=== PATIENT | female | born 1945 | race Caucasian/White ===

== ENCOUNTER 2018-04-19 22:25 | Emergency (ER) | payer MEDICARE, OTHER ==
--- NOTE | 2018-04-21 00:38 | EDM.PDOC ---
ED HPI GENERAL MEDICAL PROBLEM - General Chief Complaint: Abdominal Pain Stated Complaint: HERNIA PAIN PER PT Time Seen by Provider: 04/19/18 23:20 Source of Information: Reports: Patient History Limitations: Reports: No Limitations - History of Present Illness INITIAL COMMENTS - FREE TEXT/NARRATIVE: This pleasant stoic and overweight woman has moderate flat affect, doesn't smile , looks straight ahead and almost stares vacantly at me as if to fixate on every word I'm saying . She's had a large abdominal hernia abdominal wall. Last evening she sat down and noted left para rectus abdominal wall herniae that had been repaired repaired with mesh graft hernia was getting bigger. With this she became concerned. Her last visit to her doctor was 6 months ago. She did not strain more today than usual. She has a bowel movement today and yesterday without difficulty. Has 1 out of 10 discomfort presently. At the site of her para rectus midabdomen hernia. He eats regularly .he said previous calcaneal surgery. He drove himself to the hospital today. . 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 (see below) Other Treatments RETAIL PROPERTY MANAGER: cool cloth to forehead - Related Data Allergies Allergy/AdvReac Type Severity Reaction Status Date / Time adhesive Allergy Rash Verified 05/14/14 10:08 Penicillins Allergy Hives Verified 05/14/14 10:08 sulfamethoxazole Allergy Hives Verified 05/14/14 10:08 [From Bactrim] trimethoprim [From Bactrim] Allergy Hives Verified 05/14/14 10:08 Home Meds: Home Meds Aspirin [Ecotrin] 325 mg PO DAILY 04/08/14 [History] FLUoxetine [PROzac] 40 mg PO DAILY 04/08/14 [History] Fluticasone/Salmeterol [Advair 250-50] 1 puff PO BID 04/08/14 [History] MV,Ca,Min/Iron Fum/FA/Vit K [Multi For Her Tablet] 1 tab PO DAILY 04/08/14 [ History] QUEtiapine Fumarate [Seroquel] 25 mg PO DAILY 04/08/14 [History] QUEtiapine Fumarate [Seroquel] 50 mg PO BEDTIME 04/08/14 [History] Terbinafine HCl [Terbinafine] 1 applic TOP DAILY 04/08/14 [History] Past Medical History Cardiovascular History: Reports: Blood Clots/VTE/DVT, Syncope Respiratory History: Reports: COPD, Pneumonia, Recurrent Gastrointestinal History: Reports: Bowel Obstruction, Other (See Below) Other Gastrointestinal History: colon surgery with hernia following- hernia to left lower abd repaired with mesh but over time hernia reapeared 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 Musculoskeletal History: Reports: Arthritis, Osteoarthritis Other Psychiatric History: verbalizes some depression at times - Past Surgical History GI Surgical History: Reports: Colon, Hernia Repair/Other Social & Family History - Family History Family Medical History: Noncontributory - Tobacco Use Smoking Status *Q: Current Every Day Smoker Years of Tobacco use: 50 Packs/Tins Daily: 1.5 Used Tobacco, but Quit: No - Caffeine Use Caffeine Use: Reports: Soda Other Caffeine Use: 8cans of pop daily - Alcohol Use Days Per Week of Alcohol Use: 2 Number of Drinks Per Day: 2 Total Drinks Per Week: 4 - Recreational Drug Use Recreational Drug Use: No ED ROS GENERAL - Review of Systems Review Of Systems: See Below Constitutional: Reports: No Symptoms HEENT: Reports: No Symptoms Respiratory: Reports: No Symptoms Cardiovascular: Reports: No Symptoms Endocrine: Reports: No Symptoms GI/Abdominal: Reports: Abdominal Pain (7 years ago had a mesh implant and then) , Other (Is mild abdominal discomfort for the mesh implant was and gave way.) : Reports: No Symptoms Musculoskeletal: Reports: No Symptoms Skin: Reports: No Symptoms Neurological: Reports: No Symptoms Psychiatric: Reports: No Symptoms ED EXAM, GI/ABD - Physical Exam Exam: See Below Text/Narrative:: This patient is a pleasant obese woman with flat affect with mild abdominal discomfort. Exam Limited By: No Limitations General Appearance: Alert, WD/WN, Mild Distress Eyes: Bilateral: Normal Appearance Ears: Normal External Exam, Normal Canal, Hearing Grossly Normal, Normal TMs Nose: Normal Inspection, Normal Mucosa, No Blood Throat/Mouth: Normal Inspection Head: Atraumatic Neck: Normal Inspection Respiratory/Chest: No Respiratory Distress GI/Abdominal Exam: Soft, Non-Tender, No Abnormal Bruit, No Mass, Pelvis Stable, Other (The mesh implant service cannot be palpated through the abdominal wall.) (Female) Exam: Deferred Rectal (Female) Exam: Normal Exam Back Exam: Normal Inspection Extremities: Normal Inspection Neurological: Alert, Oriented, Normal Cognition Psychiatric: Normal Affect, Normal Mood Skin Exam: Warm, Dry, Intact, Normal Color Course - Vital Signs Last Recorded V/S: Last Vital Signs Temp 36.4 C 04/19/18 23:00 Pulse 76 04/19/18 23:00 Resp 18 04/19/18 23:00 BP 134/60 04/19/18 23:00 Pulse Ox 94 L 04/19/18 23:00 Departure - Departure Time of Disposition: 23:45 Disposition: Home, Self-Care 01 Clinical Impression: Abdominal hernia without obstruction and without gangrene - Discharge Information Instructions: Abdominal Pain, Adult, [id number] Referrals: Lv Deshpande MD [Primary Care Provider] - Forms: ED Department Discharge Additional Instructions: Follow-up here doctor next 3-7 days. you need to see a surgeon to discuss possible repair of this large abdominal hernia.
== END 2018-04-20 00:45 | disposition home or self-care (01) ==
LOC: FB.ED 22:25
DX: K46.9 Unspecified abdominal hernia without obstruction or gangrene (principal); F17.210 Nicotine dependence, cigarettes, uncomplicated; M19.90 Unspecified osteoarthritis, unspecified site; Z79.82 Long term (current) use of aspirin; Z79.899 Other long term (current) drug therapy; Z91.09 Other allergy status, other than to drugs and biological substances; Z88.0 Allergy status to penicillin; Z88.2 Allergy status to sulfonamides; Z88.1 Allergy status to other antibiotic agents
CPT/HCPCS: 99282

== ENCOUNTER 2018-11-06 17:01 | Emergency (ER) | payer MEDICARE, OTHER ==
[2018-11-06] MEDS ORDERED: Sodium Chloride 0.9% 10 ML Syringe FLUSH PRN (17:23)
[2018-11-06] MEDS ORDERED: Sodium Chloride 0.9% 500 ML IV ONE (17:25)
[2018-11-06] MEDS ORDERED: Albuterol/Ipratropium 3.0-0.5 MG/3 ML Neb Soln NEB ONE ×2 (17:26→18:43)
[2018-11-06] MEDS ORDERED: Dexamethasone 4 MG/ML 5 ML MDV IVPUSH ONE (17:26)
[2018-11-06] MEDS ORDERED: Pantoprazole 40 MG Vial IVPUSH ONE (17:27)
[2018-11-06] MEDS ORDERED: Ondansetron 4 MG/2 ML SDV IVPUSH ONE (17:27)
[2018-11-06] MEDS ORDERED: HYDROmorphone 2 MG/ML SDV IVPUSH ONE (17:27)
--- NOTE | 2018-11-06 17:36 | EDM.PDOC ---
ED HPI GENERAL MEDICAL PROBLEM - General Chief Complaint: Abdominal Pain Stated Complaint: SOB Time Seen by Provider: 11/06/18 17:29 Source of Information: Reports: Patient History Limitations: Reports: No Limitations - History of Present Illness INITIAL COMMENTS - FREE TEXT/NARRATIVE: Presents with "hernia" pain, N/V/D, and SOB since yesterday. Has a h/o COPD, still smokes cigarettes, denies CAD. Cough is chronic, no worse. Onset Date: 11/05/18 Location: Reports: Abdomen Quality: Reports: Dull Severity: Moderate Associated Symptoms: Reports: Cough, Nausea/Vomiting, Shortness of Breath. Denies: Chest Pain Left abdomen Pain Score (Numeric/FACES): 7 - Related Data Allergies Allergy/AdvReac Type Severity Reaction Status Date / Time adhesive Allergy Rash Verified 11/06/18 17:22 Penicillins Allergy Hives Verified 11/06/18 17:22 sulfamethoxazole Allergy Hives Verified 11/06/18 17:22 [From Bactrim] trimethoprim [From Bactrim] Allergy Hives Verified 11/06/18 17:22 Home Meds: Home Meds Aspirin [Ecotrin] 325 mg PO DAILY 04/08/14 [History] FLUoxetine [PROzac] 40 mg PO DAILY 04/08/14 [History] Fluticasone/Salmeterol [Advair 250-50] 1 puff PO BID 04/08/14 [History] MV,Ca,Min/Iron Fum/FA/Vit K [Multi For Her Tablet] 1 tab PO DAILY 04/08/14 [ History] QUEtiapine Fumarate [Seroquel] 25 mg PO DAILY 04/08/14 [History] QUEtiapine Fumarate [Seroquel] 50 mg PO BEDTIME PRN 04/08/14 [History] Cholecalciferol (Vitamin D3) [Vitamin D3] 1,000 units PO DAILY 11/06/18 [History ] Past Medical History Cardiovascular History: Reports: Blood Clots/VTE/DVT, Syncope Respiratory History: Reports: COPD, Pneumonia, Recurrent Gastrointestinal History: Reports: Bowel Obstruction, Other (See Below) Other Gastrointestinal History: colon surgery with hernia following- hernia to left lower abd repaired with mesh but over time hernia reapeared 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 Musculoskeletal History: Reports: Arthritis, Osteoarthritis Other Psychiatric History: verbalizes some depression at times Oncologic (Cancer) History: Reports: Lung - Past Surgical History GI Surgical History: Reports: Appendectomy, Cholecystectomy, Colon, Hernia Repair/Other Social & Family History - Family History Family Medical History: Noncontributory - Tobacco Use Smoking Status *Q: Current Every Day Smoker Tobacco Use Within Last Twelve Months: Cigarettes - Caffeine Use Caffeine Use: Reports: Soda Other Caffeine Use: 8cans of pop daily ED ROS GENERAL - Review of Systems Review Of Systems: ROS reveals no pertinent complaints other than HPI. ED EXAM, GI/ABD - Physical Exam Exam: See Below Exam Limited By: No Limitations General Appearance: Alert, WD/WN, No Apparent Distress Ears: Normal External Exam Nose: Normal Inspection Throat/Mouth: No Airway Compromise Head: Atraumatic, Normocephalic Neck: Supple Respiratory/Chest: No Respiratory Distress, Decreased Breath Sounds, Wheezing Cardiovascular: Regular Rate, Rhythm, No Murmur GI/Abdominal Exam: Normal Bowel Sounds, Soft, Tender (Lower abdominal hernia is firm tender, I am unable to reduce it) Back Exam: Full Range of Motion Extremities: Normal Range of Motion Neurological: Alert, Normal Cognition Skin Exam: Warm, Dry, Intact EKG INTERPRETATION EKG Date: 11/06/18 Time: 17:54 Rhythm: NSR Rate (Beats/Min): 90 [place]: Normal P-Wave: Present ST-T: Normal Course - Vital Signs Last Recorded V/S: Last Vital Signs Temp 36.9 C 11/06/18 21:09 Pulse 97 11/06/18 21:09 Resp 18 11/06/18 21:09 BP 135/58 L 11/06/18 21:09 Pulse Ox 94 L 11/06/18 21:09 - Orders/Labs/Meds Orders: Active Orders 24 hr Category Date Time Status Benitez Catheter Insertion [Insert Urinary Catheter] [OM. Care 11/06/18 18:30 Ordered PC] Q24H Oxygen Therapy, ED [RC] ASDIRECTED Care 11/06/18 17:56 Active Urinary Catheter Assessment [RC] QSHIFT Care 11/06/18 18:17 Active CXR [Chest 1V Frontal] [CR] Stat Exams 11/06/18 17:23 Taken Chest Abdomen Pelvis w Cont [CT] Stat Exams 11/06/18 18:34 Ordered Sodium Chloride 0.9% [Normal Saline] 1,000 ml Med 11/06/18 18:45 Active IV ASDIRECTED Sodium Chloride 0.9% [Saline Flush] Med 11/06/18 17:23 Active 10 ml FLUSH ASDIRECTED PRN Saline Lock Insert [OM.PC] Routine Oth 11/06/18 17:23 Ordered EKG 12 Lead [EK] Stat Ther 11/06/18 17:23 Ordered Medication Orders Sodium Chloride (Normal Saline) 1,000 mls @ 100 mls/hr IV ASDIRECTED KULDEEP Last Admin: 11/06/18 18:37 Dose: 100 mls/hr Sodium Chloride (Saline Flush) 10 ml FLUSH ASDIRECTED PRN PRN Reason: Keep Vein Open Last Admin: 11/06/18 17:29 Dose: 10 ml Labs: Laboratory Tests 11/06/18 11/06/18 11/06/18 Range/Units 17:45 17:45 17:45 WBC 12.5 H (4.5-12.0) X10-3/uL RBC 5.38 H (3.23-5.20) x10(6)uL Hgb 16.4 H (11.5-15.5) g/dL Hct 47.4 (30.0-51.3) % MCV 88.0 (80-96) fL MCH 30.4 (27.7-33.6) pg MCHC 34.6 (32.2-35.4) g/dL RDW 13.0 (11.5-15.5) % Plt Count 494 H (125-369) X10(3)uL MPV 6.4 L (7.4-10.4) fL Neut % (Auto) 82.4 H (46-82) % Lymph % (Auto) 10.7 L (13-37) % [place] % (Auto) 5.7 (4-12) % Eos % (Auto) 1 (1.0-5.0) % Baso % (Auto) 1 (0-2) % Neut # (Auto) 10.3 H (1.6-8.3) # Lymph # (Auto) 1.3 (0.6-5.0) # [place] # (Auto) 0.7 (0.0-1.3) # Eos # (Auto) 0.1 (0.0-0.8) # Baso # (Auto) 0.1 (0.0-0.2) # D-Dimer, Quantitative (0.0-0.59) mg/LFEU Sodium 134 L (135-145) mmol/L Potassium 3.6 (3.5-5.3) mmol/L Chloride 95 L (100-110) mmol/L Carbon Dioxide 34 H (21-32) mmol/L BUN 10 (7-18) mg/dL Creatinine 1.0 (0.55-1.02) mg/dL Est Cr Clr Drug Dosing TNP Estimated GFR (MDRD) 54 L (>60) BUN/Creatinine Ratio 10.0 (9-20) Glucose 123 H (80-116) mg/dL Lactic Acid (0.4-2.2) mmol/L Calcium 10.3 H (8.6-10.2) mg/dL Total Bilirubin 0.7 (0.1-1.3) mg/dL AST 22 (5-25) IU/L ALT 22 (12-36) U/L Alkaline Phosphatase 118 H (56-112) IU/L Troponin I < 0.017 L (<0.017-0.056) ng/mL Total Protein 7.7 (6.0-8.0) g/dL Albumin 3.8 (3.2-4.6) g/dL Globulin 3.9 g/dL Albumin/Globulin Ratio 1.0 Amylase 26 (25-115) U/L Urine Color (YELLOW) Urine Appearance (CLEAR) Urine pH (5.0-6.5) Ur Specific [place] (1.010-1.025) Urine Protein (NEGATIVE) mg/dL Urine Glucose (UA) (NORMAL) mg/dL Urine Ketones (NEGATIVE) mg/dL Urine Occult Blood (NEGATIVE) Urine Nitrite (NEGATIVE) Urine Bilirubin (NEGATIVE) Urine Urobilinogen (NEGATIVE) mg/dL Ur Leukocyte Esterase (NEGATIVE) Urine RBC (0-5) Urine WBC (0-5) Ur Squamous Epith Cells (NS,R,O) Urine Bacteria (NS) Urine Mucus (NS) 11/06/18 11/06/18 11/06/18 Range/Units 17:45 17:45 18:13 WBC (4.5-12.0) X10-3/uL RBC (3.23-5.20) x10(6)uL Hgb (11.5-15.5) g/dL Hct (30.0-51.3) % MCV (80-96) fL MCH (27.7-33.6) pg MCHC (32.2-35.4) g/dL RDW (11.5-15.5) % Plt Count (125-369) X10(3)uL MPV (7.4-10.4) fL Neut % (Auto) (46-82) % Lymph % (Auto) (13-37) % [place] % (Auto) (4-12) % Eos % (Auto) (1.0-5.0) % Baso % (Auto) (0-2) % Neut # (Auto) (1.6-8.3) # Lymph # (Auto) (0.6-5.0) # [place] # (Auto) (0.0-1.3) # Eos # (Auto) (0.0-0.8) # Baso # (Auto) (0.0-0.2) # D-Dimer, Quantitative 1.83 H (0.0-0.59) mg/LFEU Sodium (135-145) mmol/L Potassium (3.5-5.3) mmol/L Chloride (100-110) mmol/L Carbon Dioxide (21-32) mmol/L BUN (7-18) mg/dL Creatinine (0.55-1.02) mg/dL Est Cr Clr Drug Dosing Estimated GFR (MDRD) (>60) BUN/Creatinine Ratio (9-20) Glucose (80-116) mg/dL Lactic Acid 1.3 (0.4-2.2) mmol/L Calcium (8.6-10.2) mg/dL Total Bilirubin (0.1-1.3) mg/dL AST (5-25) IU/L ALT (12-36) U/L Alkaline Phosphatase (56-112) IU/L Troponin I (<0.017-0.056) ng/mL Total Protein (6.0-8.0) g/dL Albumin (3.2-4.6) g/dL Globulin g/dL Albumin/Globulin Ratio Amylase (25-115) U/L Urine Color Yellow (YELLOW) Urine Appearance Clear (CLEAR) Urine pH 6.5 (5.0-6.5) Ur Specific [place] 1.015 (1.010-1.025) Urine Protein Trace (NEGATIVE) mg/dL Urine Glucose (UA) Normal (NORMAL) mg/dL Urine Ketones 15 H (NEGATIVE) mg/dL Urine Occult Blood Moderate H (NEGATIVE) Urine Nitrite Negative (NEGATIVE) Urine Bilirubin Small H (NEGATIVE) Urine Urobilinogen Normal (NEGATIVE) mg/dL Ur Leukocyte Esterase Negative (NEGATIVE) Urine RBC 5-10 H (0-5) Urine WBC 0-5 (0-5) Ur Squamous Epith Cells Few H (NS,R,O) Urine Bacteria Moderate H (NS) Urine Mucus Moderate H (NS) Meds: Medications Generic Name Dose Route Start Last Admin Trade Name Freq PRN Reason Stop Dose Admin Sodium Chloride 1,000 mls @ 100 mls/hr 11/06/18 18:45 11/06/18 18:37 Normal Saline IV 100 mls/hr ASDIRECTED KULDEEP Administration Sodium Chloride 10 ml 11/06/18 17:23 11/06/18 17:29 Saline Flush FLUSH 10 ml ASDIRECTED PRN Administration Keep Vein Open Discontinued Medications Generic Name Dose Route Start Last Admin Trade Name Freq PRN Reason Stop Dose Admin Albuterol/Ipratropium 3 ml 11/06/18 17:26 11/06/18 17:39 Duoneb 3.0-0.5 Mg/3 Ml NEB 11/06/18 17:27 3 ml ONETIME ONE Administration Albuterol/Ipratropium 3 ml 11/06/18 18:43 11/06/18 18:45 Duoneb 3.0-0.5 Mg/3 Ml NEB 11/06/18 18:44 3 ml ONETIME ONE Administration Cefoxitin Sodium 2 gm 11/06/18 21:12 Mefoxin IVPUSH 11/06/18 21:13 ONETIME ONE Dexamethasone 10 mg 11/06/18 17:26 11/06/18 17:45 Dexamethasone IVPUSH 11/06/18 17:27 10 mg ONETIME ONE Administration Hydromorphone HCl 0.5 mg 11/06/18 17:27 11/06/18 17:41 Dilaudid IVPUSH 11/06/18 17:28 0.5 mg ONETIME ONE Administration Sodium Chloride 500 mls @ 500 mls/hr 11/06/18 17:25 11/06/18 17:33 Normal Saline IV 11/06/18 18:24 500 mls/hr .BOLUS ONE Administration Iopamidol 83 ml 11/06/18 19:23 11/06/18 19:45 Isovue-370 (76%) IV 11/06/18 19:24 83 ml . DIRECTED ONE Administration Ondansetron HCl 4 mg 11/06/18 17:27 11/06/18 17:36 Zofran IVPUSH 11/06/18 17:28 4 mg ONETIME ONE Administration Pantoprazole Sodium 40 mg 11/06/18 17:27 11/06/18 17:43 Protonix Iv IVPUSH 11/06/18 17:28 40 mg ONETIME ONE Administration - Radiology Interpretation Free Text/Narrative:: CTA Chest/Abd/Pelvis: No pulmonary embolus, stable SHIRIN nodular density, AAA @ 3.8 cm, mechanical small bowel obstruction due to incarcerated ventral hernia, no free air. (per Dr. Nolen) - Re-Assessments/Exams Free Text/Narrative Re-Assessment/Exam: 11/06/18 21:04 Pain and nausea have improved. I am still unable to reduce the incarcerated hernia after three attempts. Wheezes have slightly improved after DuoNeb x 2 and Decadron 10mg IV. 11/06/18 21:07 Dr. Arellano recommends [facility] transfer due to respiratory issues. 11/06/18 21:17 Dr. Franklin accepts patient for transfer to [facility]. Departure - Departure Time of Disposition: 21:18 Disposition: DC/Tfer to Acute Hospital 02 Condition: Fair Clinical Impression: Small bowel obstruction, Incarcerated ventral hernia, COPD exacerbation - Discharge Information Referrals: PCP,Unknown [Primary Care Provider] - Forms: ED Department Discharge - My Orders Last 24 Hours: My Active Orders 11/06/18 17:23 CXR [Chest 1V Frontal] [CR] Stat Sodium Chloride 0.9% [Saline Flush] 10 ml FLUSH ASDIRECTED PRN Saline Lock Insert [OM.PC] Routine EKG 12 Lead [EK] Stat 11/06/18 17:56 Oxygen Therapy, ED [RC] ASDIRECTED 11/06/18 18:17 Urinary Catheter Assessment [RC] QSHIFT 11/06/18 18:30 Benitez Catheter Insertion [Insert Urinary Catheter] [OM.PC] Q24H 11/06/18 18:34 Chest Abdomen Pelvis w Cont [CT] Stat 11/06/18 18:45 Sodium Chloride 0.9% [Normal Saline] 1,000 ml IV ASDIRECTED - Assessment/Plan Last 24 Hours: My Active Orders 11/06/18 17:23 CXR [Chest 1V Frontal] [CR] Stat Sodium Chloride 0.9% [Saline Flush] 10 ml FLUSH ASDIRECTED PRN Saline Lock Insert [OM.PC] Routine EKG 12 Lead [EK] Stat 11/06/18 17:56 Oxygen Therapy, ED [RC] ASDIRECTED 11/06/18 18:17 Urinary Catheter Assessment [RC] QSHIFT 11/06/18 18:30 Benitez Catheter Insertion [Insert Urinary Catheter] [OM.PC] Q24H 11/06/18 18:34 Chest Abdomen Pelvis w Cont [CT] Stat 11/06/18 18:45 Sodium Chloride 0.9% [Normal Saline] 1,000 ml IV ASDIRECTED
[2018-11-06] MEDS ORDERED: Sodium Chloride 0.9% 1,000 ML IV SCH (18:45)
[2018-11-06] MEDS ORDERED: Iopamidol 755 Mg/ML 100 ML Bottle IV ONE (19:23)
[2018-11-06] MEDS ORDERED: cefOXitin 2 GM Vial IVPUSH ONE (21:12)
--- NOTE | 2018-11-07 09:56 | CT ---
INDICATION: Short of breath, abdominal pain, PE protocol, elevated D-dimer. CT CHEST, ABDOMEN, AND PELVIS WITH CONTRAST: CT CHEST: Spiral 1.25 mm axial sections were obtained through the chest with sagittal and coronal reconstructions, 11/06/18, and revealed there are heavy markings, as previously, partly fibrotic and in the left upper lobe, compatible with residual of malignancy, post radiation therapy. This appears stable, compared with 10/30/18. No evidence of pulmonary emboli could be identified. An acute area of pneumonia was not seen. Mediastinal lymphadenopathy is again noted, which is nonspecific and certainly could be related to the patients neoplasia. The heart did not appear enlarged. No pericardial effusion was seen. Calcifications are noted in the aorta and coronary arteries. No evidence of pulmonary emboli could be identified. A dextroconcave scoliosis of the lower thoracic spine is noted with mild hypertrophic degenerative changes in the mid thoracic spine and upper middle thoracic spine. IMPRESSION: 1. No evidence of PE identified. 2. No definite acute abnormality was seen. 3. Left upper lobe post malignancy changes, stable. 4. Areas of pleural parenchymal change again noted in a few areas, compatible with fibrosis. CT ABDOMEN AND PELVIS WITH CONTRAST: Examination of the abdomen and pelvis was obtained with spiral 3.75 mm axial sections with sagittal and coronal reconstructions with IV contrast only. An abdominal aortic aneurysm is noted, infrarenal and supra-bifurcation, measuring 3.8 cm. Just above the bifurcation, the lumen narrows to approximately 18 mm. A large ventral lower abdominal/upper pelvis hernia is noted, which has a large opening into the ventral midline of the abdomen, measuring approximately 65 mm. The hernia includes multiple loops of small bowel with dilated small bowel within the peritoneal cavity. Fusiform narrowing of the lumen of the dilated bowel is noted extending into the hernia. Torsion on the bowel may be present. No definite wall thickening is seen. No pneumatosis intestinalis is noted. The ventral hernia measured approximately 15.6 x 7.9 cm in transverse and AP diameters. The dilated small bowel has multiple air fluid levels at various heights, suggesting the possibility of mechanically obstructive process, due to that fusiform narrowing at the opening of the ventral hernia, best seen on axial image #75 of #[id number]. A Benitez catheter is noted in the urinary bladder. The appendix is absent, compatible with history of its removal. The gallbladder is absent, compatible with history of its removal. Evidence of anastomosis is noted in the proximal sigmoid colon from previous colonic resection. Findings were compared with CT of the pelvis dated 07/14/10, at which time a hernia apparently was not present. The abdominal aortic aneurysm was only 2.6 cm on the previous 2009 examination. Bilateral inguinal hernias, including only fat, are noted. These are small in size. Mild renal cortical scarring is noted. No obstructive uropathy was suggested. The liver appears grossly normal. The common bile duct appeared normal for a post cholecystectomy patient. The spleen and pancreas appear to be normal. The adrenal glands were unremarkable. No definite retroperitoneal mass was seen. No additional organomegaly, mass lesions, or free fluid collections were identified in the abdomen or pelvis. The uterus is absent, compatible with history of its removal. Degenerative changes and disk disease are noted at L4-5 and L5-S1 with grade 1 anterolisthesis at L4-5. IMPRESSION: 1. Large ventral hernia with fusiform narrowing of a loop of what appears to be ileum or distal jejunum, leading to multiple more proximal loops of dilated small bowel with air fluid levels, suggesting mechanically obstructive process at the opening of that large ventral hernia. Multiple loops of small bowel are noted in that hernia sac. The opening is fairly large, however. Scarring may have occurred to produce the apparent fusiform narrowing of that loop of bowel leading to the dilated loops of small bowel with air fluid levels. 2. Abdominal aortic aneurysm increased in size from 2.6 to 3.8 cm, infrarenal, extending a distance of approximately 8 cm craniocaudad of the aorta. 3. Post appendectomy. 4. Post cholecystectomy. 5. Post hysterectomy. 6. Degenerative changes and disk disease L4-5 and L5-S1 with anterolisthesis at L4-5. 7. ASD/ASHD. 8. Mild renal cortical scarring. Total exam DLP = 1,264.02 mGy-cm for CT chest, abdomen, and pelvis. Report was called to Dr. Garcia at 2045 hours on 11/06/18. [facility]
--- NOTE | 2018-11-07 14:41 | CR ---
INDICATION: Short of breath. CHEST: An AP upright view of the chest 11/06/18 was compared with 05/29/12 and revealed the aorta to be tortuous with calcification in the arch. A definite active infiltrate or effusion was not identified. The heart appears near the upper limits of normal in size but is emphasized by the AP positioning. IMPRESSION: No acute process. MTDD
== END 2018-11-06 21:53 ==
LOC: FB.ED 17:01
DX: K43.6 Other and unspecified ventral hernia with obstruction, without gangrene (principal); J44.1 Chronic obstructive pulmonary disease with (acute) exacerbation; F17.210 Nicotine dependence, cigarettes, uncomplicated; Z88.0 Allergy status to penicillin; Z88.2 Allergy status to sulfonamides; Z91.048 Other nonmedicinal substance allergy status; Z79.82 Long term (current) use of aspirin; Z79.899 Other long term (current) drug therapy
CPT/HCPCS: 36415; 51702; 71045; 71260; 74177; 80053; 81001; 82150; 83605; 84484; 85025; 85379; 93005; 94640; 96361; 96374; 96375; 99285; C9113; J0694; J1100; J1170; J2405; J7030; J7040; Q9967; J7620-GY

== ENCOUNTER 2018-11-13 12:15 | Inpatient (IN) | payer MEDICARE, OTHER ==
[2018-11-13] MEDS ORDERED: Polyethylene Glycol 3350 Powder 17 GM Packet PO PRN (17:30)
[2018-11-13] MEDS: Enoxaparin 30 MG/0.3 ML Syringe SUBCUT SCH (18:28)
[2018-11-13] MEDS ORDERED: QUEtiapine 25 MG Tab PO SCH (21:00)
[2018-11-13] MEDS: Formoterol/Mometasone 200-5 MCG 8.8 GM Inhaler IH SCH (21:13)
[2018-11-13] MEDS: Acetaminophen 325 MG Tab PO PRN (21:14)
[2018-11-14] MEDS: Formoterol/Mometasone 200-5 MCG 8.8 GM Inhaler IH SCH ×2 (06:21→20:10)
[2018-11-14] MEDS: Multivitamin Tab PO SCH (08:30)
[2018-11-14] MEDS: Aspirin 325 MG Tab.EC PO SCH (08:30)
[2018-11-14] MEDS: Cholecalciferol (Vitamin D3) 1,000 Unit Tab PO SCH (08:30)
[2018-11-14] MEDS: FLUoxetine 20 MG Cap PO SCH (08:31)
[2018-11-14] MEDS: Nicotine 14 MG/24 Hr Patch TRDERM SCH (08:33)
[2018-11-14] MEDS ORDERED: QUEtiapine 25 MG Tab PO SCH (12:00)
--- NOTE | 2018-11-14 12:19 | CR ---
INDICATION: Cough, low oxygen level. CHEST: PA and lateral views of the chest were obtained 11/14/18 and compared with 11/06/18 and 05/29/12. The heart appears to be at the upper limits of normal in size. Bibasilar pleural parenchymal changes are suggested, which may be on the basis of pneumonia and pleuritis. Some minimal patchy infiltrate extends into the left mid lung field and also in the left upper lung field suprahilar area. All these areas could represent patchy areas of pneumonia with slightly less prominent suprahilar area of increased markings on the right. A process such as aspiration pneumonia would be a consideration with this appearance. No gross consolidating pneumonia was seen, except for questionably at the medial left lower lobe posteriorly. Pleuritis is present bilaterally with posterior sulci and costophrenic angles blunted. A mild dextroconcave scoliosis of the lower thoracic spine is noted. The aorta is somewhat tortuous with calcification in the arch. IMPRESSION: 1. Bibasilar pneumonia and pleuritis. 2. ASHD with heart at the upper limits of normal in size. 3. Scoliosis. 4. Additional patchy infiltrate suggested suprahilar bilaterally, left greater than right, raising question of aspiration pneumonia additionally. MTDD
[2018-11-14] MEDS: traMADol 50 MG Tab PO PRN (13:16)
--- NOTE | 2018-11-14 13:54 | HP ---
ADMISSION DATE: 11/13/2018 CHIEF COMPLAINT: Postoperative care, large abdominal ventral hernia repair, chronic comorbid diseases. HISTORY OF PRESENT ILLNESS: Angela Fierro is a 73-year-old, female from [facility], who was transferred from [place] in [facility] for postoperative care. She had undergone on 11/09/2018, a ventral abdominal hernia repair. It was initially reduced and then repaired. Postop, there were some issues of confusion and postoperative healing. Comorbid behaviors include alcohol and nicotine use. She was discharged in good condition to [facility]. MEDICATIONS: 1. Ultram 50 mg q.6 hours p.r.n. for pain. 2. Seroquel 25 in the morning, 50 at bedtime. 3. Fluoxetine 40 mg one p.o. daily. 4. Tylenol 650 p.o. q.6 hours p.r.n. for pain. 5. Vitamin D3. 6. Multivitamin. 7. Advair 250/50 one puff b.i.d. 8. 325 aspirin. 9. MiraLax 17 g daily p.r.n. ALLERGIES: Allergic to adhesives, penicillin, sulfa, and trimethoprim. No other medication by mouth or latex allergies. PAST MEDICAL HISTORY: Significant for host of surgical interventions including hernia abdominal repair in 2009 and most recent re-repair on 11/08/2018. She has had laparoscopic cholecystectomy for benign disease, hysterectomy with oophorectomy, cholecystectomy, two previous sections. Carries diagnosis of small cell lung cancer, left lung. Chronic illnesses include depression, history of postoperative deep vein thrombosis, chronic obstructive pulmonary disease, and depression. SOCIAL HISTORY: Lives alone in apartment. Retired. 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 . Three children, 2 daughters, 1 son, 4 grandchildren. Continues to smoke up until hospitalization 1/2 pack per day, 52 years duration, moderate alcohol intake. No illicit drug use. FAMILY HISTORY: Noncontributory. REVIEW OF SYSTEMS: GENERAL: Feeling better. Pain is better. EYES: Sees well. EARS: Hears well. Some difficulty in crowds. OROPHARYNX: No intraoral lesions. Swallowing without difficulty. CHEST: Chronic cough. No hemoptysis. CARDIOVASCULAR: Denies chest pain. GASTROINTESTINAL: Regular predictable stools. Some constipation since hospitalization. GENITOURINARY: Good voiding pattern. Mild stress incontinence. No blood in urine. SKIN: No lesions, eruptions, or moles. ENDOCRINE: No excessive thirst or urination. ALLERGIES: No chronic cough. PSYCHIATRIC: Depression history. PHYSICAL EXAMINATION: VITAL SIGNS: 37 degrees, 149/80, 18, 95, 2 L per nasal cannula. GENERAL: Young lady, cooperative, conversant, appears older than stated age. HEENT: Reveal funduscopic benign. Bright TMs. Clear nasal discharge. Mouth and oropharynx clear. Tongue midline. Good gag reflex. No intraoral lesions. NECK: Benign. Thyroid small. CHEST: Coarse rhonchi throughout all lung rolle, clears somewhat with cough. HEART: Distant heart sounds. Occasional ectopy. No significant murmur. ABDOMEN: Large vertical incision wrapping around the umbilicus. [place] in place. Two drain sites closed. Good bowel sounds. PELVIC AND RECTAL: Deferred. EXTREMITIES: Well perfused. Venous stasis changes. Reflex symmetric. LABORATORY STUDIES: None here. ASSESSMENT: Postoperative care, large ventral wall abdominal hernia repair. SECONDARY DIAGNOSES: Multiple issues including lung carcinoma, chronic obstructive pulmonary disease, multiple surgical procedures, and depression. PLAN: Admission indicated. Pain control, comfort measures, rehab and intervention, we will re-review, echocardiogram be performed, x-ray as timing appropriate. /[id number] JACQUIE/MILAGROS
--- NOTE | 2018-11-14 14:07 | PN ---
DATE SEEN: 11/14/2018 SUBJECTIVE: Angela alarcon is a 73-year-old, female, admitted to swing bed from [facility] in [place]. Had a pretty good night. Eggs on board. Pain is controlled. Slept reasonably well last night. Chest x-ray to be performed and echocardiogram to be performed to evaluate heart status. OBJECTIVE: VITAL SIGNS: 36.8, 135/75, 18, 96% on 1 L. GENERAL: In good spirits this morning. CHEST: Coarse rhonchi. HEART: No ectopy today. ABDOMEN: Surgical wound and ta in good position. ASSESSMENT: Postoperative rehab care, ventral hernia; comorbid diseases, significant. PLAN: Continue with PT, OT, and evaluate probably in 1 week's duration. /[id number] JACQUIE/MILAGROS
[2018-11-14] MEDS: Enoxaparin 30 MG/0.3 ML Syringe SUBCUT SCH (17:55)
[2018-11-15] MEDS: Formoterol/Mometasone 200-5 MCG 8.8 GM Inhaler IH SCH ×2 (06:08→21:21)
[2018-11-15] MEDS: traMADol 50 MG Tab PO PRN ×2 (07:46→16:43)
[2018-11-15] MEDS: Nicotine 14 MG/24 Hr Patch TRDERM SCH (08:41)
[2018-11-15] MEDS: Aspirin 325 MG Tab.EC PO SCH (08:41)
[2018-11-15] MEDS: Multivitamin Tab PO SCH (08:42)
[2018-11-15] MEDS: FLUoxetine 20 MG Cap PO SCH (08:42)
[2018-11-15] MEDS: Cholecalciferol (Vitamin D3) 1,000 Unit Tab PO SCH (08:42)
[2018-11-15] MEDS: Levofloxacin 250 MG Tab PO SCH (12:51)
[2018-11-15] MEDS: Acetaminophen 325 MG Tab PO PRN (13:15)
--- NOTE | 2018-11-15 13:35 | PN ---
DATE SEEN: 11/15/2018 HISTORY OF PRESENT ILLNESS: Jackeline Fierro is a 73-year-old female, seen today for review. Had large ventral wall abdominal hernia repair about a week ago. Dr. Cohen, surgeon, [facility], provider of record. Has upcoming appointment at about the 2-week sherie. Phone with Dr. Albarran, Radiation Oncology, plan for tomorrow 11/16/2018, was declined due to hospital stay. Chest x-ray performed revealed stability, no conversation of cancer by plain film. Pneumonia is suspected. She has had a little bit of productive cough. Echocardiogram revealed ejection fraction of 65% with trivial valvular disease. PHYSICAL EXAMINATION: VITAL SIGNS: 78 kg, 36.9, pulse of 79, 147/66, 93%. O2 in place. GENERAL: Appears comfortable. NECK: Benign. Thyroid small. CHEST: Diffuse wheezing, coarse rhonchi throughout. HEART: No ectopy or murmur. ABDOMEN: Benign. Ventral abdominal wall surgical scar healing well. Verna in good position. Drain sites. Unremarkable. DIRECT SERVICE PROVIDER: Chronic obstructive pulmonary disease. PLAN: We will continue present therapy. We will add a little Levaquin for pneumonia, complementary care, and well being. /[id number] JACQUIE/MILAGROS
[2018-11-15] MEDS: Enoxaparin 30 MG/0.3 ML Syringe SUBCUT SCH (18:25)
[2018-11-16] MEDS: Formoterol/Mometasone 200-5 MCG 8.8 GM Inhaler IH SCH ×2 (06:41→20:21)
[2018-11-16] MEDS: Nicotine 14 MG/24 Hr Patch TRDERM SCH (08:45)
[2018-11-16] MEDS: Aspirin 325 MG Tab.EC PO SCH (08:45)
[2018-11-16] MEDS: Cholecalciferol (Vitamin D3) 1,000 Unit Tab PO SCH (08:46)
[2018-11-16] MEDS: FLUoxetine 20 MG Cap PO SCH (08:46)
[2018-11-16] MEDS: Multivitamin Tab PO SCH (08:46)
[2018-11-16] MEDS: Levofloxacin 250 MG Tab PO SCH (11:26)
--- NOTE | 2018-11-16 11:41 | PN ---
DATE SEEN: 11/16/2018 SUBJECTIVE: Yunior Fierro is a 73-year-old female, seen today for followup. Had a laparotomy for ventral wall incisional hernia. Doing well. Wound on inspection satisfactory. Good bowel sounds. Radiographic evidence of pneumonia, levofloxacin in place. Slow to be up and about activity-rojas. LABORATORY STUDIES: None recent; will obtain CBC and electrolytes. OBJECTIVE: VITAL SIGNS: 36.7, 78, 132/73, 92%. GENERAL: In good spirits. NECK: Benign. Thyroid small. CHEST: Clear in all lung rolle. No adventitious sounds. Coarse rhonchi and diffuse wheezing. Stable. HEART: Distant heart sounds. Occasional ectopy. No significant murmur. ABDOMEN: Incision, periumbilical, vertical, healing well. Verna in place. Minimal redness. ASSESSMENT: 1. Postoperative care ventral hernia, underlying chronic obstructive pulmonary disease. 2. Secondary pneumonia. PLAN: Medications, care and treatment appropriate. CBC and electrolytes for stability. /[id number] JACQUIE/MILAGROS
[2018-11-16] MEDS: traMADol 50 MG Tab PO PRN (12:59)
[2018-11-16] MEDS: Enoxaparin 30 MG/0.3 ML Syringe SUBCUT SCH (18:04)
[2018-11-17] MEDS: Formoterol/Mometasone 200-5 MCG 8.8 GM Inhaler IH SCH ×2 (06:31→20:39)
[2018-11-17] MEDS: Aspirin 325 MG Tab.EC PO SCH (08:57)
[2018-11-17] MEDS: Nicotine 14 MG/24 Hr Patch TRDERM SCH (08:58)
[2018-11-17] MEDS: Multivitamin Tab PO SCH (08:59)
[2018-11-17] MEDS: FLUoxetine 20 MG Cap PO SCH (08:59)
[2018-11-17] MEDS: Cholecalciferol (Vitamin D3) 1,000 Unit Tab PO SCH (09:00)
[2018-11-17] MEDS: Levofloxacin 250 MG Tab PO SCH (12:32)
[2018-11-17] MEDS: Enoxaparin 30 MG/0.3 ML Syringe SUBCUT SCH (18:36)
[2018-11-18] MEDS: Formoterol/Mometasone 200-5 MCG 8.8 GM Inhaler IH SCH ×2 (06:41→21:00)
[2018-11-18] MEDS: Nicotine 14 MG/24 Hr Patch TRDERM SCH (09:57)
[2018-11-18] MEDS: Aspirin 325 MG Tab.EC PO SCH (09:57)
[2018-11-18] MEDS: Cholecalciferol (Vitamin D3) 1,000 Unit Tab PO SCH (09:57)
[2018-11-18] MEDS: Multivitamin Tab PO SCH (09:57)
[2018-11-18] MEDS: FLUoxetine 20 MG Cap PO SCH (09:57)
[2018-11-18] MEDS: Levofloxacin 250 MG Tab PO SCH (11:25)
[2018-11-18] MEDS: traMADol 50 MG Tab PO PRN (16:13)
[2018-11-18] MEDS: Enoxaparin 30 MG/0.3 ML Syringe SUBCUT SCH (18:18)
[2018-11-19] MEDS: Formoterol/Mometasone 200-5 MCG 8.8 GM Inhaler IH SCH ×2 (06:10→21:09)
[2018-11-19] MEDS: Aspirin 325 MG Tab.EC PO SCH (08:30)
[2018-11-19] MEDS: Nicotine 14 MG/24 Hr Patch TRDERM SCH (08:30)
[2018-11-19] MEDS: Cholecalciferol (Vitamin D3) 1,000 Unit Tab PO SCH (08:31)
[2018-11-19] MEDS: FLUoxetine 20 MG Cap PO SCH (08:31)
[2018-11-19] MEDS: Multivitamin Tab PO SCH (08:31)
[2018-11-19] MEDS: Levofloxacin 250 MG Tab PO SCH (11:30)
[2018-11-19] MEDS: Enoxaparin 30 MG/0.3 ML Syringe SUBCUT SCH (17:41)
[2018-11-20] MEDS: Formoterol/Mometasone 200-5 MCG 8.8 GM Inhaler IH SCH ×2 (07:00→20:46)
[2018-11-20] MEDS: FLUoxetine 20 MG Cap PO SCH (08:22)
[2018-11-20] MEDS: Aspirin 325 MG Tab.EC PO SCH (08:22)
[2018-11-20] MEDS: Multivitamin Tab PO SCH (08:23)
[2018-11-20] MEDS: Cholecalciferol (Vitamin D3) 1,000 Unit Tab PO SCH (08:23)
[2018-11-20] MEDS: Nicotine 14 MG/24 Hr Patch TRDERM SCH (08:24)
[2018-11-20] MEDS: Levofloxacin 250 MG Tab PO SCH (11:29)
[2018-11-20] MEDS: Enoxaparin 30 MG/0.3 ML Syringe SUBCUT SCH (18:38)
[2018-11-21] MEDS: traMADol 50 MG Tab PO PRN (04:30)
[2018-11-21] MEDS: Formoterol/Mometasone 200-5 MCG 8.8 GM Inhaler IH SCH (07:32)
[2018-11-21] MEDS: Nicotine 14 MG/24 Hr Patch TRDERM SCH (09:39)
[2018-11-21] MEDS: Aspirin 325 MG Tab.EC PO SCH (09:39)
[2018-11-21] MEDS: FLUoxetine 20 MG Cap PO SCH (09:41)
[2018-11-21] MEDS: Multivitamin Tab PO SCH (09:41)
[2018-11-21] MEDS: Cholecalciferol (Vitamin D3) 1,000 Unit Tab PO SCH (09:41)
--- NOTE | 2018-11-21 10:32 | DISCH ---
DISCHARGE DATE: 11/21/2018 REASON FOR ADMISSION: 1. Weakness. 2. Status post ventral hernia repair. 3. Hypertension. 4. Chronic obstructive pulmonary disease. 5. History of lung cancer, on treatment. BRIEF HISTORY AND HOSPITAL COURSE: This is a 73-year-old female who was admitted on the after she was discharged from [place]. She had open repair of a recurrent incisional hernia. She was brought for strengthening. She has a history of tobacco abuse, lung cancer, chronic obstructive pulmonary disease, and hypertension. She also has a history of depression and anxiety. She did well and was ready to go home today, the . DISCHARGE MEDICATIONS: She will be discharged home on: 1. Acetaminophen. 2. Seroquel 50 mg. 3. Prozac 40 mg. 4. MiraLax p.r.n. FOLLOWUP: She will see her surgeon as previously scheduled and PCP, Dr. Deshpande next week. I spent more than 35 minutes in the discharge of the patient. /[id number] NAKUL/MILAGROS
[2018-11-21] MEDS: Levofloxacin 250 MG Tab PO SCH (11:41)
== END 2018-11-21 16:36 | disposition home or self-care (01) | DRG 948 ==
LOC: FB.MS 15:08 → UNDOADMIN 15:11 → FB.MS 15:11
PROVIDERS: ADMIT Family Medicine; ATTEND Family Medicine
DX: R53.1 Weakness (principal); C34.92 Malignant neoplasm of unspecified part of left bronchus or lung; Z98.890 Other specified postprocedural states; F17.210 Nicotine dependence, cigarettes, uncomplicated; J44.9 Chronic obstructive pulmonary disease, unspecified; Z72.89 Other problems related to lifestyle; F32.9 Major depressive disorder, single episode, unspecified; F41.9 Anxiety disorder, unspecified; Z86.39 Personal history of other endocrine, nutritional and metabolic disease; R91.8 Other nonspecific abnormal finding of lung field; Z90.49 Acquired absence of other specified parts of digestive tract; Z90.710 Acquired absence of both cervix and uterus; Z90.79 Acquired absence of other genital organ(s); Z90.722 Acquired absence of ovaries, bilateral; Z91.048 Other nonmedicinal substance allergy status; Z79.82 Long term (current) use of aspirin; Z91.040 Latex allergy status; Z88.0 Allergy status to penicillin; Z88.2 Allergy status to sulfonamides; Z88.8 Allergy status to other drugs, medicaments and biological substances
CPT/HCPCS: 36415; 71046; 80048; 85027; 93306; 94150; 97110-GO; 97110-GP; 97116-GP; 97161-GP; 97166-GO; 97530-GO; 97530-GP; 97535-GO; A9270-GY; J1650

== ENCOUNTER 2019-01-08 15:46 | Inpatient (IN) | payer MEDICARE, OTHER ==
[2019-01-08] MEDS ORDERED: methylPREDNISolone Sodium Succinate 125 MG/2 ML SDV IVPUSH ONE (16:52)
[2019-01-08] MEDS ORDERED: Albuterol 0.083% 2.5 MG/3 ML Neb Soln NEB ONE (16:52)
[2019-01-08] MEDS: Sodium Chloride 0.9% 10 ML Syringe FLUSH PRN (17:22)
[2019-01-08] MEDS: Sodium Chloride 3% 500 ML IV SCH (18:03)
[2019-01-08] MEDS ORDERED: Iopamidol 755 Mg/ML 75 ML Bottle IV ONE (18:04)
--- NOTE | 2019-01-08 18:37 | EDM.PDOC ---
ED HPI GENERAL MEDICAL PROBLEM - General Chief Complaint: Respiratory Problem Time Seen by Provider: 01/08/19 16:35 Source of Information: Reports: Patient, Family ([id number]) History Limitations: Reports: No Limitations - History of Present Illness INITIAL COMMENTS - FREE TEXT/NARRATIVE: 73-year-old female who reports increased difficulty breathing with cough since Tuesday of last week. She asked he states that she has had trouble breathing and coughing since her discharge from swing bed approximately one month ago with cough phlegm. However, she reports that she has had much worse breathing since Tuesday with increasing cough and now yellow phlegm production. The family has been checking on the patient for the past few days and today the daughter-in- law went to check on the patient and found that she was quite short of breath purple lips and was sweating profusely and appeared to be quite short of breath. She also seemed to be somewhat confused. The patient denies any chest pain. She denies any back pain or arm pain. She arrives to us via ambulance with O2 saturations of 80% on room air when the EMS arrived (the patient is not on home O2). She is somewhat slow to respond to answers but does answer appropriately eventually. She's had no nausea or vomiting. She really has not had much of an appetite but she has been drinking liquids. She has used her inhalers without relief. She has been smoking since her discharge from swing bed. She denies any fevers but she has been sweating. There are no other associated signs or symptoms. There are no other modifying factors. Onset: Other (As above) Duration: Getting Worse Location: Reports: Other (No pain) Quality: Reports: Other (No pain) Severity: Severe (Difficulty breathing) Improves with: Reports: None Worsens with: Reports: None Associated Symptoms: Reports: Cough, Diaphoresis, Loss of Appetite, Shortness of Breath, Weakness Treatments BUTTON TUFTER: Reports: Other (see below) (Nothing) - Related Data Allergies Allergy/AdvReac Type Severity Reaction Status Date / Time adhesive Allergy Rash Verified 01/08/19 16:25 Penicillins Allergy Hives Verified 01/08/19 16:25 sulfamethoxazole Allergy Hives Verified 01/08/19 16:25 [From Bactrim] trimethoprim [From Bactrim] Allergy Hives Verified 01/08/19 16:25 Home Meds: Home Meds Aspirin [Ecotrin EC] 325 mg PO DAILY 04/08/14 [History] FLUoxetine [PROzac] 40 mg PO DAILY 04/08/14 [History] Fluticasone/Salmeterol [Advair 250-50] 1 puff PO BID 04/08/14 [History] MV,Ca,Min/Iron Fum/FA/Vit K [Multi For Her Tablet] 1 tab PO DAILY 04/08/14 [ History] QUEtiapine Fumarate [Seroquel] 25 mg PO DAILY@1200 04/08/14 [History] Cholecalciferol (Vitamin D3) [Vitamin D3] 1,000 units PO DAILY 11/06/18 [History ] Acetaminophen [Tylenol] 650 mg PO Q6H PRN 11/13/18 [History] QUEtiapine [SEROquel] 50 mg PO BEDTIME #30 tablet 11/21/18 [Rx] Past Medical History HEENT History: Reports: Cataract, Impaired Vision Cardiovascular History: Reports: Aneurysm (4cm AAA), Blood Clots/VTE/DVT, Syncope Respiratory History: Reports: COPD, Pneumonia, Recurrent Gastrointestinal History: Reports: Bowel Obstruction, Other (See Below) Other Gastrointestinal History: colon surgery with hernia following- hernia to left lower abd repaired with mesh but over time hernia reapeared Musculoskeletal History: Reports: Arthritis, Osteoarthritis Oncologic (Cancer) History: Reports: Lung (Treated with radiation therapy) - Past Surgical History GI Surgical History: Reports: Appendectomy, Cholecystectomy, Colon, Hernia Repair/Other Female Surgical History: Reports: Section Social & Family History - Family History Cardiac: Reports: Heart Failure, Other (See Below) Other Cardiac Family History: her sister of stroke Respiratory: Reports: None Dermatologic: Reports: None Oncologic: Reports: Pancreatic Other Oncologic Family History: pt's father due to pancreatic cancer - Tobacco Use Smoking Status *Q: Current Every Day Smoker Years of Tobacco use: 60 Packs/Tins Daily: 1.5 - Caffeine Use Caffeine Use: Reports: Soda Other Caffeine Use: drinks soda everyday. - Alcohol Use Alcohol Use History: Yes Alcohol Use Frequency: Rarely - Living Situation & Occupation Occupation: Retired Social History Comment: Lives by herself in her own home. ED ROS GENERAL - Review of Systems Review Of Systems: See Below Constitutional: Reports: Malaise, Fatigue, Diaphoresis HEENT: Reports: No Symptoms Respiratory: Reports: Shortness of Breath, Wheezing, Cough, Sputum Cardiovascular: Reports: Dyspnea on Exertion, Lightheadedness GI/Abdominal: Reports: No Symptoms : Reports: No Symptoms Musculoskeletal: Reports: Other (Edema in both legs, questionably worse) Skin: Reports: Diaphoresis Neurological: Reports: Confusion, Dizziness, Weakness Hematologic/Lymphatic: Reports: No Symptoms Immunologic: Reports: No Symptoms ED EXAM, GENERAL - Physical Exam Exam: See Below Exam Limited By: No Limitations General Appearance: Alert, Moderate Distress, Other (Slow to respond) Eye Exam: Bilateral Eye: EOMI, Normal Inspection, PERRL Ears: Normal External Exam Ear Exam: Bilateral Ear: Auricle Normal Nose: Normal Inspection, Normal Mucosa, No Blood Throat/Mouth: Normal Oropharynx, Normal Voice, No Airway Compromise Head: Atraumatic, Normocephalic Neck: Normal Inspection, Supple, Non-Tender, Full Range of Motion Respiratory/Chest: Chest Non-Tender, Respiratory Distress, Crackles, Wheezing, Accessory Muscle Use, Prolonged Expiration Cardiovascular: Normal Peripheral Pulses, Regular Rate, Rhythm, No JVD Peripheral Pulses: 2+: Radial (L), Radial (R), Dorsalis Pedis (L), Dorsalis Pedis (R) GI/Abdominal: Normal Bowel Sounds, Soft, Non-Tender, No Distention Back Exam: Normal Inspection Extremities: Normal Range of Motion, Normal Capillary Refill, Pedal Edema Neurological: Alert, CN II-XII Intact, No Motor/Sensory Deficits, Inattentive, Slow to Respond, Other (But does seem to answer appropriately) Skin Exam: Warm, Dry, Intact, Normal Color, No Rash EKG INTERPRETATION EKG Date: 01/08/19 Time: 16:53 Rhythm: NSR Rate (Beats/Min): 91 [place]: LAD-Left [place] Deviation (Borderline) P-Wave: Present (But with left atrial enlargement) QRS: Normal ST-T: Normal QT: Prolonged Comparison: No Change (No change from 11/06/2018.) Course - Vital Signs Last Recorded V/S: Last Vital Signs Temp 36.2 C 01/08/19 15:50 Pulse 96 01/08/19 15:50 Resp 24 H 01/08/19 15:50 BP 159/89 H 01/08/19 15:50 Pulse Ox 93 L 01/08/19 17:25 - Orders/Labs/Meds Orders: Active Orders 24 hr Category Date Time Status EKG Documentation Completion [RC] ASDIRECTED Care 01/08/19 16:51 Active RT Aerosol Therapy [RC] ASDIRECTED Care 01/08/19 16:53 Active Ang Chest [CT] Stat Exams 01/08/19 17:40 Ordered Chest 1V Frontal [CR] Stat Exams 01/08/19 16:49 Taken CULTURE BLOOD [BC] Urgent Lab 01/08/19 16:00 Received CULTURE BLOOD [BC] Urgent Lab 01/08/19 17:08 Received Levofloxacin/Dextrose 5%-Water [Levaquin in D5W 750 MG/ Med 01/08/19 20:15 Active 150 ML] 750 mg Premix Bag 1 bag IV Q24H Sodium Chloride 0.9% [Saline Flush] Med 01/08/19 16:49 Active 10 ml FLUSH ASDIRECTED PRN Sodium Chloride 3% 500 ml Med 01/08/19 17:45 Active IV ASDIRECTED Blood Culture x2 Reflex Set [OM.PC] Urgent Oth 01/08/19 16:49 Ordered Peripheral IV Insertion Adult [OM.PC] Routine Oth 01/08/19 16:49 Ordered EKG 12 Lead [EK] Routine Ther 01/08/19 16:49 Ordered Medication Orders Acetaminophen (Tylenol) 650 mg PO Q4H PRN PRN Reason: analgesia/fever Albuterol (Proventil Neb Soln) 2.5 mg NEB Q2H PRN PRN Reason: Wheezing/shortness of breath Albuterol/Ipratropium (Duoneb 3.0-0.5 Mg/3 Ml) 3 ml NEB Q4H KULDEEP Enoxaparin Sodium (Lovenox) 70 mg SUBCUT Q12H [facility] Last Admin: 01/08/19 20:43 Dose: 70 mg Sodium Chloride (Sodium Chloride 3%) 500 mls @ 20 mls/hr IV ASDIRECTED [facility] Last Admin: 01/08/19 18:03 Dose: 20 mls/hr Levofloxacin/Dextrose 750 mg/ (Premix) 150 mls @ 100 mls/hr IV Q24H [facility] Last Admin: 01/08/19 20:40 Dose: 100 mls/hr Methylprednisolone Sodium Succinate (Solu-Medrol) 40 mg IVPUSH Q12H [facility] Nicotine (Habitrol) 21 mg TRDERM DAILY KULDEEP Sodium Chloride (Saline Flush) 10 ml FLUSH ASDIRECTED PRN PRN Reason: Keep Vein Open Last Admin: 01/08/19 17:22 Dose: 10 ml Labs: Laboratory Tests 01/08/19 01/08/19 01/08/19 Range/Units 16:00 16:00 16:00 WBC 11.6 (4.5-12.0) X10-3/uL RBC 4.87 (3.23-5.20) x10(6)uL Hgb 14.3 (11.5-15.5) g/dL Hct 42.8 (30.0-51.3) % MCV 87.9 (80-96) fL MCH 29.4 (27.7-33.6) pg MCHC 33.5 (32.2-35.4) g/dL RDW 12.8 (11.5-15.5) % Plt Count 649 H (125-369) X10(3)uL MPV 6.8 L (7.4-10.4) fL Neut % (Auto) 82.3 H (46-82) % Lymph % (Auto) 9.8 L (13-37) % [place] % (Auto) 5.7 (4-12) % Eos % (Auto) 2 (1.0-5.0) % Baso % (Auto) 1 (0-2) % Neut # (Auto) 9.5 H (1.6-8.3) # Lymph # (Auto) 1.1 (0.6-5.0) # [place] # (Auto) 0.7 (0.0-1.3) # Eos # (Auto) 0.2 (0.0-0.8) # Baso # (Auto) 0.1 (0.0-0.2) # POC VBG pH (7.31-7.41) POC VBG pCO2 (41-51) mmHG POC VBG HCO3 (23-28) mmol/L POC VBG Total CO2 (24-29) mmol/L POC VBG Base Excess (-2-3) mmol/L Sodium 117 L* D (135-145) mmol/L Potassium 3.5 (3.5-5.3) mmol/L Chloride 77 L* D (100-110) mmol/L Carbon Dioxide 34 H (21-32) mmol/L BUN 7 (7-18) mg/dL Creatinine 0.7 (0.55-1.02) mg/dL Est Cr Clr Drug Dosing 60.89 mL/min Estimated GFR (MDRD) > 60 (>60) BUN/Creatinine Ratio 10.0 (9-20) Glucose 112 (80-116) mg/dL Calcium 9.4 (8.6-10.2) mg/dL Total Bilirubin 0.7 (0.1-1.3) mg/dL AST 28 H D (5-25) IU/L ALT 27 D (12-36) U/L Alkaline Phosphatase 126 H (56-112) IU/L Troponin I (<0.017-0.056) ng/mL C-Reactive Protein 10.6 H* (0.5-0.9) mg/dL NT-Pro-B Natriuret Pep 1882 H* (<=125) pg/mL Total Protein 7.3 (6.0-8.0) g/dL Albumin 3.3 (3.2-4.6) g/dL Globulin 4.0 g/dL Albumin/Globulin Ratio 0.8 01/08/19 01/08/19 Range/Units 16:00 17:17 WBC (4.5-12.0) X10-3/uL RBC (3.23-5.20) x10(6)uL Hgb (11.5-15.5) g/dL Hct (30.0-51.3) % MCV (80-96) fL MCH (27.7-33.6) pg MCHC (32.2-35.4) g/dL RDW (11.5-15.5) % Plt Count (125-369) X10(3)uL MPV (7.4-10.4) fL Neut % (Auto) (46-82) % Lymph % (Auto) (13-37) % [place] % (Auto) (4-12) % Eos % (Auto) (1.0-5.0) % Baso % (Auto) (0-2) % Neut # (Auto) (1.6-8.3) # Lymph # (Auto) (0.6-5.0) # [place] # (Auto) (0.0-1.3) # Eos # (Auto) (0.0-0.8) # Baso # (Auto) (0.0-0.2) # POC VBG pH 7.41 (7.31-7.41) POC VBG pCO2 54.7 H (41-51) mmHG POC VBG HCO3 34.8 H (23-28) mmol/L POC VBG Total CO2 36 H (24-29) mmol/L POC VBG Base Excess 10 H (-2-3) mmol/L Sodium (135-145) mmol/L Potassium (3.5-5.3) mmol/L Chloride (100-110) mmol/L Carbon Dioxide (21-32) mmol/L BUN (7-18) mg/dL Creatinine (0.55-1.02) mg/dL Est Cr Clr Drug Dosing mL/min Estimated GFR (MDRD) (>60) BUN/Creatinine Ratio (9-20) Glucose (80-116) mg/dL Calcium (8.6-10.2) mg/dL Total Bilirubin (0.1-1.3) mg/dL AST (5-25) IU/L ALT (12-36) U/L Alkaline Phosphatase (56-112) IU/L Troponin I < 0.017 L (<0.017-0.056) ng/mL C-Reactive Protein (0.5-0.9) mg/dL NT-Pro-B Natriuret Pep (<=125) pg/mL Total Protein (6.0-8.0) g/dL Albumin (3.2-4.6) g/dL Globulin g/dL Albumin/Globulin Ratio Meds: Medications Generic Name Dose Route Start Last Admin Trade Name Freq PRN Reason Stop Dose Admin Acetaminophen 650 mg 01/08/19 20:55 Tylenol PO Q4H PRN analgesia/fever Albuterol 2.5 mg 01/08/19 21:00 Proventil Neb Soln NEB Q2H PRN Wheezing/shortness of breath Albuterol/Ipratropium 3 ml 01/08/19 21:00 Duoneb 3.0-0.5 Mg/3 Ml NEB Q4H KULDEEP Enoxaparin Sodium 70 mg 01/08/19 20:15 01/08/19 20:43 Lovenox SUBCUT 70 mg Q12H KULDEEP Administration Sodium Chloride 500 mls @ 20 mls/hr 01/08/19 17:45 01/08/19 18:03 Sodium Chloride 3% IV 20 mls/hr ASDIRECTED KULDEEP Administration Levofloxacin/Dextrose 750 mg/ 150 mls @ 100 mls/hr 01/08/19 20:15 01/08/19 20 :40 Premix IV 100 mls/hr Q24H KULDEEP Administration Methylprednisolone Sodium Succinate 40 mg 01/08/19 21:00 Solu-Medrol IVPUSH Q12H KULDEEP Nicotine 21 mg 01/08/19 21:00 Habitrol TRDERM DAILY KULDEEP Sodium Chloride 10 ml 01/08/19 16:49 01/08/19 17:22 Saline Flush FLUSH 10 ml ASDIRECTED PRN Administration Keep Vein Open Discontinued Medications Generic Name Dose Route Start Last Admin Trade Name Freq PRN Reason Stop Dose Admin Albuterol 5 mg 01/08/19 16:52 01/08/19 17:25 Proventil Neb Soln NEB 01/08/19 16:53 5 mg ONETIME ONE Administration Iopamidol 70 ml 01/08/19 18:04 Isovue-370 (76%) IV 01/08/19 18:05 ONETIME ONE Methylprednisolone Sodium Succinate 125 mg 01/08/19 16:52 01/08/19 17:24 Solu-Medrol IVPUSH 01/08/19 16:53 125 mg ONETIME ONE Administration - Re-Assessments/Exams Free Text/Narrative Re-Assessment/Exam: 01/08/19 17:30: Patient's sodium is 117. She will need 3% sodium and close monitoring. Her O2 saturations are 95-97% on 2 L/m via nasal cannula. Her breathing has improved after the nebulizer treatment. Her mentation has improved. She has remained vitally stable. She does have a history of DVT and PE in the past and I we will order a CT angio of her chest. The patient will need admission for her respiratory failure with hypoxia and her severe hyponatremia. I did discuss CODE STATUS with the patient and she reaffirms that she wants to be a DNR/DNI. She does want all reversible problems treated and is very much desirous of admission to the hospital. The family supports her in this. The patient would want to be admitted here. She will need admission to the intensive care unit for close monitoring and she will need a greater then 2 midnight hospital stay to accomplish her plan of care. I will wait on the results for CT at this point. 01/08/19 19:00: Patient remains vitally stable. Her respiratory status is unchanged. She remains awake and alert. She is comfortable on 2-3 L/m via nasal cannula. Blood cultures 2 have been obtained and I will order Levaquin to cover her suspected pneumonia/COPD exacerbation. We are still awaiting CT scan. 01/08/19 20:00: The CT scan machine is down for at least the night. Therefore, we will be unable to do the patient's CT angio of her chest tonight. I will therefore treat her with Lovenox for possible PE at 1 mg/kg subcutaneous every [address] scan can be performed and PE is either ruled out or ruled in. I discussed this with the patient and with her family and they are in agreement with this plan. They still would want the patient admitted here. I have placed admission orders. The plan will be to recheck her sodium at around midnight tonight with another basic metabolic profile again in the morning. Adjustments in her therapy will be made based on this repeat basic metabolic profile. Dr. Azevedo will assume care of the patient at 7 AM on 01/09/2019. Departure - Departure Time of Disposition: 20:15 Disposition: Admitted As Inpatient 65 Condition: Fair (Guarded) Clinical Impression: Acute hyponatremia, COPD with acute exacerbation, At high risk for pulmonary embolism Respiratory failure with hypoxia Qualifiers: Chronicity: acute Qualified Code(s): J96.01 - Acute respiratory failure with hypoxia - Discharge Information - My Orders Last 24 Hours: My Active Orders 01/08/19 16:00 CULTURE BLOOD [BC] Urgent 01/08/19 16:49 Chest 1V Frontal [CR] Stat Sodium Chloride 0.9% [Saline Flush] 10 ml FLUSH ASDIRECTED PRN Blood Culture x2 Reflex Set [OM.PC] Urgent Peripheral IV Insertion Adult [OM.PC] Routine EKG 12 Lead [EK] Routine 01/08/19 16:51 EKG Documentation Completion [RC] ASDIRECTED 01/08/19 16:53 RT Aerosol Therapy [RC] ASDIRECTED 01/08/19 17:08 CULTURE BLOOD [BC] Urgent 01/08/19 17:40 Ang Chest [CT] Stat 01/08/19 17:45 Sodium Chloride 3% 500 ml IV ASDIRECTED 01/08/19 20:15 Levofloxacin/Dextrose 5%-Water [Levaquin in D5W 750 MG/150 ML] 750 mg Premix Bag 1 bag IV Q24H - Assessment/Plan Last 24 Hours: My Active Orders 01/08/19 16:00 CULTURE BLOOD [BC] Urgent 01/08/19 16:49 Chest 1V Frontal [CR] Stat Sodium Chloride 0.9% [Saline Flush] 10 ml FLUSH ASDIRECTED PRN Blood Culture x2 Reflex Set [OM.PC] Urgent Peripheral IV Insertion Adult [OM.PC] Routine EKG 12 Lead [EK] Routine 01/08/19 16:51 EKG Documentation Completion [RC] ASDIRECTED 01/08/19 16:53 RT Aerosol Therapy [RC] ASDIRECTED 01/08/19 17:08 CULTURE BLOOD [BC] Urgent 01/08/19 17:40 Ang Chest [CT] Stat 01/08/19 17:45 Sodium Chloride 3% 500 ml IV ASDIRECTED 01/08/19 20:15 Levofloxacin/Dextrose 5%-Water [Levaquin in D5W 750 MG/150 ML] 750 mg Premix Bag 1 bag IV Q24H
[2019-01-08] MEDS: Levofloxacin/Dextrose 5%-Water 750 MG in Premix Bag 1 BAG IV SCH (20:40)
[2019-01-08] MEDS: Enoxaparin 80 MG/0.8 ML Syringe SUBCUT SCH (20:43)
[2019-01-08] MEDS ORDERED: Acetaminophen 325 MG Tab PO PRN (20:55)
[2019-01-08] MEDS ORDERED: Nicotine 21 MG/24 Hr Patch TRDERM SCH (21:00)
[2019-01-08] MEDS ORDERED: Albuterol 0.083% 2.5 MG/3 ML Neb Soln NEB PRN (21:00)
[2019-01-08] MEDS: Albuterol/Ipratropium 3.0-0.5 MG/3 ML Neb Soln NEB SCH (21:30)
[2019-01-09] MEDS: Albuterol/Ipratropium 3.0-0.5 MG/3 ML Neb Soln NEB SCH ×5 (01:05→17:15)
[2019-01-09] MEDS: methylPREDNISolone Sodium Succinate 40 MG/1 ML SDV IVPUSH SCH ×2 (04:38→17:15)
[2019-01-09] MEDS: Sodium Chloride 0.9% 10 ML Syringe FLUSH PRN ×2 (04:39→04:40)
--- NOTE | 2019-01-09 08:09 | PCM.HP ---
<Laurel Garibay - Last Filed: 01/09/19 08:03> H&P History of Present Illness - General Date of Service: 01/09/19 Admit Problem/Dx: 73 year female admitted to the hospital for hypoxia and hyponatremia. She reports feeling short of breath since her release from swing bed about one month ago (she has been in swing bed due to weakness post hernia repair). Her shortness of breath worsened Tuesday01/05/19, at which time her family decided they could leave her at home, but check in on her more frequently. Yesterday, her daughter in law noticed the patient was having increased shortness of breath , a cough productive for yellow phlegm, and had purple lips so she called EMS. Upon arrival to ED her oxygen saturations were 80% on room air. The patient's initial lab work while in the ED showed hyponatremia, and respiratory acidosis that was compensated metabolically. She did smoke 1-1.5 packs of cigarettes daily, but reports she quit yesterday, . The patient does live alone in a home. She is normally able to do her own ADLs. She does not normally use supplemental oxygen. She does wish to be DNR /DNI. Source of Information: Patient, Family, Old Records History Limitations: Reports: No Limitations - History of Present Illness Onset of Symptoms: Reports: Gradual - Related Data Allergies/Adverse Reactions: Allergies Allergy/AdvReac Type Severity Reaction Status Date / Time adhesive Allergy Rash Verified 01/08/19 16:25 Penicillins Allergy Hives Verified 01/08/19 16:25 sulfamethoxazole Allergy Hives Verified 01/08/19 16:25 [From Bactrim] trimethoprim [From Bactrim] Allergy Hives Verified 01/08/19 16:25 Home Medications: Home Meds Aspirin [Ecotrin EC] 325 mg PO DAILY 04/08/14 [History] FLUoxetine [PROzac] 40 mg PO DAILY 04/08/14 [History] Fluticasone/Salmeterol [Advair 250-50] 1 puff PO BID 04/08/14 [History] MV,Ca,Min/Iron Fum/FA/Vit K [Multi For Her Tablet] 1 tab PO DAILY 04/08/14 [ History] QUEtiapine Fumarate [Seroquel] 25 mg PO DAILY@1200 04/08/14 [History] Cholecalciferol (Vitamin D3) [Vitamin D3] 1,000 units PO DAILY 11/06/18 [History ] Acetaminophen [Tylenol] 650 mg PO Q6H PRN 11/13/18 [History] QUEtiapine [SEROquel] 50 mg PO BEDTIME #30 tablet 11/21/18 [Rx] Past Medical History HEENT History: Reports: Cataract, Impaired Vision Cardiovascular History: Reports: Aneurysm (4cm AAA), Blood Clots/VTE/DVT, Syncope Other Cardiovascular History: 4cm aortic aneurysm Respiratory History: Reports: COPD, Pneumonia, Recurrent Other Respiratory History: pt undergone radiation therapy on for her lungs before. Gastrointestinal History: Reports: Bowel Obstruction, Other (See Below) Other Gastrointestinal History: colon surgery with hernia following- hernia to left lower abd repaired with mesh but over time hernia reapeared [employer] History: Reports: Other OB/BYN History: past c-sections Musculoskeletal History: Reports: Arthritis, Osteoarthritis Other Psychiatric History: verbalizes some depression at times Oncologic (Cancer) History: Reports: Lung (Treated with radiation therapy) - Past Surgical History GI Surgical History: Reports: Appendectomy, Cholecystectomy, Colon, Hernia Repair/Other Female Surgical History: Reports: Section Social & Family History - Family History Family Medical History: Noncontributory Cardiac: Reports: Heart Failure, Other (See Below) Other Cardiac Family History: her sister of stroke Respiratory: Reports: None Dermatologic: Reports: None Oncologic: Reports: Pancreatic Other Oncologic Family History: pt's father due to pancreatic cancer - Tobacco Use Smoking Status *Q: Current Every Day Smoker Years of Tobacco use: 60 Packs/Tins Daily: 1.5 - Caffeine Use Caffeine Use: Reports: Soda Other Caffeine Use: drinks soda everyday. - Recreational Drug Use Recreational Drug Use: No - Living Situation & Occupation Occupation: Retired H&P Review of Systems - Review of Systems: Review Of Systems: See Below General: Reports: Fatigue. Denies: Fever, Chills HEENT: Reports: Headaches (frontal, intermittent ) Pulmonary: Reports: Shortness of Breath, Cough Cardiovascular: Denies: Chest Pain, Palpitations Gastrointestinal: Reports: Diarrhea. Denies: Abdominal Pain, Constipation, Nausea, Vomiting Genitourinary: Denies: Dysuria, Burning, Hematuria Musculoskeletal: Reports: No Symptoms Skin: Reports: No Symptoms Psychiatric: Reports: Confusion (this has improved from admission) Neurological: Reports: Confusion Exam - Exam Exam: See Below - Vital Signs Vital Signs: Last Vital Signs Temp 36.3 C 01/09/19 03:15 Pulse 96 01/09/19 07:00 Resp 21 H 01/09/19 07:00 BP 173/81 H 01/09/19 07:00 Pulse Ox 93 L 01/09/19 07:00 Weight: 156 lb 6 oz - Exam Quality Assessment: Supplemental Oxygen General: Alert, Oriented HEENT: EOMI, TMs Clear Neck: Supple, Trachea Midline Lungs: Wheezing (throughout) Cardiovascular: Regular Rate, Regular Rhythm GI/Abdominal Exam: Normal Bowel Sounds, Soft, Non-Tender, No Distention, No Mass Back Exam: No: CVA Tenderness (R), CVA Tenderness (L) Extremities: Pedal Edema (1+ pitting to lower extremities bilaterally ) Skin: Warm, Dry Neuro Extensive - Mental Status: Alert, Oriented x3 Psychiatric: Alert, Normal Mood - Patient Data Lab Results Last 24 hrs: Laboratory Results - last 24 hr 01/08/19 01/08/19 01/08/19 Range/Units 16:00 16:00 16:00 WBC 11.6 (4.5-12.0) X10-3/uL RBC 4.87 (3.23-5.20) x10(6)uL Hgb 14.3 (11.5-15.5) g/dL Hct 42.8 (30.0-51.3) % MCV 87.9 (80-96) fL MCH 29.4 (27.7-33.6) pg MCHC 33.5 (32.2-35.4) g/dL RDW 12.8 (11.5-15.5) % Plt Count 649 H (125-369) X10(3)uL MPV 6.8 L (7.4-10.4) fL Neut % (Auto) 82.3 H (46-82) % Lymph % (Auto) 9.8 L (13-37) % [place] % (Auto) 5.7 (4-12) % Eos % (Auto) 2 (1.0-5.0) % Baso % (Auto) 1 (0-2) % Neut # (Auto) 9.5 H (1.6-8.3) # Lymph # (Auto) 1.1 (0.6-5.0) # [place] # (Auto) 0.7 (0.0-1.3) # Eos # (Auto) 0.2 (0.0-0.8) # Baso # (Auto) 0.1 (0.0-0.2) # Add Manual Diff Neutrophils % (Manual) (46-82) % Lymphocytes % (Manual) (13-37) % Monocytes % (Manual) (4-12) % POC VBG pH (7.31-7.41) POC VBG pCO2 (41-51) mmHG POC VBG HCO3 (23-28) mmol/L POC VBG Total CO2 (24-29) mmol/L POC VBG Base Excess (-2-3) mmol/L Sodium 117 L* D (135-145) mmol/L Potassium 3.5 (3.5-5.3) mmol/L Chloride 77 L* D (100-110) mmol/L Carbon Dioxide 34 H (21-32) mmol/L BUN 7 (7-18) mg/dL Creatinine 0.7 (0.55-1.02) mg/dL Est Cr Clr Drug Dosing 60.89 mL/min Estimated GFR (MDRD) > 60 (>60) BUN/Creatinine Ratio 10.0 (9-20) Glucose 112 (80-116) mg/dL Calcium 9.4 (8.6-10.2) mg/dL Total Bilirubin 0.7 (0.1-1.3) mg/dL AST 28 H D (5-25) IU/L ALT 27 D (12-36) U/L Alkaline Phosphatase 126 H (56-112) IU/L Troponin I (<0.017-0.056) ng/mL C-Reactive Protein 10.6 H* (0.5-0.9) mg/dL NT-Pro-B Natriuret Pep 1882 H* (<=125) pg/mL Total Protein 7.3 (6.0-8.0) g/dL Albumin 3.3 (3.2-4.6) g/dL Globulin 4.0 g/dL Albumin/Globulin Ratio 0.8 01/08/19 01/08/19 01/08/19 Range/Units 16:00 17:17 23:58 WBC (4.5-12.0) X10-3/uL RBC (3.23-5.20) x10(6)uL Hgb (11.5-15.5) g/dL Hct (30.0-51.3) % MCV (80-96) fL MCH (27.7-33.6) pg MCHC (32.2-35.4) g/dL RDW (11.5-15.5) % Plt Count (125-369) X10(3)uL MPV (7.4-10.4) fL Neut % (Auto) (46-82) % Lymph % (Auto) (13-37) % [place] % (Auto) (4-12) % Eos % (Auto) (1.0-5.0) % Baso % (Auto) (0-2) % Neut # (Auto) (1.6-8.3) # Lymph # (Auto) (0.6-5.0) # [place] # (Auto) (0.0-1.3) # Eos # (Auto) (0.0-0.8) # Baso # (Auto) (0.0-0.2) # Add Manual Diff Neutrophils % (Manual) (46-82) % Lymphocytes % (Manual) (13-37) % Monocytes % (Manual) (4-12) % POC VBG pH 7.41 (7.31-7.41) POC VBG pCO2 54.7 H (41-51) mmHG POC VBG HCO3 34.8 H (23-28) mmol/L POC VBG Total CO2 36 H (24-29) mmol/L POC VBG Base Excess 10 H (-2-3) mmol/L Sodium 119 L* (135-145) mmol/L Potassium 3.2 L (3.5-5.3) mmol/L Chloride 81 L* (100-110) mmol/L Carbon Dioxide 32 (21-32) mmol/L BUN 8 (7-18) mg/dL Creatinine 0.7 (0.55-1.02) mg/dL Est Cr Clr Drug Dosing 55.77 mL/min Estimated GFR (MDRD) > 60 (>60) BUN/Creatinine Ratio 11.4 (9-20) Glucose 179 H (80-116) mg/dL Calcium 9.0 (8.6-10.2) mg/dL Total Bilirubin (0.1-1.3) mg/dL AST (5-25) IU/L ALT (12-36) U/L Alkaline Phosphatase (56-112) IU/L Troponin I < 0.017 L (<0.017-0.056) ng/mL C-Reactive Protein (0.5-0.9) mg/dL NT-Pro-B Natriuret Pep (<=125) pg/mL Total Protein (6.0-8.0) g/dL Albumin (3.2-4.6) g/dL Globulin g/dL Albumin/Globulin Ratio 01/09/19 01/09/19 Range/Units 06:20 06:20 WBC 6.4 (4.5-12.0) X10-3/uL RBC 4.60 (3.23-5.20) x10(6)uL Hgb 13.2 (11.5-15.5) g/dL Hct 39.1 (30.0-51.3) % MCV 84.8 (80-96) fL MCH 28.7 (27.7-33.6) pg MCHC 33.8 (32.2-35.4) g/dL RDW 12.6 (11.5-15.5) % Plt Count 578 H (125-369) X10(3)uL MPV 6.5 L (7.4-10.4) fL Neut % (Auto) (46-82) % Lymph % (Auto) (13-37) % [place] % (Auto) (4-12) % Eos % (Auto) (1.0-5.0) % Baso % (Auto) (0-2) % Neut # (Auto) (1.6-8.3) # Lymph # (Auto) (0.6-5.0) # [place] # (Auto) (0.0-1.3) # Eos # (Auto) (0.0-0.8) # Baso # (Auto) (0.0-0.2) # Add Manual Diff Yes Neutrophils % (Manual) 90 H (46-82) % Lymphocytes % (Manual) 8 L (13-37) % Monocytes % (Manual) 2 L (4-12) % POC VBG pH (7.31-7.41) POC VBG pCO2 (41-51) mmHG POC VBG HCO3 (23-28) mmol/L POC VBG Total CO2 (24-29) mmol/L POC VBG Base Excess (-2-3) mmol/L Sodium 119 L* (135-145) mmol/L Potassium 3.4 L (3.5-5.3) mmol/L Chloride 81 L* (100-110) mmol/L Carbon Dioxide 32 (21-32) mmol/L BUN 8 (7-18) mg/dL Creatinine 0.6 (0.55-1.02) mg/dL Est Cr Clr Drug Dosing 65.06 mL/min Estimated GFR (MDRD) > 60 (>60) BUN/Creatinine Ratio 13.3 (9-20) Glucose 130 H (80-116) mg/dL Calcium 8.7 (8.6-10.2) mg/dL Total Bilirubin (0.1-1.3) mg/dL AST (5-25) IU/L ALT (12-36) U/L Alkaline Phosphatase (56-112) IU/L Troponin I (<0.017-0.056) ng/mL C-Reactive Protein (0.5-0.9) mg/dL NT-Pro-B Natriuret Pep (<=125) pg/mL Total Protein (6.0-8.0) g/dL Albumin (3.2-4.6) g/dL Globulin g/dL Albumin/Globulin Ratio Result Diagrams: 01/09/19 06:20 01/09/19 06:20 - Problem List (1) Palliative care patient SNOMED Code(s): 198674298 ICD Code: Z51.5 - ENCOUNTER FOR PALLIATIVE CARE Status: Acute Current Visit: Yes (2) Acute hyponatremia SNOMED Code(s): 9404304 ICD Code: E87.1 - HYPO-OSMOLALITY AND HYPONATREMIA Status: Acute Current Visit: Yes (3) At high risk for pulmonary embolism SNOMED Code(s): 568305567 ICD Code: Z91.89 - [facility] PERSONAL RISK FACTORS, NOT ELSEWHERE CLASSIFIED Status: Acute Current Visit: Yes (4) COPD with acute exacerbation SNOMED Code(s): 159816055 ICD Code: J44.1 - CHRONIC OBSTRUCTIVE PULMONARY DISEASE W (ACUTE) EXACERBATION Status: Acute Current Visit: Yes (5) Respiratory failure with hypoxia SNOMED Code(s): 29321306253429690 ICD Code: J96.91 - RESPIRATORY FAILURE, UNSPECIFIED WITH HYPOXIA Status: Acute Current Visit: Yes Qualifiers: Chronicity: acute Qualified Code(s): J96.01 - Acute respiratory failure with hypoxia Problem List Initiated/Reviewed/Updated: Yes Orders Last 24hrs: 1. DNR/DNI 2. Up with assistance 3. Regular diet 4. Supplemental oxygen to keep sats between 88-92% 5. Continue with IV saline 3% NA - recheck Sodium this afternoon 6. Continue antibiotic coverage with Levofloxacin 7. D-dimer today 8. Albuterol and duo nebs as needed <Darian Azevedo - Last Filed: 01/09/19 08:44> H&P History of Present Illness - General Admit Problem/Dx: Admission Diagnosis/Problem Admission Diagnosis/Problem Hyponatremia Exam - Vital Signs Vital Signs: Last Vital Signs Temp 97.4 F 01/09/19 03:15 Pulse 96 01/09/19 07:00 Resp 21 H 01/09/19 07:00 BP 173/81 H 01/09/19 07:00 Pulse Ox 93 L 01/09/19 07:00 - Patient Data Lab Results Last 24 hrs: Laboratory Results - last 24 hr 01/08/19 01/08/19 01/08/19 Range/Units 16:00 16:00 16:00 WBC 11.6 (4.5-12.0) X10-3/uL RBC 4.87 (3.23-5.20) x10(6)uL Hgb 14.3 (11.5-15.5) g/dL Hct 42.8 (30.0-51.3) % MCV 87.9 (80-96) fL MCH 29.4 (27.7-33.6) pg MCHC 33.5 (32.2-35.4) g/dL RDW 12.8 (11.5-15.5) % Plt Count 649 H (125-369) X10(3)uL MPV 6.8 L (7.4-10.4) fL Neut % (Auto) 82.3 H (46-82) % Lymph % (Auto) 9.8 L (13-37) % [place] % (Auto) 5.7 (4-12) % Eos % (Auto) 2 (1.0-5.0) % Baso % (Auto) 1 (0-2) % Neut # (Auto) 9.5 H (1.6-8.3) # Lymph # (Auto) 1.1 (0.6-5.0) # [place] # (Auto) 0.7 (0.0-1.3) # Eos # (Auto) 0.2 (0.0-0.8) # Baso # (Auto) 0.1 (0.0-0.2) # Add Manual Diff Neutrophils % (Manual) (46-82) % Lymphocytes % (Manual) (13-37) % Monocytes % (Manual) (4-12) % POC VBG pH (7.31-7.41) POC VBG pCO2 (41-51) mmHG POC VBG HCO3 (23-28) mmol/L POC VBG Total CO2 (24-29) mmol/L POC VBG Base Excess (-2-3) mmol/L Sodium 117 L* D (135-145) mmol/L Potassium 3.5 (3.5-5.3) mmol/L Chloride 77 L* D (100-110) mmol/L Carbon Dioxide 34 H (21-32) mmol/L BUN 7 (7-18) mg/dL Creatinine 0.7 (0.55-1.02) mg/dL Est Cr Clr Drug Dosing 60.89 mL/min Estimated GFR (MDRD) > 60 (>60) BUN/Creatinine Ratio 10.0 (9-20) Glucose 112 (80-116) mg/dL Calcium 9.4 (8.6-10.2) mg/dL Total Bilirubin 0.7 (0.1-1.3) mg/dL AST 28 H D (5-25) IU/L ALT 27 D (12-36) U/L Alkaline Phosphatase 126 H (56-112) IU/L Troponin I (<0.017-0.056) ng/mL C-Reactive Protein 10.6 H* (0.5-0.9) mg/dL NT-Pro-B Natriuret Pep 1882 H* (<=125) pg/mL Total Protein 7.3 (6.0-8.0) g/dL Albumin 3.3 (3.2-4.6) g/dL Globulin 4.0 g/dL Albumin/Globulin Ratio 0.8 01/08/19 01/08/19 01/08/19 Range/Units 16:00 17:17 23:58 WBC (4.5-12.0) X10-3/uL RBC (3.23-5.20) x10(6)uL Hgb (11.5-15.5) g/dL Hct (30.0-51.3) % MCV (80-96) fL MCH (27.7-33.6) pg MCHC (32.2-35.4) g/dL RDW (11.5-15.5) % Plt Count (125-369) X10(3)uL MPV (7.4-10.4) fL Neut % (Auto) (46-82) % Lymph % (Auto) (13-37) % [place] % (Auto) (4-12) % Eos % (Auto) (1.0-5.0) % Baso % (Auto) (0-2) % Neut # (Auto) (1.6-8.3) # Lymph # (Auto) (0.6-5.0) # [place] # (Auto) (0.0-1.3) # Eos # (Auto) (0.0-0.8) # Baso # (Auto) (0.0-0.2) # Add Manual Diff Neutrophils % (Manual) (46-82) % Lymphocytes % (Manual) (13-37) % Monocytes % (Manual) (4-12) % POC VBG pH 7.41 (7.31-7.41) POC VBG pCO2 54.7 H (41-51) mmHG POC VBG HCO3 34.8 H (23-28) mmol/L POC VBG Total CO2 36 H (24-29) mmol/L POC VBG Base Excess 10 H (-2-3) mmol/L Sodium 119 L* (135-145) mmol/L Potassium 3.2 L (3.5-5.3) mmol/L Chloride 81 L* (100-110) mmol/L Carbon Dioxide 32 (21-32) mmol/L BUN 8 (7-18) mg/dL Creatinine 0.7 (0.55-1.02) mg/dL Est Cr Clr Drug Dosing 55.77 mL/min Estimated GFR (MDRD) > 60 (>60) BUN/Creatinine Ratio 11.4 (9-20) Glucose 179 H (80-116) mg/dL Calcium 9.0 (8.6-10.2) mg/dL Total Bilirubin (0.1-1.3) mg/dL AST (5-25) IU/L ALT (12-36) U/L Alkaline Phosphatase (56-112) IU/L Troponin I < 0.017 L (<0.017-0.056) ng/mL C-Reactive Protein (0.5-0.9) mg/dL NT-Pro-B Natriuret Pep (<=125) pg/mL Total Protein (6.0-8.0) g/dL Albumin (3.2-4.6) g/dL Globulin g/dL Albumin/Globulin Ratio 01/09/19 01/09/19 Range/Units 06:20 06:20 WBC 6.4 (4.5-12.0) X10-3/uL RBC 4.60 (3.23-5.20) x10(6)uL Hgb 13.2 (11.5-15.5) g/dL Hct 39.1 (30.0-51.3) % MCV 84.8 (80-96) fL MCH 28.7 (27.7-33.6) pg MCHC 33.8 (32.2-35.4) g/dL RDW 12.6 (11.5-15.5) % Plt Count 578 H (125-369) X10(3)uL MPV 6.5 L (7.4-10.4) fL Neut % (Auto) (46-82) % Lymph % (Auto) (13-37) % [place] % (Auto) (4-12) % Eos % (Auto) (1.0-5.0) % Baso % (Auto) (0-2) % Neut # (Auto) (1.6-8.3) # Lymph # (Auto) (0.6-5.0) # [place] # (Auto) (0.0-1.3) # Eos # (Auto) (0.0-0.8) # Baso # (Auto) (0.0-0.2) # Add Manual Diff Yes Neutrophils % (Manual) 90 H (46-82) % Lymphocytes % (Manual) 8 L (13-37) % Monocytes % (Manual) 2 L (4-12) % POC VBG pH (7.31-7.41) POC VBG pCO2 (41-51) mmHG POC VBG HCO3 (23-28) mmol/L POC VBG Total CO2 (24-29) mmol/L POC VBG Base Excess (-2-3) mmol/L Sodium 119 L* (135-145) mmol/L Potassium 3.4 L (3.5-5.3) mmol/L Chloride 81 L* (100-110) mmol/L Carbon Dioxide 32 (21-32) mmol/L BUN 8 (7-18) mg/dL Creatinine 0.6 (0.55-1.02) mg/dL Est Cr Clr Drug Dosing 65.06 mL/min Estimated GFR (MDRD) > 60 (>60) BUN/Creatinine Ratio 13.3 (9-20) Glucose 130 H (80-116) mg/dL Calcium 8.7 (8.6-10.2) mg/dL Total Bilirubin (0.1-1.3) mg/dL AST (5-25) IU/L ALT (12-36) U/L Alkaline Phosphatase (56-112) IU/L Troponin I (<0.017-0.056) ng/mL C-Reactive Protein (0.5-0.9) mg/dL NT-Pro-B Natriuret Pep (<=125) pg/mL Total Protein (6.0-8.0) g/dL Albumin (3.2-4.6) g/dL Globulin g/dL Albumin/Globulin Ratio Result Diagrams: 01/09/19 06:20 01/09/19 06:20 Orders Last 24hrs: Active Orders 24 hr Category Date Time Status Admission Status [Patient Status] [ADT] Routine ADT 01/08/19 20:13 Active Antiembolic Devices [RC] .Routine Care 01/08/19 20:56 Active Cardiac Monitoring [RC] .As Directed Care 01/08/19 20:13 Active EKG Documentation Completion [RC] ASDIRECTED Care 01/08/19 16:51 Active Height and Weight [RC] DAILY Care 01/08/19 20:55 Active Intake and Output [RC] QSHIFT Care 01/08/19 20:56 Active Oxygen Therapy [RC] CONTINUOUS Care 01/08/19 20:57 Active Pulse Oximetry [RC] CONTINUOUS Care 01/08/19 20:57 Active RT Aerosol Therapy [RC] ASDIRECTED Care 01/08/19 16:53 Active VTE/DVT Education [RC] Click to Edit Care 01/08/19 20:56 Active Vital Signs [RC] Q4HR Care 01/08/19 20:55 Active Regular Diet [DIET] Diet 01/08/19 Dinner Active Ang Chest [CT] Stat Exams 01/08/19 17:40 Ordered Chest 1V Frontal [CR] Stat Exams 01/08/19 16:49 Taken BASIC METABOLIC PANEL,BMP [CHEM] Routine Lab 01/09/19 16:00 Ordered CULTURE BLOOD [BC] Urgent Lab 01/08/19 16:00 Received CULTURE BLOOD [BC] Urgent Lab 01/08/19 17:08 Received DD [D-DIMER QUANTITATIVE] [COAG] Routine Lab 01/09/19 08:39 Ordered Acetaminophen [Tylenol] Med 01/08/19 20:55 Active 650 mg PO Q4H PRN Acetaminophen [Tylenol] Med 01/09/19 08:40 Ordered 650 mg PO Q6H PRN Albuterol [Proventil Neb Soln] Med 01/08/19 21:00 Active 2.5 mg NEB Q2H PRN Albuterol/Ipratropium [DuoNeb 3.0-0.5 MG/3 ML] Med 01/08/19 21:00 Active 3 ml NEB Q4H Aspirin [Ecotrin] Med 01/09/19 09:00 Ordered 325 mg PO DAILY Cholecalciferol (Vitamin D3) [Vitamin D3] Med 01/09/19 09:00 Ordered 1,000 units PO DAILY Enoxaparin [Lovenox] Med 01/08/19 20:15 Active 70 mg SUBCUT Q12H FLUoxetine [PROzac] Med 01/09/19 09:00 Ordered 40 mg PO DAILY Levofloxacin/Dextrose 5%-Water [Levaquin in D5W 750 MG/ Med 01/08/19 20:15 Active 150 ML] 750 mg Premix Bag 1 bag IV Q24H MV,Ca,Min/Iron Fum/FA/Vit K [Multi For Her Tablet] Med 01/09/19 09:00 Ordered 1 tab PO DAILY Nicotine [Habitrol] Med 01/09/19 21:00 Active 21 mg TRDERM BEDTIME QUEtiapine [SEROquel] Med 01/09/19 12:00 Ordered 25 mg PO DAILY@1200 QUEtiapine [SEROquel] Med 01/09/19 21:00 Ordered 50 mg PO BEDTIME Sodium Chloride 0.9% [Saline Flush] Med 01/08/19 16:49 Active 10 ml FLUSH ASDIRECTED PRN Sodium Chloride 3% 500 ml Med 01/08/19 17:45 Active IV ASDIRECTED methylPREDNISolone Sod Succ [Solu-MEDROL] Med 01/09/19 05:00 Active 40 mg IVPUSH Q12H Blood Culture x2 Reflex Set [OM.PC] Urgent Oth 01/08/19 16:49 Ordered DVT/VTE Prophylaxis Reflex [OM.PC] Per Unit Routine Oth 01/08/19 20:55 Ordered Peripheral IV Insertion Adult [OM.PC] Routine Oth 01/08/19 16:49 Ordered Resuscitation Status Routine Resus Stat 01/08/19 20:55 Ordered EKG 12 Lead [EK] Routine Ther 01/08/19 16:49 Ordered Medication Orders Acetaminophen (Tylenol) 650 mg PO Q4H PRN PRN Reason: analgesia/fever Last Admin: 01/09/19 02:22 Dose: 650 mg Acetaminophen (Tylenol) 650 mg PO Q6H PRN PRN Reason: MILD TO MODERATE PAIN Albuterol (Proventil Neb Soln) 2.5 mg NEB Q2H PRN PRN Reason: Wheezing/shortness of breath Albuterol/Ipratropium (Duoneb 3.0-0.5 Mg/3 Ml) 3 ml NEB Q4H [facility] Last Admin: 01/09/19 04:41 Dose: 3 ml Admin: 01/09/19 01:05 Dose: 3 ml Admin: 01/08/19 21:30 Dose: 3 ml Aspirin (Ecotrin) 325 mg PO DAILY [facility] Cholecalciferol (Vitamin D3) 1,000 units PO DAILY [facility] Enoxaparin Sodium (Lovenox) 70 mg SUBCUT Q12H [facility] Last Admin: 01/08/19 20:43 Dose: 70 mg Sodium Chloride (Sodium Chloride 3%) 500 mls @ 42 mls/hr IV ASDIRECTED [facility] Last Admin: 01/08/19 18:03 Dose: 20 mls/hr Levofloxacin/Dextrose 750 mg/ (Premix) 150 mls @ 100 mls/hr IV Q24H [facility] Last Admin: 01/08/19 20:40 Dose: 100 mls/hr Methylprednisolone Sodium Succinate (Solu-Medrol) 40 mg IVPUSH Q12H [facility] Last Admin: 01/09/19 04:38 Dose: 40 mg Nicotine (Habitrol) 21 mg TRDERM BEDTIME [facility] Non-Formulary Medication (Fluoxetine [Prozac]) 40 mg PO DAILY [facility] Non-Formulary Medication (Mv,Ca,Min/Iron Fum/Fa/Vit K [Multi For Her Tablet]) 1 tab PO DAILY [facility] Quetiapine Fumarate (Seroquel) 50 mg PO BEDTIME [facility] Quetiapine Fumarate (Seroquel) 25 mg PO DAILY@1200 [facility] Sodium Chloride (Saline Flush) 10 ml FLUSH ASDIRECTED PRN PRN Reason: Keep Vein Open Last Admin: 01/09/19 04:40 Dose: 10 ml Admin: 01/09/19 04:39 Dose: 10 ml Admin: 01/08/19 17:22 Dose: 10 ml Assessment/Plan Comment:: I attest that I saw this patient, interviewed and examined the patient.
[2019-01-09] MEDS ORDERED: Acetaminophen 325 MG Tab PO PRN ×2 (08:40→22:10)
[2019-01-09] MEDS: Enoxaparin 80 MG/0.8 ML Syringe SUBCUT SCH (08:58)
[2019-01-09] MEDS ORDERED: Cholecalciferol (Vitamin D3) 25 MCG Tab PO SCH (09:00)
[2019-01-09] MEDS ORDERED: Aspirin 325 MG Tab.EC PO SCH (09:00)
[2019-01-09] MEDS ORDERED: FLUoxetine 20 MG Cap PO SCH (09:00)
[2019-01-09] MEDS ORDERED: Multivitamins,Therapeutic Tab PO SCH (09:00)
--- NOTE | 2019-01-09 09:49 | CR ---
INDICATION: Difficulty breathing, cough. CHEST: An AP upright portable view of the chest was obtained 01/08/19 and compared with 11/14/18 and 11/06/18. A linear density seen at the right lung base previously and costophrenic angle blunting on the left and right with probable infiltrate on the left, has resolved compared with the previous study. A definite active infiltrate or effusion was not identified at this time, although minimal patchy pneumonia is difficult to exclude in the left upper lung field, where slightly heavy markings are noted similar to the previous study of 11/14/18. The heart did not appear grossly enlarged but is difficult to evaluate due to the poor inspiration and AP positioning. The aorta is tortuous and calcified in the arch area. Overlying EKG leads are noted. IMPRESSION: 1. No definite acute process but difficult to exclude minimal patchy bronchopneumonia in the left upper lung field. 2. Probable ASHD. MTDD
[2019-01-09] MEDS ORDERED: Iopamidol 755 Mg/ML 75 ML Bottle IV ONE (13:53)
[2019-01-09] MEDS ORDERED: Enoxaparin 30 MG/0.3 ML Syringe SUBCUT SCH (17:30)
--- NOTE | 2019-01-09 17:31 | PCM.SN ---
- Free Text/Narrative Note: CT chest showed no pulmonary embolism. Had some possible either infiltrate or little fluid at the base. We'll transfer her to medical bed and change her Lovenox to 30 units sublingual once a day. The rest the orders will remain the same.
[2019-01-09] MEDS: Sodium Chloride 3% 500 ML IV SCH (18:10)
[2019-01-09] MEDS: Levofloxacin/Dextrose 5%-Water 750 MG in Premix Bag 1 BAG IV SCH (19:53)
[2019-01-09] MEDS: Nicotine 21 MG/24 Hr Patch TRDERM SCH (20:49)
[2019-01-09] MEDS: QUEtiapine 25 MG Tab PO SCH (20:50)
[2019-01-09] MEDS ORDERED: Sodium Chloride 3% 500 ML IV SCH (22:15)
[2019-01-09] MEDS ORDERED: Albuterol/Ipratropium 3.0-0.5 MG/3 ML Neb Soln NEB ONE (22:30)
[2019-01-10] MEDS ORDERED: methylPREDNISolone Sodium Succinate 40 MG/1 ML SDV IVPUSH SCH (05:00)
[2019-01-10] MEDS: Albuterol/Ipratropium 3.0-0.5 MG/3 ML Neb Soln NEB SCH ×5 (05:26→20:59)
[2019-01-10] MEDS: Sodium Chloride 0.9% 10 ML Syringe FLUSH PRN ×3 (05:29→21:00)
[2019-01-10] MEDS ORDERED: Sodium Chloride 0.9% 10 ML Syringe FLUSH PRN (07:58)
--- NOTE | 2019-01-10 08:12 | PCM.PN ---
- General Info Date of Service: 01/10/19 Admission Dx/Problem (Free Text): Patient states she just woke up so she's not sure of his breathing at this time. She says she has a mole. She denies coughing, wheezing, fevers, chills. - Patient Data Vitals - Most Recent: Last Vital Signs Temp 96.4 F 01/10/19 05:20 Pulse 91 01/10/19 05:20 Resp 20 01/10/19 05:20 BP 171/82 H 01/10/19 05:20 Pulse Ox 95 01/10/19 05:20 Weight - Most Recent: 155 lb 2 oz I&O - Last 24 Hours: Intake & Output 01/09/19 01/10/19 01/10/19 22:59 06:59 14:59 Intake Total 549 153 Output Total 300 500 Balance 249 -347 Lab Results Last 24 Hours: Laboratory Results - last 24 hr 01/09/19 01/09/19 01/10/19 Range/Units 06:20 15:58 06:50 WBC 9.8 (4.5-12.0) X10-3/uL RBC 4.60 (3.23-5.20) x10(6)uL Hgb 13.3 (11.5-15.5) g/dL Hct 39.8 (30.0-51.3) % MCV 86.6 (80-96) fL MCH 28.9 (27.7-33.6) pg MCHC 33.4 (32.2-35.4) g/dL RDW 13.3 (11.5-15.5) % Plt Count 521 H (125-369) X10(3)uL MPV 6.3 L (7.4-10.4) fL Neut % (Auto) 83.1 H (46-82) % Lymph % (Auto) 8.2 L (13-37) % [place] % (Auto) 7.5 (4-12) % Eos % (Auto) 0 L (1.0-5.0) % Baso % (Auto) 1 (0-2) % Neut # (Auto) 8.2 (1.6-8.3) # Lymph # (Auto) 0.8 (0.6-5.0) # [place] # (Auto) 0.7 (0.0-1.3) # Eos # (Auto) 0.0 (0.0-0.8) # Baso # (Auto) 0.1 (0.0-0.2) # D-Dimer, Quantitative 1.20 H (0.0-0.59) mg/LFEU Sodium 123 L (135-145) mmol/L Potassium 3.7 (3.5-5.3) mmol/L Chloride 83 L* (100-110) mmol/L Carbon Dioxide 33 H (21-32) mmol/L BUN 10 (7-18) mg/dL Creatinine 0.7 (0.55-1.02) mg/dL Est Cr Clr Drug Dosing 55.77 mL/min Estimated GFR (MDRD) > 60 (>60) BUN/Creatinine Ratio 14.3 (9-20) Glucose 115 (80-116) mg/dL Calcium 9.3 (8.6-10.2) mg/dL Total Bilirubin (0.1-1.3) mg/dL AST (5-25) IU/L ALT (12-36) U/L Alkaline Phosphatase (56-112) IU/L Total Protein (6.0-8.0) g/dL Albumin (3.2-4.6) g/dL Globulin g/dL Albumin/Globulin Ratio //19 Range/Units 06:50 WBC (4.5-12.0) X10-3/uL RBC (3.23-5.20) x10(6)uL Hgb (11.5-15.5) g/dL Hct (30.0-51.3) % MCV (80-96) fL MCH (27.7-33.6) pg MCHC (32.2-35.4) g/dL RDW (11.5-15.5) % Plt Count (125-369) X10(3)uL MPV (7.4-10.4) fL Neut % (Auto) (46-82) % Lymph % (Auto) (13-37) % [place] % (Auto) (4-12) % Eos % (Auto) (1.0-5.0) % Baso % (Auto) (0-2) % Neut # (Auto) (1.6-8.3) # Lymph # (Auto) (0.6-5.0) # [place] # (Auto) (0.0-1.3) # Eos # (Auto) (0.0-0.8) # Baso # (Auto) (0.0-0.2) # D-Dimer, Quantitative (0.0-0.59) mg/LFEU Sodium 131 L (135-145) mmol/L Potassium 3.8 (3.5-5.3) mmol/L Chloride 93 L D (100-110) mmol/L Carbon Dioxide 35 H (21-32) mmol/L BUN 11 (7-18) mg/dL Creatinine 0.7 (0.55-1.02) mg/dL Est Cr Clr Drug Dosing 55.77 mL/min Estimated GFR (MDRD) > 60 (>60) BUN/Creatinine Ratio 15.7 (9-20) Glucose 121 H (80-116) mg/dL Calcium 9.2 (8.6-10.2) mg/dL Total Bilirubin 0.3 (0.1-1.3) mg/dL AST 25 D (5-25) IU/L ALT 26 (12-36) U/L Alkaline Phosphatase 97 (56-112) IU/L Total Protein 6.5 (6.0-8.0) g/dL Albumin 2.9 L (3.2-4.6) g/dL Globulin 3.6 g/dL Albumin/Globulin Ratio 0.8 Ruddy Results Last 24 Hours: Microbiology 01/08/19 17:08 Aerobic Blood Culture - Preliminary Blood - Venous - Lab Draw NO GROWTH AFTER 1 DAY Anaerobic Blood Culture - Preliminary NO GROWTH AFTER 1 DAY 01/08/19 16:00 Aerobic Blood Culture - Preliminary Blood - Venous NO GROWTH AFTER 1 DAY Anaerobic Blood Culture - Preliminary NO GROWTH AFTER 1 DAY Med Orders - Current: Current Medications Acetaminophen (Tylenol) 650 mg PO Q4H PRN PRN Reason: Pain Last Admin: 01/09/19 22:30 Dose: 650 mg Albuterol/Ipratropium (Duoneb 3.0-0.5 Mg/3 Ml) 3 ml NEB QIDRT [facility] Last Admin: 01/10/19 07:57 Dose: Not Given Aspirin (Ecotrin) 325 mg PO DAILY [facility] Azithromycin (Zithromax) 500 mg PO ONETIME ONE Stop: 01/10/19 08:05 Azithromycin (Zithromax) 250 mg PO DAILY [facility] Cholecalciferol (Vitamin D3) 1,000 units PO DAILY [facility] Doxycycline Hyclate (Vibra-Tabs) 100 mg PO BID [facility] Enoxaparin Sodium (Lovenox) 30 mg SUBCUT Q24H [facility] Fluoxetine HCl (Prozac) 40 mg PO DAILY [facility] Multivitamins (Thera) 1 each PO DAILY [facility] Nicotine (Habitrol) 21 mg TRDERM BEDTIME [facility] Last Admin: 01/09/19 20:49 Dose: 21 mg Prednisone (Prednisone) 40 mg PO WITHBREAKFAST [facility] Quetiapine Fumarate (Seroquel) 25 mg PO BEDTIME [facility] Last Admin: 01/09/19 20:50 Dose: 25 mg Sodium Chloride (Saline Flush) 10 ml FLUSH ASDIRECTED PRN PRN Reason: flush Last Admin: 01/10/19 06:53 Dose: 10 ml Sodium Chloride (Saline Flush) 10 ml FLUSH ASDIRECTED PRN PRN Reason: Keep Vein Open Discontinued Medications Acetaminophen (Tylenol) 650 mg PO Q4H PRN PRN Reason: analgesia/fever Last Admin: 01/09/19 02:22 Dose: 650 mg Acetaminophen (Tylenol) 650 mg PO Q6H PRN PRN Reason: MILD TO MODERATE PAIN Albuterol (Proventil Neb Soln) 5 mg NEB ONETIME ONE Stop: 01/08/19 16:53 Last Admin: 01/08/19 17:25 Dose: 5 mg Albuterol (Proventil Neb Soln) 2.5 mg NEB Q2H PRN PRN Reason: Wheezing/shortness of breath Albuterol/Ipratropium (Duoneb 3.0-0.5 Mg/3 Ml) 3 ml NEB Q4H [facility] Last Admin: 01/09/19 17:15 Dose: 3 ml Albuterol/Ipratropium (Duoneb 3.0-0.5 Mg/3 Ml) 3 ml NEB ONETIME ONE Stop: 01/09/19 22:31 Last Admin: 01/09/19 22:30 Dose: 3 ml Aspirin (Ecotrin) 325 mg PO DAILY [facility] Last Admin: 01/09/19 10:25 Dose: 325 mg Cholecalciferol (Vitamin D3) 1,000 units PO DAILY [facility] Last Admin: 01/09/19 10:25 Dose: 1,000 units Enoxaparin Sodium (Lovenox) 70 mg SUBCUT Q12H [facility] Last Admin: 01/09/19 08:58 Dose: 70 mg Enoxaparin Sodium (Lovenox) 30 mg SUBCUT Q24H [facility] Fluoxetine HCl (Prozac) 40 mg PO DAILY [facility] Last Admin: 01/09/19 10:25 Dose: 40 mg Sodium Chloride (Sodium Chloride 3%) 500 mls @ 42 mls/hr IV ASDIRECTED [facility] Last Admin: 01/09/19 18:10 Dose: 20 mls/hr Levofloxacin/Dextrose 750 mg/ (Premix) 150 mls @ 100 mls/hr IV Q24H [facility] Last Admin: 01/09/19 19:53 Dose: 100 mls/hr Sodium Chloride (Sodium Chloride 3%) 500 mls @ 20 mls/hr IV ASDIRECTED [facility] Iopamidol (Isovue-370 (76%)) 70 ml IV ONETIME ONE Stop: 01/08/19 18:05 Last Admin: 01/08/19 21:32 Dose: Not Given Iopamidol (Isovue-370 (76%)) 75 ml IV ASDIRECTED ONE Stop: 01/09/19 13:54 Last Admin: 01/09/19 14:19 Dose: 70 ml Methylprednisolone Sodium Succinate (Solu-Medrol) 125 mg IVPUSH ONETIME ONE Stop: 01/08/19 16:53 Last Admin: 01/08/19 17:24 Dose: 125 mg Methylprednisolone Sodium Succinate (Solu-Medrol) 40 mg IVPUSH Q12H [facility] Last Admin: 01/09/19 17:15 Dose: 40 mg Methylprednisolone Sodium Succinate (Solu-Medrol) 40 mg IVPUSH Q12H [facility] Last Admin: 01/10/19 05:26 Dose: 40 mg Multivitamins (Thera) 1 each PO DAILY [facility] Last Admin: 01/09/19 10:25 Dose: 1 each Nicotine (Habitrol) 21 mg TRDERM DAILY [facility] Last Admin: 01/08/19 21:33 Dose: 21 mg Quetiapine Fumarate (Seroquel) 50 mg PO BEDTIME [facility] Sodium Chloride (Saline Flush) 10 ml FLUSH ASDIRECTED PRN PRN Reason: Keep Vein Open Last Admin: 01/09/19 04:40 Dose: 10 ml - Exam General: Alert, Oriented, Cooperative Lungs: Clear to Auscultation, Wheezing Cardiovascular: Regular Rate, Regular Rhythm, No Murmurs Extremities: No Pedal Edema - Problem List & Annotations (1) Acute hyponatremia SNOMED Code(s): 3193329 Code(s): E87.1 - HYPO-OSMOLALITY AND HYPONATREMIA Status: Acute Current Visit: Yes (2) COPD with acute exacerbation SNOMED Code(s): 124633572 Code(s): J44.1 - CHRONIC OBSTRUCTIVE PULMONARY DISEASE W (ACUTE) EXACERBATION Status: Acute Current Visit: Yes (3) Palliative care patient SNOMED Code(s): 499177734 Code(s): Z51.5 - ENCOUNTER FOR PALLIATIVE CARE Status: Acute Current Visit: Yes - Problem List Review Problem List Initiated/Reviewed/Updated: Yes - My Orders Last 24 Hours: My Active Orders 01/09/19 21:00 QUEtiapine [SEROquel] 25 mg PO BEDTIME 01/10/19 05:30 Sodium Chloride 0.9% [Saline Flush] 10 ml FLUSH ASDIRECTED PRN 01/10/19 07:58 Sodium Chloride 0.9% [Saline Flush] 10 ml FLUSH ASDIRECTED PRN Saline Lock Insert [OM.PC] Routine 01/10/19 08:00 predniSONE 40 mg PO WITHBREAKFAST 01/10/19 08:04 Azithromycin [Zithromax] 500 mg PO ONETIME ONE 01/10/19 08:05 Consult to Occupational Therapy [OT Evaluation and Treatment] [CONS] Routine Consult to Physical Therapy [PT Evaluation and Treatment] [CONS] Routine 01/10/19 09:00 Doxycycline [Vibra-Tabs] 100 mg PO BID 01/10/19 17:30 Enoxaparin [Lovenox] 30 mg SUBCUT Q24H 01/11/19 09:00 Azithromycin [Zithromax] 250 mg PO DAILY - Plan Plan:: 1. Sodium is much improved so stop IV fluids and saline lock IV. 2. DC Solu-Medrol and start prednisone 40 mg a day. 5. CT did not show any pulmonary embolus. It had nothing in the bases that could be infiltrate or just a little fluid. I will start doxycycline and Zithromax today just to cover. 4. Evaluate for home O2. 5. PT/OT. 6. Keep O2 between 88-92% cannula. 7. BMP in the a.m.
[2019-01-10] MEDS: Azithromycin 500 MG Tab PO ONE ×3 (08:54→08:59)
[2019-01-10] MEDS: Aspirin 325 MG Tab.EC PO SCH (08:54)
[2019-01-10] MEDS: predniSONE 20 MG Tab PO SCH (08:55)
[2019-01-10] MEDS: Doxycycline 100 MG Tab PO SCH ×2 (08:55→20:58)
[2019-01-10] MEDS: FLUoxetine 20 MG Cap PO SCH (08:57)
[2019-01-10] MEDS: Cholecalciferol (Vitamin D3) 25 MCG Tab PO SCH (08:57)
[2019-01-10] MEDS ORDERED: Multivitamins,Therapeutic Tab PO SCH (09:00)
[2019-01-10] MEDS: Enoxaparin 40 MG/0.4 ML Syringe SUBCUT SCH (11:26)
[2019-01-10] MEDS: QUEtiapine 25 MG Tab PO SCH (20:58)
[2019-01-10] MEDS: Nicotine 21 MG/24 Hr Patch TRDERM SCH (20:59)
[2019-01-11] MEDS: Albuterol/Ipratropium 3.0-0.5 MG/3 ML Neb Soln NEB SCH ×4 (06:29→21:18)
--- NOTE | 2019-01-11 08:28 | PCM.PN ---
- General Info Date of Service: 01/11/19 Admission Dx/Problem (Free Text): Patient states she's cough in her phlegm feels a gets to her throat and she can get up. When asked about how she's breathing she doesn't really answer. She says she was able to walk outside her room with the oxygen on yesterday. She denies wheezing all the nurse states she is wheezing. She denies fevers, chills , runny nose or chest pain. She has a sore throat. - Patient Data Vitals - Most Recent: Last Vital Signs Temp 97.8 F 01/11/19 04:00 Pulse 94 01/11/19 04:00 Resp 18 01/11/19 04:00 BP 176/86 H 01/11/19 04:00 Pulse Ox 96 01/11/19 06:26 Weight - Most Recent: 155 lb 2 oz I&O - Last 24 Hours: Intake & Output 01/10/19 01/11/19 01/11/19 22:59 06:59 14:59 Intake Total 50 Output Total 300 Balance -250 Lab Results Last 24 Hours: Laboratory Results - last 24 hr 01/11/19 Range/Units 06:26 Sodium 134 L (135-145) mmol/L Potassium 3.5 (3.5-5.3) mmol/L Chloride 94 L (100-110) mmol/L Carbon Dioxide 34 H (21-32) mmol/L BUN 14 (7-18) mg/dL Creatinine 0.7 (0.55-1.02) mg/dL Est Cr Clr Drug Dosing 55.77 mL/min Estimated GFR (MDRD) > 60 (>60) BUN/Creatinine Ratio 20.0 (9-20) Glucose 85 (80-116) mg/dL Calcium 9.2 (8.6-10.2) mg/dL Ruddy Results Last 24 Hours: Microbiology 01/08/19 17:08 Aerobic Blood Culture - Preliminary Blood - Venous - Lab Draw NO GROWTH AFTER 2 DAYS Anaerobic Blood Culture - Preliminary NO GROWTH AFTER 2 DAYS 01/08/19 16:00 Aerobic Blood Culture - Preliminary Blood - Venous NO GROWTH AFTER 2 DAYS Anaerobic Blood Culture - Preliminary NO GROWTH AFTER 2 DAYS Med Orders - Current: Current Medications Acetaminophen (Tylenol) 650 mg PO Q4H PRN PRN Reason: Pain Last Admin: 01/09/19 22:30 Dose: 650 mg Albuterol/Ipratropium (Duoneb 3.0-0.5 Mg/3 Ml) 3 ml NEB QIDRT [facility] Last Admin: 01/11/19 06:29 Dose: 3 ml Aspirin (Ecotrin) 325 mg PO DAILY [facility] Last Admin: 01/10/19 08:54 Dose: 325 mg Cholecalciferol (Vitamin D3) 1,000 units PO DAILY [facility] Last Admin: 01/10/19 08:57 Dose: 1,000 units Enoxaparin Sodium (Lovenox) 40 mg SUBCUT DAILY [facility] Last Admin: 01/10/19 11:26 Dose: 40 mg Fluoxetine HCl (Prozac) 40 mg PO DAILY [facility] Last Admin: 01/10/19 08:57 Dose: 40 mg Multivitamins (Thera) 1 each PO DAILY [facility] Nicotine (Habitrol) 21 mg TRDERM BEDTIME [facility] Last Admin: 01/10/19 20:59 Dose: 21 mg Quetiapine Fumarate (Seroquel) 25 mg PO BEDTIME [facility] Last Admin: 01/10/19 20:58 Dose: 25 mg Sodium Chloride (Saline Flush) 10 ml FLUSH ASDIRECTED PRN PRN Reason: flush Last Admin: 01/10/19 21:00 Dose: 10 ml Discontinued Medications Acetaminophen (Tylenol) 650 mg PO Q4H PRN PRN Reason: analgesia/fever Last Admin: 01/09/19 02:22 Dose: 650 mg Acetaminophen (Tylenol) 650 mg PO Q6H PRN PRN Reason: MILD TO MODERATE PAIN Albuterol (Proventil Neb Soln) 5 mg NEB ONETIME ONE Stop: 01/08/19 16:53 Last Admin: 01/08/19 17:25 Dose: 5 mg Albuterol (Proventil Neb Soln) 2.5 mg NEB Q2H PRN PRN Reason: Wheezing/shortness of breath Albuterol/Ipratropium (Duoneb 3.0-0.5 Mg/3 Ml) 3 ml NEB Q4H [facility] Last Admin: 01/09/19 17:15 Dose: 3 ml Albuterol/Ipratropium (Duoneb 3.0-0.5 Mg/3 Ml) 3 ml NEB ONETIME ONE Stop: 01/09/19 22:31 Last Admin: 01/09/19 22:30 Dose: 3 ml Aspirin (Ecotrin) 325 mg PO DAILY [facility] Last Admin: 01/09/19 10:25 Dose: 325 mg Azithromycin (Zithromax) 500 mg PO ONETIME ONE Stop: 01/10/19 08:05 Last Admin: 01/10/19 08:58 Dose: 500 mg Azithromycin (Zithromax) 250 mg PO DAILY [facility] Cholecalciferol (Vitamin D3) 1,000 units PO DAILY [facility] Last Admin: 01/09/19 10:25 Dose: 1,000 units Doxycycline Hyclate (Vibra-Tabs) 100 mg PO BID [facility] Last Admin: 01/10/19 20:58 Dose: 100 mg Enoxaparin Sodium (Lovenox) 70 mg SUBCUT Q12H [facility] Last Admin: 01/09/19 08:58 Dose: 70 mg Enoxaparin Sodium (Lovenox) 30 mg SUBCUT Q24H [facility] Fluoxetine HCl (Prozac) 40 mg PO DAILY [facility] Last Admin: 01/09/19 10:25 Dose: 40 mg Sodium Chloride (Sodium Chloride 3%) 500 mls @ 42 mls/hr IV ASDIRECTED [facility] Last Admin: 01/09/19 18:10 Dose: 20 mls/hr Levofloxacin/Dextrose 750 mg/ (Premix) 150 mls @ 100 mls/hr IV Q24H [facility] Last Admin: 01/09/19 19:53 Dose: 100 mls/hr Sodium Chloride (Sodium Chloride 3%) 500 mls @ 20 mls/hr IV ASDIRECTED [facility] Iopamidol (Isovue-370 (76%)) 70 ml IV ONETIME ONE Stop: 01/08/19 18:05 Last Admin: 01/08/19 21:32 Dose: Not Given Iopamidol (Isovue-370 (76%)) 75 ml IV ASDIRECTED ONE Stop: 01/09/19 13:54 Last Admin: 01/09/19 14:19 Dose: 70 ml Methylprednisolone Sodium Succinate (Solu-Medrol) 125 mg IVPUSH ONETIME ONE Stop: 01/08/19 16:53 Last Admin: 01/08/19 17:24 Dose: 125 mg Methylprednisolone Sodium Succinate (Solu-Medrol) 40 mg IVPUSH Q12H [facility] Last Admin: 01/09/19 17:15 Dose: 40 mg Methylprednisolone Sodium Succinate (Solu-Medrol) 40 mg IVPUSH Q12H [facility] Last Admin: 01/10/19 05:26 Dose: 40 mg Multivitamins (Thera) 1 each PO DAILY [facility] Last Admin: 01/09/19 10:25 Dose: 1 each Nicotine (Habitrol) 21 mg TRDERM DAILY [facility] Last Admin: 01/08/19 21:33 Dose: 21 mg Prednisone (Prednisone) 40 mg PO WITHBREAKFAST [facility] Last Admin: 01/10/19 08:55 Dose: 40 mg Quetiapine Fumarate (Seroquel) 50 mg PO BEDTIME [facility] Sodium Chloride (Saline Flush) 10 ml FLUSH ASDIRECTED PRN PRN Reason: Keep Vein Open Last Admin: 01/09/19 04:40 Dose: 10 ml - Exam General: Alert, Oriented, Cooperative HEENT: Mucous Membr. Moist/[place] Lungs: Normal Respiratory Effort, Wheezing Cardiovascular: Regular Rate, Regular Rhythm, No Murmurs Extremities: No Pedal Edema - Problem List & Annotations (1) Acute hyponatremia SNOMED Code(s): 2101468 Code(s): E87.1 - HYPO-OSMOLALITY AND HYPONATREMIA Status: Acute Current Visit: Yes (2) COPD with acute exacerbation SNOMED Code(s): 955895968 Code(s): J44.1 - CHRONIC OBSTRUCTIVE PULMONARY DISEASE W (ACUTE) EXACERBATION Status: Acute Current Visit: Yes (3) Palliative care patient SNOMED Code(s): 096971751 Code(s): Z51.5 - ENCOUNTER FOR PALLIATIVE CARE Status: Acute Current Visit: Yes (4) Pneumonia SNOMED Code(s): 782960660 Code(s): J18.9 - PNEUMONIA, UNSPECIFIED ORGANISM Status: Acute Current Visit: Yes - Problem List Review Problem List Initiated/Reviewed/Updated: Yes - My Orders Last 24 Hours: My Active Orders 01/10/19 07:58 Saline Lock Insert [OM.PC] Routine 01/10/19 08:05 Consult to Occupational Therapy [OT Evaluation and Treatment] [CONS] Routine Consult to Physical Therapy [PT Evaluation and Treatment] [CONS] Routine 01/10/19 10:00 Enoxaparin [Lovenox] 40 mg SUBCUT DAILY 01/11/19 08:30 levoFLOXacin [Levaquin] 500 mg PO Q24H predniSONE 60 mg PO WITHBREAKFAST 06/27/19 Lunch Regular Diet [DIET] - Plan Plan:: 1. Stop the low sodium diet because she is on a treatment and start a regular diet. 2. Increase prednisone 60 mg by mouth a day. 3. DC Zithromax/doxycycline and start Levaquin 500 mg a day. 4. Up in chair and ambulation frequently.
[2019-01-11] MEDS ORDERED: Azithromycin 250 MG Tab PO SCH (09:00)
[2019-01-11] MEDS: predniSONE 20 MG Tab PO SCH ×2 (09:12)
[2019-01-11] MEDS: Levofloxacin 750 MG Tab PO SCH (09:12)
[2019-01-11] MEDS: Enoxaparin 40 MG/0.4 ML Syringe SUBCUT SCH (09:13)
[2019-01-11] MEDS: Cholecalciferol (Vitamin D3) 25 MCG Tab PO SCH (09:14)
[2019-01-11] MEDS: FLUoxetine 20 MG Cap PO SCH (09:14)
[2019-01-11] MEDS: Aspirin 325 MG Tab.EC PO SCH (09:14)
[2019-01-11] MEDS ORDERED: Polyethylene Glycol 3350 Powder 17 GM Packet PO PRN (17:53)
[2019-01-11] MEDS: QUEtiapine 25 MG Tab PO SCH (21:16)
[2019-01-11] MEDS: Nicotine 21 MG/24 Hr Patch TRDERM SCH (21:19)
[2019-01-11] MEDS: Sodium Chloride 0.9% 10 ML Syringe FLUSH PRN (22:00)
[2019-01-12] MEDS: Albuterol/Ipratropium 3.0-0.5 MG/3 ML Neb Soln NEB SCH ×3 (06:16→16:42)
--- NOTE | 2019-01-12 07:20 | PCM.DCSUM1 ---
Discharge Summary - Hospital Course Free Text/Narrative:: [place] course-patient was admitted and the CT scan was down in the ER doc want to rule out a PE so Lovenox was started at therapeutic dose for treatment of PE. She is put on Solu-Medrol and hypertonic saline at a low rate to correct her severe hyponatremia. Next day her sodium was mildly better. The CAT scan started to work, CT scan showed a little infiltrate either fluid or pneumonia. To start doxycycline and Zithromax. Current O2 nasal cannula and I switched her Solu-Medrol to prednisone 40 mg a day. Patient did well as long she is in oxygen and end up increasing her prednisone to 60 mg by mouth and changing her to Levaquin from the other 2 antibiotics. Agents sodium came up nicely and the hypertonic saline and it was discontinued. Checked her sodium the day after maintained. Patient smoker and she was on nicotine patch for this. She was assessed by PT/OT for swing bed and she did not qualify. Should be discharged on home O2 with [facility], PT/OT. Encouraged her not to smoke her on oxygen. Brief History: 73 year female admitted to the hospital for hypoxia and hyponatremia. She reports feeling short of breath since her release from swing bed about one month ago (she has been in swing bed due to weakness post hernia repair). Her shortness of breath worsened Tuesday01/05/19, at which time her family decided they could leave her at home, but check in on her more frequently. Yesterday, her daughter in law noticed the patient was having increased shortness of breath, a cough productive for yellow phlegm, and had purple lips so she called EMS. Upon arrival to ED her oxygen saturations were 80 % on room air. The patient's initial lab work while in the ED showed hyponatremia, and respiratory acidosis that was compensated metabolically. She did smoke 1-1.5 packs of cigarettes daily, but reports she quit yesterday, . The patient does live alone in a home. She is normally able to do her own ADLs. She does not normally use supplemental oxygen. She does wish to be DNR/ DNI. Diagnosis: Stroke: No - Discharge Data Discharge Date: 01/12/19 Discharge Disposition: Home, Self-Care 01 Condition: Good - Discharge Diagnosis/Problem(s) (1) Acute hyponatremia SNOMED Code(s): 3305594 ICD Code: E87.1 - HYPO-OSMOLALITY AND HYPONATREMIA Status: Acute Current Visit: Yes (2) COPD with acute exacerbation SNOMED Code(s): 127048687 ICD Code: J44.1 - CHRONIC OBSTRUCTIVE PULMONARY DISEASE W (ACUTE) EXACERBATION Status: Acute Current Visit: Yes (3) Palliative care patient SNOMED Code(s): 439553302 ICD Code: Z51.5 - ENCOUNTER FOR PALLIATIVE CARE Status: Acute Current Visit: Yes (4) Pneumonia SNOMED Code(s): 325821528 ICD Code: J18.9 - PNEUMONIA, UNSPECIFIED ORGANISM Status: Acute Current Visit: Yes (5) Smoker SNOMED Code(s): 38496454 ICD Code: F17.200 - NICOTINE DEPENDENCE, UNSPECIFIED, UNCOMPLICATED Status : Acute Current Visit: Yes - Patient Summary/Data Consults: Consultations 01/10/19 08:05 Consult to Occupational Therapy [OT Evaluation and Treatment] [CONS] Routine Please Evaluate and Treat. OT Reason for Consult: Strengthening This query below is only for informational purposes and is not editable. Admission Diagnosis/Problem: Hyponatremia Consult to Physical Therapy [PT Evaluation and Treatment] [CONS] Routine Please Evaluate and Treat. PT Reason for Consult: Strengthening This query below is only for informational purposes and is not editable. Admission Diagnosis/Problem: Hyponatremia - Patient Instructions Diet: Regular Diet as Tolerated Activity: As Tolerated Driving: Do Not Drive Showering/Bathing: May Shower Other/Special Instructions: 1. Recheck with Dr. Deshpande in 1 week. 2. [facility] to supply O2 nasal cannula oxygen saturations between 88-92% area also a nebulizer machine for the patient. 3. Home health/PT/OT for medication management, disease teaching, home safety, strengthening, ADLs. 4. Check of BP at home and called primary if it remains elevated. - Discharge Plan Prescriptions/Med Rec: Albuterol/Ipratropium [DuoNeb 3.0-0.5 MG/3 ML] 3 ml NEB QIDRT PRN #120 neb PRN Reason: Dyspnea levoFLOXacin [Levaquin] 750 mg PO Q24H #7 tablet predniSONE 60 mg PO WITHBREAKFAST #30 tablet Home Medications: Home Meds Aspirin [Ecotrin EC] 325 mg PO DAILY 04/08/14 [History] FLUoxetine [PROzac] 40 mg PO DAILY 04/08/14 [History] Fluticasone/Salmeterol [Advair 250-50] 1 puff PO BID 04/08/14 [History] MV,Ca,Min/Iron Fum/FA/Vit K [Multi For Her Tablet] 1 tab PO DAILY 04/08/14 [ History] QUEtiapine Fumarate [Seroquel] 25 mg PO BEDTIME 04/08/14 [History] Cholecalciferol (Vitamin D3) [Vitamin D3] 1,000 units PO DAILY 11/06/18 [History ] Acetaminophen [Tylenol] 650 mg PO Q6H PRN 11/13/18 [History] Albuterol/Ipratropium [DuoNeb 3.0-0.5 MG/3 ML] 3 ml NEB QIDRT PRN #120 neb 01/12 [Rx] Aspirin [Ecotrin EC] 325 mg PO DAILY tab.ec 01/12/19 [Rx] Cholecalciferol (Vitamin D3) [Vitamin D3] 1,000 units PO DAILY tablet 01/12/19 [Rx] Multivitamins,Therapeutic [Thera] 1 each PO DAILY tablet 01/12/19 [Rx] levoFLOXacin [Levaquin] 750 mg PO Q24H #7 tablet 01/12/19 [Rx] predniSONE 60 mg PO WITHBREAKFAST #30 tablet 01/12/19 [Rx] Patient Handouts: Hypoxia, Hyponatremia, [id number], Chloride Test, Pulmonary Embolism, Antibiotic Medicine, Adult, Fall Prevention in Hospitals, Adult, You've Been Prescribed an Antibiotic in the Hospital for an Infection - CDC (10/2017), Preventing Antibiotic Resistance, Venous Thromboembolism Prevention Forms: ED Department Discharge Referrals: Mika Garcia MD [Primary Care Provider] - - Discharge Summary/Plan Comment DC Time >30 min.: No - Patient Data Vitals - Most Recent: Last Vital Signs Temp 97.9 F 01/12/19 00:00 Pulse 92 01/12/19 00:00 Resp 16 01/12/19 00:00 BP 147/75 H 01/12/19 00:00 Pulse Ox 95 01/12/19 00:00 Weight - Most Recent: 155 lb 2 oz I&O - Last 24 hours: Intake & Output 01/11/19 01/12/19 01/12/19 22:59 06:59 14:59 Output Total 100 900 Balance -100 -900 CRISTIAN Results - Last 24 hrs: Microbiology 01/08/19 16:00 Aerobic Blood Culture - Preliminary Blood - Venous NO GROWTH AFTER 3 DAYS Anaerobic Blood Culture - Preliminary NO GROWTH AFTER 3 DAYS 01/08/19 17:08 Aerobic Blood Culture - Preliminary Blood - Venous - Lab Draw NO GROWTH AFTER 3 DAYS Anaerobic Blood Culture - Preliminary NO GROWTH AFTER 3 DAYS Med Orders - Current: Current Medications Acetaminophen (Tylenol) 650 mg PO Q4H PRN PRN Reason: Pain Last Admin: 01/09/19 22:30 Dose: 650 mg Albuterol/Ipratropium (Duoneb 3.0-0.5 Mg/3 Ml) 3 ml NEB QIDRT [facility] Last Admin: 01/12/19 06:16 Dose: 3 ml Aspirin (Ecotrin) 325 mg PO DAILY [facility] Last Admin: 01/11/19 09:14 Dose: 325 mg Cholecalciferol (Vitamin D3) 1,000 units PO DAILY [facility] Last Admin: 01/11/19 09:14 Dose: 1,000 units Enoxaparin Sodium (Lovenox) 40 mg SUBCUT DAILY [facility] Last Admin: 01/11/19 09:13 Dose: 40 mg Fluoxetine HCl (Prozac) 40 mg PO DAILY [facility] Last Admin: 01/11/19 09:14 Dose: 40 mg Levofloxacin (Levaquin) 750 mg PO Q24H [facility] Last Admin: 01/11/19 09:12 Dose: 750 mg Multivitamins (Thera) 1 each PO DAILY [facility] Nicotine (Habitrol) 21 mg TRDERM BEDTIME [facility] Last Admin: 01/11/19 21:19 Dose: 21 mg Polyethylene Glycol (Miralax) 17 gm PO BEDTIME PRN PRN Reason: Constipation Prednisone (Prednisone) 60 mg PO WITHBREAKFAST [facility] Last Admin: 01/11/19 09:12 Dose: 60 mg Quetiapine Fumarate (Seroquel) 25 mg PO BEDTIME [facility] Last Admin: 01/11/19 21:16 Dose: 25 mg Sodium Chloride (Saline Flush) 10 ml FLUSH ASDIRECTED PRN PRN Reason: flush Last Admin: 01/11/19 22:00 Dose: 10 ml Discontinued Medications Acetaminophen (Tylenol) 650 mg PO Q4H PRN PRN Reason: analgesia/fever Last Admin: 01/09/19 02:22 Dose: 650 mg Acetaminophen (Tylenol) 650 mg PO Q6H PRN PRN Reason: MILD TO MODERATE PAIN Albuterol (Proventil Neb Soln) 5 mg NEB ONETIME ONE Stop: 01/08/19 16:53 Last Admin: 01/08/19 17:25 Dose: 5 mg Albuterol (Proventil Neb Soln) 2.5 mg NEB Q2H PRN PRN Reason: Wheezing/shortness of breath Albuterol/Ipratropium (Duoneb 3.0-0.5 Mg/3 Ml) 3 ml NEB Q4H [facility] Last Admin: 01/09/19 17:15 Dose: 3 ml Albuterol/Ipratropium (Duoneb 3.0-0.5 Mg/3 Ml) 3 ml NEB ONETIME ONE Stop: 01/09/19 22:31 Last Admin: 01/09/19 22:30 Dose: 3 ml Aspirin (Ecotrin) 325 mg PO DAILY [facility] Last Admin: 01/09/19 10:25 Dose: 325 mg Azithromycin (Zithromax) 500 mg PO ONETIME ONE Stop: 01/10/19 08:05 Last Admin: 01/10/19 08:58 Dose: 500 mg Azithromycin (Zithromax) 250 mg PO DAILY [facility] Cholecalciferol (Vitamin D3) 1,000 units PO DAILY [facility] Last Admin: 01/09/19 10:25 Dose: 1,000 units Doxycycline Hyclate (Vibra-Tabs) 100 mg PO BID [facility] Last Admin: 01/10/19 20:58 Dose: 100 mg Enoxaparin Sodium (Lovenox) 70 mg SUBCUT Q12H [facility] Last Admin: 01/09/19 08:58 Dose: 70 mg Enoxaparin Sodium (Lovenox) 30 mg SUBCUT Q24H [facility] Fluoxetine HCl (Prozac) 40 mg PO DAILY [facility] Last Admin: 01/09/19 10:25 Dose: 40 mg Sodium Chloride (Sodium Chloride 3%) 500 mls @ 42 mls/hr IV ASDIRECTED [facility] Last Admin: 01/09/19 18:10 Dose: 20 mls/hr Levofloxacin/Dextrose 750 mg/ (Premix) 150 mls @ 100 mls/hr IV Q24H [facility] Last Admin: 01/09/19 19:53 Dose: 100 mls/hr Sodium Chloride (Sodium Chloride 3%) 500 mls @ 20 mls/hr IV ASDIRECTED KULDEEP Iopamidol (Isovue-370 (76%)) 70 ml IV ONETIME ONE Stop: 01/08/19 18:05 Last Admin: 01/08/19 21:32 Dose: Not Given Iopamidol (Isovue-370 (76%)) 75 ml IV ASDIRECTED ONE Stop: 01/09/19 13:54 Last Admin: 01/09/19 14:19 Dose: 70 ml Methylprednisolone Sodium Succinate (Solu-Medrol) 125 mg IVPUSH ONETIME ONE Stop: 01/08/19 16:53 Last Admin: 01/08/19 17:24 Dose: 125 mg Methylprednisolone Sodium Succinate (Solu-Medrol) 40 mg IVPUSH Q12H [facility] Last Admin: 01/09/19 17:15 Dose: 40 mg Methylprednisolone Sodium Succinate (Solu-Medrol) 40 mg IVPUSH Q12H [facility] Last Admin: 01/10/19 05:26 Dose: 40 mg Multivitamins (Thera) 1 each PO DAILY [facility] Last Admin: 01/09/19 10:25 Dose: 1 each Nicotine (Habitrol) 21 mg TRDERM DAILY [facility] Last Admin: 01/08/19 21:33 Dose: 21 mg Prednisone (Prednisone) 40 mg PO WITHBREAKFAST [facility] Last Admin: 01/11/19 09:12 Dose: Not Given Quetiapine Fumarate (Seroquel) 50 mg PO BEDTIME [facility] Sodium Chloride (Saline Flush) 10 ml FLUSH ASDIRECTED PRN PRN Reason: Keep Vein Open Last Admin: 01/09/19 04:40 Dose: 10 ml
[2019-01-12] MEDS: Levofloxacin 750 MG Tab PO SCH (08:00)
[2019-01-12] MEDS: predniSONE 20 MG Tab PO SCH (08:00)
[2019-01-12] MEDS: FLUoxetine 20 MG Cap PO SCH (08:00)
[2019-01-12] MEDS: Aspirin 325 MG Tab.EC PO SCH (08:00)
[2019-01-12] MEDS: Enoxaparin 40 MG/0.4 ML Syringe SUBCUT SCH (08:00)
[2019-01-12] MEDS: Cholecalciferol (Vitamin D3) 25 MCG Tab PO SCH (08:00)
[2019-01-12] MEDS ORDERED: Bisacodyl 5 MG Tab PO PRN (08:11)
--- NOTE | 2019-01-12 10:33 | PN ---
DATE SEEN: 01/12/2019 SUBJECTIVE: Angela Fierro is a 73-year-old female, admitted with acute respiratory difficulty, found to have left lower lobe pneumonia. She has completed her antibiotic therapy with good success. Home O2 will be a new addition to her well being. Doing well on prednisone and levofloxacin. Continues to smoke 1-1/2 pack per day, plan is to discontinue upcoming and plan. LABORATORY DATA: Most recent laboratory studies; white count 9800, hemoglobin 13.3, platelets 521. Sodium has improved from 119 to 134. D-dimer of 1.20. Radiographs revealed a left lower lobe pneumonia. OBJECTIVE: VITAL SIGNS: 70 kg, pulse 82, 36.6, 147/75, 99, 95% on 1 L. GENERAL: Appears comfortable. Soft spoken. HEENT: Mouth and oropharynx clear. NECK: Benign. No JVD. Thyroid small. No carotid bruits. CHEST: Decreased breath sounds throughout all lung rolle particularly with left upper lobe. HEART: Occasional ectopy. Soft murmur. Regular rate and rhythm otherwise. ABDOMEN: Benign. A little distended. Good bowel sounds. /RECTAL: Deferred. EXTREMITIES: Well perfused. IMPRESSION: Left upper lobe pneumonia. PLAN: All looks well. Discharge medications on board; levofloxacin 750 mg 5 days duration, prednisone as appropriate, nicotine patch, and opportunities for care accordingly. SURGICAL PROCEDURES: None. CONSULTATIONS: None. /[id number] /MILAGROS
--- NOTE | 2019-01-12 12:28 | DISCH ---
DISCHARGE DATE: 01/12/2019 Angela Fierro is a 73-year-old female, recently hospitalized with complicated respiratory difficulty, pneumonia, and oxygen dependent lifestyle. Testing performed revealed room air saturation of 85%. Room air with exertion 75%, with 1 L returned to 93%. Exertion with oxygen saturation 85% on 2 L. All meet criteria for home oxygen requirements expectation life time. /[id number] JACQUIE/MILAGROS
== END 2019-01-12 17:05 | disposition home or self-care (01) | DRG 640 ==
LOC: FB.ED 15:46 → FB.MS 20:13 → FB.ICU 20:13 → UNDOADMIN 20:13 → FB.ICU 21:04 → FB.MS 01-09 17:29 → FB.ICU 01-09 17:29 → UNDOADMIN 01-09 17:30 → FB.MS 01-09 17:30 → UNDOADMIN 01-09 20:02 → FB.ICU 01-09 20:02 → FB.MS 01-09 20:03 → FB.ICU 01-09 20:03 → UNDODISIN 01-12 17:05
PROVIDERS: ADMIT Family Medicine; ATTEND Family Medicine
DX: E87.1 Hypo-osmolality and hyponatremia (principal); J18.9 Pneumonia, unspecified organism; J96.01 Acute respiratory failure with hypoxia; J44.0 Chronic obstructive pulmonary disease with (acute) lower respiratory infection; R05 Cough; R09.02 Hypoxemia; J44.1 Chronic obstructive pulmonary disease with (acute) exacerbation; Z51.5 Encounter for palliative care; Z66 Do not resuscitate; F17.210 Nicotine dependence, cigarettes, uncomplicated; E87.2 Acidosis; Z91.89 Other specified personal risk factors, not elsewhere classified; Z99.81 Dependence on supplemental oxygen; H54.7 Unspecified visual loss; Z86.718 Personal history of other venous thrombosis and embolism; Z86.711 Personal history of pulmonary embolism; Z87.01 Personal history of pneumonia (recurrent); M19.90 Unspecified osteoarthritis, unspecified site; Z85.118 Personal history of other malignant neoplasm of bronchus and lung; Z92.3 Personal history of irradiation; Z79.82 Long term (current) use of aspirin; Z88.1 Allergy status to other antibiotic agents; Z88.0 Allergy status to penicillin; Z91.048 Other nonmedicinal substance allergy status; Z90.49 Acquired absence of other specified parts of digestive tract
CPT/HCPCS: 36415; 71045; 71275; 80048; 80053; 82803; 83880; 84484; 85025; 85379; 86140; 87040; 93005; 94150; 94640; 96365; 96366; 96372; 96375; 97161-GP; 97165-GO; 97535-GO; 99285-25; A9270-GY; J1650; J1956; J2920; J2930; J7131; J7620-GY; Q9967

== ENCOUNTER 2020-01-25 16:15 | Emergency (ER) | payer MEDICARE, OTHER ==
--- NOTE | 2020-01-25 17:58 | EDM.PDOC ---
<Archie Bazan - Last Filed: 01/25/20 21:00> ED HPI GENERAL MEDICAL PROBLEM - General Chief Complaint: General Stated Complaint: DEHYDRATION Time Seen by Provider: 01/25/20 17:15 - Related Data Allergies Allergy/AdvReac Type Severity Reaction Status Date / Time adhesive Allergy Rash Verified 01/08/19 16:25 Penicillins Allergy Hives Verified 01/08/19 16:25 sulfamethoxazole Allergy Hives Verified 01/08/19 16:25 [From Bactrim] trimethoprim [From Bactrim] Allergy Hives Verified 01/08/19 16:25 Home Meds: Home Meds Aspirin [Ecotrin EC] 325 mg PO DAILY 04/08/14 [History] FLUoxetine [PROzac] 40 mg PO DAILY 04/08/14 [History] Fluticasone/Salmeterol [Advair 250-50] 1 puff PO BID 04/08/14 [History] Mv,Calcium,Min/Iron/Folic/Vitk [Multi For Her Tablet] 1 tab PO DAILY 04/08/14 [History] QUEtiapine Fumarate [Seroquel] 25 mg PO BEDTIME 04/08/14 [History] Cholecalciferol (Vitamin D3) [Vitamin D3] 1,000 units PO DAILY 11/06/18 [History] Acetaminophen [Tylenol] 650 mg PO Q6H PRN 11/13/18 [History] Albuterol/Ipratropium [DuoNeb 3.0-0.5 MG/3 ML] 3 ml NEB QIDRT PRN #120 neb 01/12/19 [Rx] Aspirin [Ecotrin EC] 325 mg PO DAILY tab.ec 01/12/19 [Rx] Cholecalciferol (Vitamin D3) [Vitamin D3] 1,000 units PO DAILY tablet 01/12/19 [Rx] Multivitamins,Therapeutic [Thera] 1 each PO DAILY tablet 01/12/19 [Rx] levoFLOXacin [Levaquin] 750 mg PO Q24H #7 tablet 01/12/19 [Rx] predniSONE 60 mg PO WITHBREAKFAST #30 tablet 01/12/19 [Rx] Course - Re-Assessments/Exams Free Text/Narrative Re-Assessment/Exam: 01/25/20 19:35 hrs: Care turned over to me at the change of shift by Dr. Soto. I have reviewed the patient's record and I interviewed and briefly examined the patient. Patient has received 1 L of normal saline. She is awake, alert and appropriately interactive. She does have the previously noted pauses and difficulty finding words that was mentioned by Dr. Soto but she is conversant and very adamant about wanting to go home. Her blood tests were reviewed from the clinic and we did repeat a urine here that was a catheterized specimen and that specimen did show evidence of dehydration but it was no definite evidence of infection. I did send the urine for culture as it was a catheterized specimen and had some bacteria present but would await for culture results before any treatment. I feel the patient would benefit from another liter of normal saline as Dr. Soto had previously ordered that and I have discussed this with the patient and with the patient's sister and they are agreeable to staying to get the other liter of normal saline given. She is however very adamant about going home after this. The plan will be to give the patient another liter of normal saline and then discharge her home as per her wishes. 01/25/20 21:00: The other liter of normal saline has been infused and the patient is going to the bathroom to urinate now. She is still rather unsteady on her feet but once again she is very adamant about going home. I did discuss with her that I felt admission with further IV fluids and assistance with strengthening might be a reasonable course of action but she refuses this and wishes to be discharged. I have strongly encouraged that she increase her fluid intake and I have told her and the sister that if there are any problems she is certainly welcome and advised to come back to the emergency department for additional cares and further evaluation. Departure - Departure Time of Disposition: 21:05 Disposition: Home, Self-Care 01 Condition: Good Clinical Impression: Dehydration, moderate, Organic brain syndrome, Metastatic cancer to brain - Discharge Information Instructions: Dehydration, Adult, [id number], Rehydration, Adult Referrals: PCP,Not In Area [Primary Care Provider] - Forms: ED Department Discharge Additional Instructions: You are dehydrated. We have corrected this somewhat with the IV fluids. You should increase your fluid intake. I recommended that you be admitted to the hospital for further IV fluids and for assistance with strengthening but you wish to go home. Follow-up with your primary provider. Back to the emergency department for vomiting, poor fluid intake, worsening weakness or any other concerning sign or symptom. 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, got chemo which was completed 3m ago, then had RT to the brain which was completed 1m ago her heme-onc Dr Posey from [place] did imaging 1m ago but pt so anxious it could not be completed and pt needed to be hospitalized, pt declines brain imaging today lives alone in [place] pt thinks very slowly, spent 5 minutes trying to tell me where she lived, after dtr-in-law asked re "[facility]" pt took one minute to say she lived near [facility] denies falls, no use of walker or cane says her only fluids today was a sip of water with a pill and her only food was the pill has no appetite no pain, no f/c/d, no nausea wt down ~12 lbs in past month per dtr-in-law pt's sister is visiting from [place] for the past week there has been discussion re a different living arrangement, none enacted pt is "very independent" per dtr-in-law she "needs a pill organizer" as per dtr-in-law on [place] x 1m brain RT done for likely brain mets ()given mediastinal reoccurrence) altho no known mets on imaging on 3 l/min O2 via [place] for COPD which is at baseline Past Medical History HEENT History: Reports: Cataract, Impaired Vision Cardiovascular History: Reports: Aneurysm (4cm AAA), Blood Clots/VTE/DVT, Syncope Other Cardiovascular History: 4cm aortic aneurysm Respiratory History: Reports: COPD, Pneumonia, Recurrent Other Respiratory History: pt undergone radiation therapy on for her lungs before. Gastrointestinal History: Reports: Bowel Obstruction, Other (See Below) Other Gastrointestinal History: colon surgery with hernia following- hernia to left lower abd repaired with mesh but over time hernia reapeared TIGHT ROPE WALKER History: Reports: Other TIGHT ROPE WALKER History: past c-sections Musculoskeletal History: Reports: Arthritis, Osteoarthritis Other Psychiatric History: verbalizes some depression at times Oncologic (Cancer) History: Reports: Lung (Treated with radiation therapy) - Past Surgical History GI Surgical History: Reports: Appendectomy, Cholecystectomy, Colon, Hernia Repair/Other Female Surgical History: Reports: Section Social & Family History - Family History Family Medical History: Noncontributory Cardiac: Reports: Heart Failure, Other (See Below) Other Cardiac Family History: her sister of stroke Respiratory: Reports: None Dermatologic: Reports: None Oncologic: Reports: Pancreatic Other Oncologic Family History: pt's father due to pancreatic cancer - Caffeine Use Caffeine Use: Reports: Soda Other Caffeine Use: drinks soda everyday. - Living Situation & Occupation Occupation: Retired ED ROS GENERAL - Review of Systems Review Of Systems: See Below Constitutional: Reports: Weakness, Weight Loss HEENT: Reports: No Symptoms Respiratory: Reports: No Symptoms Cardiovascular: Reports: No Symptoms Endocrine: Reports: No Symptoms GI/Abdominal: Reports: Decreased Appetite : Reports: No Symptoms Musculoskeletal: Reports: No Symptoms Skin: Reports: No Symptoms Neurological: Reports: No Symptoms Psychiatric: Reports: No Symptoms Hematologic/Lymphatic: Reports: No Symptoms Immunologic: Reports: No Symptoms ED EXAM, GENERAL - Physical Exam Exam: See Below Exam Limited By: Altered Mental Status General Appearance: Alert, No Apparent Distress, Other (alert, pleasant, makes eye contact, NAD, tries to answer questions, has a hard time completing her thoughts, is able to answer appropriately when she does answer, no dysarthria) Eye Exam: Bilateral Eye: EOMI, PERRL Ears: Hearing Grossly Normal Nose: Normal Inspection, Normal Mucosa, No Blood Throat/Mouth: Normal Voice, No Airway Compromise Head: Atraumatic Respiratory/Chest: Other (coarse BS with rhonchi, fair AE, no dyspea, mild exp wheeze with mild inc'd exp phase, no retractions, some use of accessory muscles at times, breathing at baseline per dtr-in-law, no cough) GI/Abdominal: Normal Bowel Sounds, Soft, Non-Tender, No Distention Back Exam: Normal Inspection, Full Range of Motion. No: CVA Tenderness (R), CVA Tenderness (L) Extremities: Normal Inspection, Normal Range of Motion, Non-Tender, No Pedal Edema Neurological: Alert, CN II-XII Intact, No Motor/Sensory Deficits Psychiatric: Other (mild depressed mood, no anxiety, pleasant, interactive) Skin Exam: Warm, Dry, Intact, Normal Color, No Rash, Other (no dec'd turgor) Lymphatic: No Adenopathy Course - Vital Signs Last Recorded V/S: Last Vital Signs Temp 36.8 C 01/25/20 16:20 Pulse 95 01/25/20 21:29 Resp 24 H 01/25/20 21:29 BP 142/76 H 01/25/20 21:29 Pulse Ox 97 01/25/20 21:29 - Orders/Labs/Meds Orders: Active Orders 24 hr Category Date Time Status Oxygen Therapy Adult [Oxygen Therapy, ED] [RC] Care 01/25/20 16:15 Active ASDIRECTED CULTURE URINE [RM] Stat Lab 01/25/20 18:43 Received Labs: Laboratory Tests 01/25/20 Range/Units 18:43 Urine Color Yellow (YELLOW) Urine Appearance Clear (CLEAR) Urine pH 5.0 (5.0-6.5) Ur Specific Douglas 1.015 (1.010-1.025) Urine Protein Negative (NEGATIVE) mg/dL Urine Glucose (UA) Normal (NORMAL) mg/dL Urine Ketones 50 H (NEGATIVE) mg/dL Urine Occult Blood Negative (NEGATIVE) Urine Nitrite Negative (NEGATIVE) Urine Bilirubin Small H (NEGATIVE) Urine Urobilinogen 4 H (NEGATIVE) mg/dL Ur Leukocyte Esterase Negative (NEGATIVE) Urine RBC 0-5 (0-5) Urine WBC 0-5 (0-5) Ur Squamous Epith Cells Rare (NS,R,O) Urine Bacteria Rare H (NS) Meds: Medications Discontinued Medications Generic Name Dose Route Start Last Admin Trade Name Freq PRN Reason Stop Dose Admin Sodium Chloride 1,000 mls @ 999 mls/hr 01/25/20 17:27 01/25/20 18:45 Normal Saline IV 01/25/20 18:27 999 mls/hr .BOLUS ONE Administration Sodium Chloride 1,000 mls @ 999 mls/hr 01/25/20 17:28 01/25/20 20:00 Normal Saline IV 01/25/20 18:28 999 mls/hr .BOLUS ONE Administration Sepsis Event Note (ED) - Focused Exam Vital Signs: Vital Signs Pulse Resp BP Pulse Ox 01/25/20 21:29 95 24 H 142/76 H 97 01/25/20 20:00 90 20 133/78 99 - My Orders Last 24 Hours: My Active Orders 01/25/20 16:15 Oxygen Therapy Adult [Oxygen Therapy, ED] [RC] ASDIRECTED - Assessment/Plan Last 24 Hours: My Active Orders 01/25/20 16:15 Oxygen Therapy Adult [Oxygen Therapy, ED] [RC] ASDIRECTED
[2020-01-25] MEDS: Sodium Chloride 0.9% 1,000 ML IV ONE ×2 (18:45→20:00)
== END 2020-01-25 21:50 | disposition home or self-care (01) ==
LOC: FB.ED 16:15
DX: E86.0 Dehydration (principal); F09 Unspecified mental disorder due to known physiological condition; J44.9 Chronic obstructive pulmonary disease, unspecified; C34.90 Malignant neoplasm of unspecified part of unspecified bronchus or lung; C79.31 Secondary malignant neoplasm of brain; M19.90 Unspecified osteoarthritis, unspecified site; F32.9 Major depressive disorder, single episode, unspecified; Z79.82 Long term (current) use of aspirin; Z79.899 Other long term (current) drug therapy; Z91.048 Other nonmedicinal substance allergy status; Z88.0 Allergy status to penicillin; Z88.2 Allergy status to sulfonamides; Z88.1 Allergy status to other antibiotic agents
CPT/HCPCS: 81001; 87086; 96360; 96361; 99284; J7030

== ENCOUNTER 2020-01-30 10:56 | Inpatient (IN) | payer MEDICARE, OTHER ==
--- NOTE | 2020-01-31 14:03 | PCM.HP.2 ---
H&P History of Present Illness - General Date of Service: 01/31/20 Admit Problem/Dx: Admission Diagnosis/Problem Admission Diagnosis/Problem Cachexia Source of Information: Patient, Old Records History Limitations: Reports: No Limitations - History of Present Illness Initial Comments - Free Text/Narative: Angela is a 74 yo with lung cancer,admitted for rehab in [facility].She ahs had poor appetite,cachexia,after chemo,and is very weak. She also has a h/o COPD,MDD ,AAA, hypothyroidism, and a h.o small bowel obstruction. - Related Data Allergies/Adverse Reactions: Allergies Allergy/AdvReac Type Severity Reaction Status Date / Time adhesive Allergy Rash Verified 01/08/19 16:25 Penicillins Allergy Hives Verified 01/08/19 16:25 sulfamethoxazole Allergy Hives Verified 01/08/19 16:25 [From Bactrim] trimethoprim [From Bactrim] Allergy Hives Verified 01/08/19 16:25 Home Medications: Home Meds Aspirin [Ecotrin EC] 325 mg PO DAILY 04/08/14 [History] FLUoxetine [PROzac] 40 mg PO DAILY 04/08/14 [History] Fluticasone/Salmeterol [Advair 250-50] 1 puff PO BID 04/08/14 [History] Mv,Calcium,Min/Iron/Folic/Vitk [Multi For Her Tablet] 1 tab PO DAILY 04/08/14 [History] QUEtiapine Fumarate [Seroquel] 25 mg PO DAILY@1200 04/08/14 [History] Acetaminophen [Tylenol] 650 mg PO Q4H PRN 11/13/18 [History] Cholecalciferol (Vitamin D3) [Vitamin D3] 1,000 units PO DAILY tablet 01/12/19 [Rx] Ascorbate Calcium [Vitamin C] 500 mg PO DAILY 01/31/20 [History] Levothyroxine 75 mcg PO DAILY 01/31/20 [History] Megestrol [Megace 40 MG/ML Susp] 400 mg PO DAILY 01/31/20 [History] QUEtiapine [SEROquel] 50 mg PO BEDTIME 01/31/20 [History] dronabinoL [Dronabinol] 5 mg PO BIDAC 01/31/20 [History] predniSONE [Prednisone] 10 mg PO DAILY 01/31/20 [History] Past Medical History HEENT History: Reports: Cataract, Impaired Vision Other HEENT History: wears glasses Cardiovascular History: Reports: Aneurysm, Blood Clots/VTE/DVT, Syncope Other Cardiovascular History: 4cm aortic aneurysm Respiratory History: Reports: COPD, Pneumonia, Recurrent Other Respiratory History: pt undergone radiation therapy on for her lungs before. Gastrointestinal History: Reports: Bowel Obstruction, Other (See Below) Other Gastrointestinal History: colon surgery with hernia following- hernia to left lower abd repaired with mesh but over time hernia reapeared [employer] History: Reports: Other OB/BYN History: past c-sections Musculoskeletal History: Reports: Arthritis, Osteoarthritis Neurological History: Reports: Other (See Below) Other Neuro History: confusion after preventative radiation to brain Psychiatric History: Reports: Depression Other Psychiatric History: verbalizes some depression at times Oncologic (Cancer) History: Reports: Lung Other Oncologic History: 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 - Past Surgical History GI Surgical History: Reports: Appendectomy, Cholecystectomy, Colon, Hernia Repair/Other Female Surgical History: Reports: Section Social & Family History - Family History Family Medical History: Noncontributory Cardiac: Reports: Heart Failure, Other (See Below) Other Cardiac Family History: her sister of stroke Respiratory: Reports: None Dermatologic: Reports: None Oncologic: Reports: Pancreatic Other Oncologic Family History: pt's father due to pancreatic cancer - Caffeine Use Caffeine Use: Reports: Soda Other Caffeine Use: drinks soda everyday. - Living Situation & Occupation Occupation: Retired H&P Review of Systems - Review of Systems: Review Of Systems: Comprehensive ROS is negative, except as noted in HPI. Exam - Exam Exam: See Below - Vital Signs Vital Signs: Last Vital Signs Temp 97.3 F 01/31/20 11:50 Pulse 87 01/31/20 11:50 Resp 18 01/31/20 11:50 BP 144/83 H 01/31/20 11:50 Pulse Ox 96 01/31/20 11:50 Weight: 69.127 kg - Exam Quality Assessment: Supplemental Oxygen General: Lethargic HEENT: PERRLA Neck: Supple Lungs: Rales Cardiovascular: Regular Rate Extremities: Normal Range of Motion, Non-Tender Skin: Warm Neurological: Cranial Nerves Intact Psychiatric: Alert, Normal Affect Sepsis Event Note - Focused Exam Vital Signs: Vital Signs Temp Pulse Resp BP Pulse Ox 01/31/20 11:50 97.3 F 87 18 144/83 H 96 Date Exam was Performed: 01/31/20 Time Exam was Performed: 19:27 - Problem List (1) Lung cancer SNOMED Code(s): 309526824 ICD Code: C34.90 - MALIGNANT NEOPLASM OF UNSP PART OF UNSP BRONCHUS OR LUNG Status: Acute Current Visit: Yes Qualifiers: Laterality: left Lung location: upper lobe of lung Qualified Code(s): C34.12 - Malignant neoplasm of upper lobe, left bronchus or lung (2) Cachexia SNOMED Code(s): 651428524 ICD Code: R64 - CACHEXIA Status: Acute Current Visit: Yes (3) Weakness SNOMED Code(s): 73129368 ICD Code: R53.1 - WEAKNESS Status: Acute Current Visit: Yes (4) COPD (chronic obstructive pulmonary disease) SNOMED Code(s): 92374514 ICD Code: J44.9 - CHRONIC OBSTRUCTIVE PULMONARY DISEASE, UNSPECIFIED Status: Acute Current Visit: Yes Qualifiers: COPD type: emphysema (5) MDD (major depressive disorder) SNOMED Code(s): 797670089 ICD Code: F32.9 - MAJOR DEPRESSIVE DISORDER, SINGLE EPISODE, UNSPECIFIED Status: Acute Current Visit: Yes (6) Hypothyroidism SNOMED Code(s): 35404090 ICD Code: E03.9 - HYPOTHYROIDISM, UNSPECIFIED Status: Acute Current Visit: Yes (7) Palliative care patient SNOMED Code(s): 353722914, 569895216 ICD Code: Z51.5 - ENCOUNTER FOR PALLIATIVE CARE Status: Acute Current Visit: No Problem List Initiated/Reviewed/Updated: Yes Orders Last 24hrs: Active Orders 24 hr Category Date Time Status Patient Status [ADT] Routine ADT 01/31/20 13:14 Active Height and Weight [RC] WEEKLY Care 01/31/20 13:14 Active Oxygen Therapy [RC] PRN Care 01/31/20 13:14 Active Up With Assistance [RC] ASDIRECTED Care 01/31/20 13:14 Active VTE/DVT Education [RC] Per Unit Routine Care 01/31/20 13:14 Active Vital Signs [RC] PER UNIT ROUTINE Care 01/31/20 13:14 Active OT Evaluation and Treatment [CONS] Routine Cons 01/31/20 13:14 Active PT Evaluation and Treatment [CONS] Routine Cons 01/31/20 13:14 Active Regular Diet [DIET] Diet 01/31/20 Breakfast Active Acetaminophen [Tylenol] Med 01/31/20 13:16 Active 650 mg PO Q4H PRN Ascorbic Acid [Vitamin C] Med 02/01/20 09:00 Active 500 mg PO DAILY Aspirin [Ecotrin] Med 02/01/20 09:00 Active 325 mg PO DAILY Cholecalciferol (Vitamin D3) [Vitamin D3] Med 02/01/20 09:00 Active 25 mcg PO DAILY FLUoxetine [PROzac] Med 02/01/20 09:00 Active 40 mg PO DAILY Levothyroxine Med 02/01/20 06:00 Active 75 mcg PO DAILY@0600 Megestrol [Megace 40 MG/ML Susp] Med 02/01/20 09:00 Active 400 mg PO DAILY Mometasone/Formoterol [Dulera 200-5 MCG] Med 02/01/20 09:00 Active 2 puff IH BID Multivitamins w-Iron/Ca/FA/Min [Thera M Plus] Med 02/01/20 09:00 Active 1 tab PO DAILY QUEtiapine [SEROqueL] Med 02/01/20 12:00 Active 25 mg PO DAILY@1200 QUEtiapine [SEROquel] Med 01/31/20 21:00 Active 50 mg PO BEDTIME dronabinoL [Marinol] Med 02/01/20 09:00 Active 5 mg PO BIDAC predniSONE Med 02/01/20 09:00 Active 10 mg PO DAILY Resuscitation Status Routine Resus Stat 01/31/20 13:14 Ordered Medication Orders Acetaminophen (Tylenol) 650 mg PO Q4H PRN PRN Reason: MILD PAIN Ascorbic Acid (Vitamin C) 500 mg PO DAILY [facility] Aspirin (Ecotrin) 325 mg PO DAILY [facility] Cholecalciferol (Vitamin D3) 25 mcg PO DAILY [facility] Dronabinol (Marinol) 5 mg PO BIDAC [facility] Fluoxetine HCl (Prozac) 40 mg PO DAILY [facility] Levothyroxine Sodium (Levothyroxine) 75 mcg PO DAILY@0600 [facility] Megestrol Acetate (Megace 40 Mg/Ml Susp) 400 mg PO DAILY [facility] Mometasone Furoate/Formoterol Fumar (Dulera 200-5 Mcg) 2 puff IH BID [facility] Multivitamins/Minerals (Thera M Plus) 1 tab PO DAILY [facility] Prednisone (Prednisone) 10 mg PO DAILY [facility] Quetiapine Fumarate (Seroquel) 50 mg PO BEDTIME [facility] Quetiapine Fumarate (Seroquel) 25 mg PO DAILY@1200 [facility] Assessment/Plan Comment:: Admit for rehab.PT/OT. Pain control.
[2020-02-01] MEDS: Levothyroxine 75 MCG Tab PO SCH (06:07)
[2020-02-01] MEDS: QUEtiapine 25 MG Tab PO SCH (06:15)
[2020-02-01] MEDS: Formoterol/Mometasone 200-5 MCG 8.8 GM Inhaler IH SCH ×2 (10:46→20:20)
[2020-02-01] MEDS: Megestrol Susp 40 MG/ML ML (240 ML Bottle) PO SCH (10:47)
[2020-02-01] MEDS: Aspirin 325 MG Tab.EC PO SCH (10:47)
[2020-02-01] MEDS: FLUoxetine 20 MG Cap PO SCH (10:49)
[2020-02-01] MEDS: predniSONE 10 MG Tab PO SCH (10:49)
[2020-02-01] MEDS: Multivitamins with Iron/Calcium/Folic Acid/Minerals Tab PO SCH (10:50)
[2020-02-01] MEDS: Ascorbic Acid 500 MG Tab PO SCH (10:50)
[2020-02-01] MEDS: Cholecalciferol (Vitamin D3) 25 MCG Tab PO SCH (10:50)
[2020-02-01] MEDS: Dronabinol 2.5 MG Cap PO SCH ×2 (11:06→17:54)
[2020-02-02] MEDS: Levothyroxine 75 MCG Tab PO SCH (06:13)
[2020-02-02] MEDS: Dronabinol 2.5 MG Cap PO SCH ×2 (07:05→18:18)
[2020-02-02] MEDS: Formoterol/Mometasone 200-5 MCG 8.8 GM Inhaler IH SCH ×2 (09:33→21:37)
[2020-02-02] MEDS: Aspirin 325 MG Tab.EC PO SCH (09:35)
[2020-02-02] MEDS: FLUoxetine 20 MG Cap PO SCH (09:36)
[2020-02-02] MEDS: predniSONE 10 MG Tab PO SCH (09:36)
[2020-02-02] MEDS: Megestrol Susp 40 MG/ML ML (240 ML Bottle) PO SCH (09:36)
[2020-02-02] MEDS: Ascorbic Acid 500 MG Tab PO SCH (09:37)
[2020-02-02] MEDS: Cholecalciferol (Vitamin D3) 25 MCG Tab PO SCH (09:37)
[2020-02-02] MEDS: Multivitamins with Iron/Calcium/Folic Acid/Minerals Tab PO SCH (09:37)
[2020-02-03] MEDS: Levothyroxine 75 MCG Tab PO SCH (06:29)
[2020-02-03] MEDS: Dronabinol 2.5 MG Cap PO SCH ×2 (06:54→17:56)
[2020-02-03] MEDS: Formoterol/Mometasone 200-5 MCG 8.8 GM Inhaler IH SCH ×2 (08:38→21:00)
[2020-02-03] MEDS: Aspirin 325 MG Tab.EC PO SCH (08:41)
[2020-02-03] MEDS: Megestrol Susp 40 MG/ML ML (240 ML Bottle) PO SCH (08:41)
[2020-02-03] MEDS: FLUoxetine 20 MG Cap PO SCH (08:42)
[2020-02-03] MEDS: predniSONE 10 MG Tab PO SCH (08:42)
[2020-02-03] MEDS: Multivitamins with Iron/Calcium/Folic Acid/Minerals Tab PO SCH (08:42)
[2020-02-03] MEDS: Cholecalciferol (Vitamin D3) 25 MCG Tab PO SCH (08:43)
[2020-02-03] MEDS: Ascorbic Acid 500 MG Tab PO SCH (08:43)
[2020-02-04] MEDS: Levothyroxine 75 MCG Tab PO SCH (05:06)
[2020-02-04] MEDS: Dronabinol 2.5 MG Cap PO SCH ×2 (06:54→17:37)
[2020-02-04] MEDS: Multivitamins with Iron/Calcium/Folic Acid/Minerals Tab PO SCH (10:02)
[2020-02-04] MEDS: Ascorbic Acid 500 MG Tab PO SCH (10:02)
[2020-02-04] MEDS: Cholecalciferol (Vitamin D3) 25 MCG Tab PO SCH (10:02)
[2020-02-04] MEDS: FLUoxetine 20 MG Cap PO SCH (10:02)
[2020-02-04] MEDS: Aspirin 325 MG Tab.EC PO SCH (10:03)
[2020-02-04] MEDS: QUEtiapine 25 MG Tab PO SCH (10:03)
[2020-02-04] MEDS: Formoterol/Mometasone 200-5 MCG 8.8 GM Inhaler IH SCH ×2 (10:03→20:14)
[2020-02-04] MEDS: predniSONE 10 MG Tab PO SCH (10:03)
[2020-02-04] MEDS: Megestrol Susp 40 MG/ML ML (240 ML Bottle) PO SCH (10:04)
[2020-02-05] MEDS: Levothyroxine 75 MCG Tab PO SCH (05:42)
[2020-02-05] MEDS: Megestrol Susp 40 MG/ML ML (240 ML Bottle) PO SCH (08:53)
[2020-02-05] MEDS: Multivitamins with Iron/Calcium/Folic Acid/Minerals Tab PO SCH (08:55)
[2020-02-05] MEDS: Aspirin 325 MG Tab.EC PO SCH (08:55)
[2020-02-05] MEDS: Formoterol/Mometasone 200-5 MCG 8.8 GM Inhaler IH SCH ×2 (08:55→20:39)
[2020-02-05] MEDS: predniSONE 10 MG Tab PO SCH (08:55)
[2020-02-05] MEDS: FLUoxetine 20 MG Cap PO SCH (08:55)
[2020-02-05] MEDS: Cholecalciferol (Vitamin D3) 25 MCG Tab PO SCH (08:55)
[2020-02-05] MEDS: Ascorbic Acid 500 MG Tab PO SCH (08:55)
[2020-02-05] MEDS: Dronabinol 2.5 MG Cap PO SCH ×2 (09:06→16:43)
--- NOTE | 2020-02-05 17:20 | PCM.PN ---
- General Info Date of Service: 02/05/20 Admission Dx/Problem (Free Text): She is more awake today, states she is more of a night owl, better in the afternoons. She was working with OT this morning and will work with PT this afternoon, making more progress today over yesterday, cooperating more with therapies. Seroquel stopped as patient was not taking it as prescribed but as needed, and did not receive in [place] at all. More alert since stopping. Having some congestion with cough but states that is normal with her COPD. Takes Dulera bid but does not have any rescue inhalers as needed for shortness of breath. On oxygen. Care conference today, therapies felt she would need assisted living placement to give her some more time to get stronger rather than doing just swing bed then home. - Review of Systems General: Reports: No Symptoms Pulmonary: Reports: Shortness of Breath (chronic), Cough Cardiovascular: Reports: No Symptoms Gastrointestinal: Reports: No Symptoms Genitourinary: Reports: No Symptoms - Patient Data Vitals - Most Recent: Last Vital Signs Temp 98.6 F 02/05/20 07:55 Pulse 81 02/05/20 07:55 Resp 22 H 02/05/20 07:55 BP 148/69 H 02/05/20 07:55 Pulse Ox 97 02/05/20 07:55 Weight - Most Recent: 152 lb 6.4 oz Med Orders - Current: Current Medications Acetaminophen (Tylenol) 650 mg PO Q4H PRN PRN Reason: MILD PAIN Albuterol (Proventil Neb Soln) 2.5 mg NEB Q4H PRN PRN Reason: Shortness of Breath Ascorbic Acid (Vitamin C) 500 mg PO DAILY [facility] [place] Last Admin: 02/05/20 08:55 Dose: 500 mg Documented by: Aspirin (Ecotrin) 325 mg PO DAILY [facility] [place] Last Admin: 02/05/20 08:55 Dose: 325 mg Documented by: Cholecalciferol (Vitamin D3) 25 mcg PO DAILY [facility] [place] Last Admin: 02/05/20 08:55 Dose: 25 mcg Documented by: Dronabinol (Marinol) 5 mg PO BIDAC [facility] [place] Last Admin: 02/05/20 16:43 Dose: 5 mg Documented by: Fluoxetine HCl (Prozac) 40 mg PO DAILY [facility] [place] Last Admin: 02/05/20 08:55 Dose: 40 mg Documented by: Levothyroxine Sodium (Levothyroxine) 75 mcg PO DAILY@0600 [facility] [place] Last Admin: 02/05/20 05:42 Dose: 75 mcg Documented by: Megestrol Acetate (Megace 40 Mg/Ml Susp) 400 mg PO DAILY [facility] [place] Last Admin: 02/05/20 08:53 Dose: 400 mg Documented by: Mometasone Furoate/Formoterol Fumar (Dulera 200-5 Mcg) 2 puff IH BID [facility] [place] Last Admin: 02/05/20 08:55 Dose: 2 puff Documented by: Multivitamins/Minerals (Thera M Plus) 1 tab PO DAILY [facility] [place] Last Admin: 02/05/20 08:55 Dose: 1 tab Documented by: Prednisone (Prednisone) 10 mg PO DAILY [facility] [place] Last Admin: 02/05/20 08:55 Dose: 10 mg Documented by: Discontinued Medications Quetiapine Fumarate (Seroquel) 50 mg PO BEDTIME [facility] [place] Last Admin: 02/03/20 21:00 Dose: 50 mg Documented by: Quetiapine Fumarate (Seroquel) 25 mg PO DAILY@1200 [facility] [place] Last Admin: 02/04/20 10:03 Dose: 25 mg Documented by: - Exam General: Alert, Oriented, Cooperative, No Acute Distress Lungs: Normal Respiratory Effort, Wheezing (throughout, wet cough but nonproductive) Cardiovascular: Regular Rate, Regular Rhythm GI/Abdominal Exam: Normal Bowel Sounds, Soft, Non-Tender, No Distention Extremities: No Pedal Edema Sepsis Event Note - Evaluation Sepsis Screening Result: No Definite Risk - Focused Exam Vital Signs: Vital Signs Temp Pulse Resp BP Pulse Ox 02/05/20 07:55 98.6 F 81 22 H 148/69 H 97 Date Exam was Performed: 02/05/20 Time Exam was Performed: 17:15 - Problem List & Annotations (1) Weakness SNOMED Code(s): 36570480 Code(s): R53.1 - WEAKNESS Status: Acute Current Visit: Yes (2) COPD (chronic obstructive pulmonary disease) SNOMED Code(s): 72928156 Code(s): J44.9 - CHRONIC OBSTRUCTIVE PULMONARY DISEASE, UNSPECIFIED Status: Chronic Current Visit: Yes Qualifiers: COPD type: emphysema (3) Lung cancer SNOMED Code(s): 219897008 Code(s): C34.90 - MALIGNANT NEOPLASM OF UNSP PART OF UNSP BRONCHUS OR LUNG Status: Acute Current Visit: Yes Qualifiers: Laterality: left Lung location: upper lobe of lung Qualified Code(s): C34.12 - Malignant neoplasm of upper lobe, left bronchus or lung (4) Metastatic cancer to brain Status: Acute Current Visit: No (5) MDD (major depressive disorder) SNOMED Code(s): 237996534 Code(s): F32.9 - MAJOR DEPRESSIVE DISORDER, SINGLE EPISODE, UNSPECIFIED Status: Chronic Current Visit: Yes (6) Hypothyroidism SNOMED Code(s): 00822412 Code(s): E03.9 - HYPOTHYROIDISM, UNSPECIFIED Status: Chronic Current Visit: Yes - Problem List Review Problem List Initiated/Reviewed/Updated: Yes - My Orders Last 24 Hours: My Active Orders 02/05/20 16:53 RT Aerosol Therapy [RC] ASDIRECTED Albuterol [Proventil Neb Soln] 2.5 mg NEB Q4H PRN - Plan Plan:: Add Albuterol nebs q4h as needed shortness of breath. Continue Dulera bid. Continue PT/OT. Reassess next week.
[2020-02-05] MEDS: Albuterol 0.083% 2.5 MG/3 ML Neb Soln NEB PRN (18:54)
[2020-02-05] MEDS: Acetaminophen 325 MG Tab PO PRN (18:58)
[2020-02-06] MEDS: Levothyroxine 75 MCG Tab PO SCH (05:49)
[2020-02-06] MEDS: Albuterol 0.083% 2.5 MG/3 ML Neb Soln NEB PRN (05:49)
[2020-02-06] MEDS: Dronabinol 2.5 MG Cap PO SCH ×2 (08:23→16:50)
[2020-02-06] MEDS: Formoterol/Mometasone 200-5 MCG 8.8 GM Inhaler IH SCH ×2 (08:23→20:11)
[2020-02-06] MEDS: predniSONE 10 MG Tab PO SCH (08:24)
[2020-02-06] MEDS: Cholecalciferol (Vitamin D3) 25 MCG Tab PO SCH (08:24)
[2020-02-06] MEDS: Ascorbic Acid 500 MG Tab PO SCH (08:24)
[2020-02-06] MEDS: Aspirin 325 MG Tab.EC PO SCH (08:24)
[2020-02-06] MEDS: Megestrol Susp 40 MG/ML ML (240 ML Bottle) PO SCH (08:24)
[2020-02-06] MEDS: Multivitamins with Iron/Calcium/Folic Acid/Minerals Tab PO SCH (08:24)
[2020-02-06] MEDS: FLUoxetine 20 MG Cap PO SCH (08:24)
--- OUTSIDE RECORDS SUMMARY | 2020-02-06 13:46 | XMSREPORT ---
:1945 Author Organization [facility] and [facility] s Address [address] [place] [address] Care Team Providers Name Role Phone MD Frandy Unavailable MD Deion Unavailable Renata Deshpande MD Primary Care Provider Renata Deshpande MD Attributed Provider Reason for Visit Reason Comments Diarrhea Pt arrives with family, stat es she has had no appetite for 1 week, states she has also had diarrhea st arting today. Denies fever. Pt has hx of lung cancer that spread to her ly mph nodes, not currently receiving chemo. Auth/Cert Status Reason Specialty Diagnoses / Procedures Referred By Estee chavez Referred To Contact Encounter Details Date Type Department Care Team Description 01/27/2020 - Hospital Encounter [facility] Kumar HopeDO [address] [place] [address] Abdominal aortic 01/31/2020 Center 7Jules Youngblood MD [address] [place] [address] [phone] aneurysm (AAA) [address] Charles Coreas MD [address] [place] [address] [phone] without rupture [place], [place]ACE [address] ([facility]) [phone] Allergies Active Allergy Reactions Severity Noted Date Comments Adhesives Other (Specify in 06/13/2012 Adhesive o f some Comments) tapes- skin reaction Sulfamethoxazole Hives (High), Rash High 06/13/2012 W-Trimethoprim Penicillin Hives (High), Rash High 06/13/2012 Sulfa Drugs Itching 06/28/2014 documented as of this encounter (statuses as of 01/31/2020) Medications Medication Sig Dispensed Refills Start Date End Date Status Multiple Take 1 tablet 0 Active Vitamins-Minerals by mouth 1 (ONE DAILY FOR time per day. WOMEN) TABS aspirin (ECOTRIN) Take 325 mg by 0 Active 325 mg enteric mouth 1 time coated tablet per day. vitamin D3, Take 1,000 0 Active cholecalciferol, Units by mouth 1000 units tablet 1 time per day vitamin C, ascorbic Take 400 mg by 0 Active acid, 500 MG tablet mouth 1 time per day FLUoxetine (PROZAC) Take 1 capsule 90 capsule 4 09/13/2019 Active 40 mg (40 mg) by capsuleIndications: mouth 1 time Major depressive per day disorder, recurrent episode, moderate ([facility]) fluticasone-salmeter INHALE ONE 1 Inhaler 12 09/13/2019 Active ol (ADVAIR DISKUS) PUFF BY MOUTH 250-50 mcg/dose TW ICE A DAY discusIndications: ....RINSE COPD with asthma MOUTH A FTER ([facility]) USE QUEtiapine TAKE 1 TABLET 90 tablet 12 09/13/2019 Acti ve (SEROQUEL) 25 mg BY MOUTH AT N tabletIndications: OON AND TAKE 2 Major depressive TABLETS BY M disorder, recurrent OUTH AT episode, moderate BEDTIME (HCC) levothyroxine 75 mcg Take 1 tablet 30 tablet 1 11/27/2019 Active tabletIndications: (75 mcg) by Hypothyroidism mouth 1 time (acquired) per day megestrol acetate Take 10 mL 240 mL 11 01/08/2020 Active (MEGACE) 400 mg/10 (400 mg) by mL oral mouth 1 time suspensionIndication per day s: Anorexia acetaminophen Take 2 tablets 30 tablet 0 01/31/2020 Active (TYLENOL) 325 mg (650 mg) by tabletIndications: mouth Every 4 Primary malignant hours as neoplasm of bronchus needed for of left upper lobe mild pain (HCC) predniSONE 10 mg Take 1 tablet 30 tablet 0 01/31/2020 Active tabletIndications: (10 mg) by Primary malignant mouth 1 time neoplasm of bronchus per day of left upper lobe (HCC) Oxygen therapy 2 Liters of 1 each 0 Act jamari oxygen via nasal cannula at rest and with activity dronabinol (MARINOL) Take 2 60 capsule 0 01/31/2020 Active 2.5 MG capsules (5 CAPSIndications: mg) by mouth 2 Primary malignant times a day neoplasm of bronchus before meals of left upper lobe (HCC) dronabinol (MARINOL) Take 2 60 capsule 0 01/31/2020 02 Discontinued 2.5 MG capsules (5 0 CAPSIndications: mg) by mouth 2 Primary malignant times a day neoplasm of bronchus before meals of left upper lobe (HCC) documented as of this encounter (statuses as of 01/31/2020) Active Problems Problem Noted Date Weakness 01/28/2020 Hypothyroidism (acquired) 11/27/2019 Altered mental status 11/06/2019 Port or reservoir infection 10/12/2019 Antineoplastic chemotherapy induced anemia 09/24/2019 Dehydration 08/07/2019 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 Please see his comprehensive note as well. History and natural progression of aneur ysms was reviewed with patient as well as potential procedures that can be done to treat aneurysms. Patient is advised that her aneurysm is 4.7 cm in size at this time, minimal increase in size since pr evious CT scan done in October of this year. Dr. Escalante recommends proceeding with repair when she reaches 5.0 cm in size. The aneurysm has not reached the size wh ere repair would be recommended in the n ear future. Dr. Escalante recommends follow up with another CT scan in 9 - 12 months. Patient verbalized understanding and agrees with this plan. Patient has been provided with written patient education as well as our contact information. She is encouraged to call with any questions or concerns Small bowel obstruction 11/07/2018 History of DVT (deep vein thrombosis) 07/27/2015 Lung mass 06/25/2015 Preoperative examination 09/09/2010 Major depression, recurrent COPD with asthma documented as of this encounter (statuses as of 01/31/2020) Resolved Problems Problem Noted Date Resolved Date Acute thromboembolism of deep veins of lower extremity 09/2908/20/2013 alf current use of anticoagulant therapy 09/29/2010 05/25/2019 Essential hypertension 05/25/2019 documented as of this encounter (statuses as of 01/31/2020) Immunizations Name Administration Dates Next Due Influenza Trivalent w/preserv 06/03/2010, 04/25/2008, 05/08, 05/11/2006 FLU VACCINE HIGH DOSE 65YR+(Fluzone) 04/18/2019, 04/20/2018, 04/20/2017, 04/24/2015, 05/01/2014, 05/01/2014, 04/09/2013, 04/09/2013, 05/04/2012, 05/04/2012, 04/20/2011, 04/20/2011 FLU VACCINE SINGLE DOSE 04/20/2016 0.5mL(6MO+Fluzone/Flulaval/Fluarix/3YR +Afluria) H1N1 Vaccine 07/31/2009 Influenza Vaccine,unspecified 04/20/2016 Pneumococcal Conj PCV13 05/15/2018 Pneumococcal Polysaccharide PPSV23 08/04/2010, 06/11/2005 documented as of this encounter Social History Tobacco Use Types Packs/Day Years Used Date Former Smoker Cigarettes 1.5 52 07/24/1962 - 0 01/06/2019 Smokeless Tobacco: Never Used Alcohol Use Drinks/Week oz/Week Comments Not Currently 6 Cans of beer 6.0 Physical Activity Answer Date Recorded On average, how many days per week do you engage in moderate to 0 days 07/31/2019 strenuous exercise (like walking fast, running, jogging, dancing, swimming, biking, or other activities that cause a light or heavy sweat)? On average, how many minutes do you engage in exercise at th is 0 min 07/31/2019 level? Sexually Active Control Partners Comments Not Currently Sex Assigned at Date Recorded Not on file Job Start Date Occupation Industry Not on file Not on file Not on file Travel History Travel Start Travel End No recent travel history available. documented as of this encounter Last Filed Vital Signs Vital Sign Reading Time Taken Comments Blood Pressure 150/83 01/31/2020 8:19 AM CDT Pulse 85 01/31/2020 8:19 AM CDT Temperature 37.1 C (98.7 F) 01/31/2020 8:19 AM CDT Respiratory Rate 20 01/31/2020 8:19 AM CDT Oxygen Saturation 96% 01/31/2020 8:19 AM CDT Inhaled Oxygen Concentration - - Weight 70.8 kg (156 lb 1.6 oz) 01/31/2020 6:14 AM CDT Height 154.9 cm (5' 1") 01/28/2020 3:00 AM CDT Body Mass Index 29.49 01/28/2020 3:00 AM CDT documented in this encounter Functional Status Functional Status Response Date of Assessment Is the person deaf or does he/she have serious difficulty No 01/28/2020 hearing? Is this person blind or does he/she have difficulty No 01/28/2020 seeing even when wearing glasses? Do you have difficulty with walking, balance, climbing Yes 01/28/2020 stairs, or had a fall in the last 3 months? Does the patient have difficulty dressing or bathing? Yes 01/28/2020 Because of a physical, mental, or emotional condition; Yes 01/28/2020 does this person have difficulty doing errands alone such as visiting a doctor's office or shopping? Cognitive Status Response Date of Assessment Because of a physical, mental, or emotional condition; Yes 01/28/2020 does this person have serious difficulty concentrating, remembering, or making decisions? documented as of this encounter Discharge Summaries Not on filedocumented in this encounter Discharge Instructions Sherly Tinoco, EMERGENCY SERVICES PROFESSIONAL - 01/31/2020Labs on February 13 at [facility] lab slip faxed and sent in packet with patient. documented in this encounter Medications at Time of Discharge Medication Sig Dispensed Refills Start Date End Date acetaminophen (TYLENOL) Take 2 tablets (650 30 tablet 0 325 mg tabletIndications: mg) by mouth Every 4 Primary malignant neoplasm hours as needed for of bronchus of left upper mild pain lobe (HCC) predniSONE 10 mg Take 1 tablet (10 30 tablet 0 01/31/2020 tabletIndications: Primary mg) by mouth 1 time malignant neoplasm of per day bronchus of left upper lobe (HCC) dronabinol (MARINOL) 2.5 Take 2 capsules (5 60 capsule 0 MG CAPSIndications: mg) by mouth 2 times Primary malignant neoplasm a day before meals of bronchus of left upper lobe (HCC) megestrol acetate (MEGACE) Take 10 mL (400 mg) 240 mL 11 01/08/2020 400 mg/10 mL oral by mouth 1 time per suspensionIndications: day Anorexia levothyroxine 75 mcg Take 1 tablet (75 30 tablet 1 11/27/19 20 tabletIndications: mcg) by mouth 1 time Hypothyroidism (acquired) per day FLUoxetine (PROZAC) 40 mg Take 1 capsule (40 90 capsule 4 capsuleIndications: Major mg) by mouth 1 time depressive disorder, per day recurrent episode, moderate (HCC) fluticasone-salmeterol INHALE ONE PUFF BY 1 Inhaler 12 09/13 (ADVAIR DISKUS) 250-50 MOUTH TW ICE A DAY mcg/dose ....RINSE MOUTH A discusIndications: COPD FTER USE with asthma (HCC) QUEtiapine (SEROQUEL) 25 TAKE 1 TABLET BY 90 tablet 12 09/13 mg tabletIndications: MOUTH AT N OON AND Major depressive disorder, TAKE 2 TABLETS BY M recurrent episode, OUTH AT BEDTIME moderate (HCC) vitamin C, ascorbic acid, Take 400 mg by mouth 0 500 MG tablet 1 time per day Multiple Vitamins-Minerals Take 1 tablet by 0 (ONE DAILY FOR WOMEN) TABS mouth 1 time per day. aspirin (ECOTRIN) 325 mg Take 325 mg by mouth 0 enteric coated tablet 1 time per day. Oxygen therapy 2 Liters of oxygen 1 each 0 via nasal cannula at rest and with activity vitamin D3, Take 1,000 Units by 0 cholecalciferol, 1000 mouth 1 time per day units tablet documented as of this encounter Progress Notes Tejinder Wise MD - 01/30/2020 7:31 PM CDT Hematology/Oncology Daily Progress Note Angela Larson is a 74yr old female admitted on 01/27/2020. 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 * Plan: Try Prednisone 10 mg PO daily. Transfer to [place] or swing bed. HPI / History / ROS HPI Mrs. 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 Unfortunately she was found to have lymph node metastases and a biopsy showed small cell carcinoma. These were found in mediastinal lymph nodes. The biopsy of the mediastinal lymph nodes was on 06/27/2019. She wastreated with concomitant chemotherapy including carboplatin, etoposide and atezolizumab as well as radiation therapy to the mediastinum. She received 4 cycles of the chemotherapy. The last cycle was on 09/24/2019. After that, she started maintenance atezolizumab on 10/15/2019. She did receive prophylactic cranial irradiation starting 11/20/2019 with 10 fractions under the direction of Dr. Albarran. She went to the emergency room on 01/27/2020. The emergency room diagnosis was failure to thrive. She was dehydrated. She has some diarrhea. In view of her dehydration and diarrhea, she was admittedand received IV fluids. She did improve. There was evidence of malnutrition. In view of that, a nutrition consult was placed. When I saw her on 01/28/2020 she was a bit confused. Her memory is poor. She blames this on her prophylactic cranial radiation. In view of her symptomatology I did order a brain MRI scan. On 01/29/2020, the patient was seen in her hospital room. She seemed fairly comfortable. She complained again of poor memory. She also complains of lumps on her scalp. She felt that I should prescribe a cream for these lumps. I am not sure what these represent. These could just be some normal anatomical features. It is not impossible that they represent metastatic disease to the skull, but I was not convinced that these should be further evaluated at this time. I told the patient that she canuse the cream and I just mentioned to the nurse to give her some cream to put on her scalp. The patient is still alopecic due to the previous radiation therapy and chemotherapy. Her physical exam on 01/29/2020 was otherwise unremarkable. She did appear somewhat weak, but she was sitting in a chair. I did not really find any new significant changes. Her lab work on 01/29/2020 showed a white count of 6,600, hemoglobin 10.9, platelet count 260,000. Differential count normal. C hemistries, glucose 102. Sodium 133, potassium 3.4. Other values were all within normal limits. B12 level 411. I did obtain evening cortisol on the which was 3.1 mg/dL. The morning cortisol on 01/29/2020 was 7 mg/dL. I felt that these were normal. This was reassuring that she did not have autoimmune hypoadrenalism. I did order an MRI scan of the brain. This was done on 01/29/2020 and showed: 1. No acute infarct. 2. No abnormal enhancement to suggest metastatic disease. 3. Encephalomalacic changes in the left frontal lobe laterally, stable likely from prior injury or infarct. 4. Multiple foci of T2 flair signal, hyperintensity seen throughout the supratentorial/periventricular white matter. This was felt nonspecific mass, but most likely represents the sequela of chronic small vessel ischemic changes. 5. Mild mucosal thickening in the paranasal sinuses. 6. Mild generalized parenchymal volume loss. None of these changes were really significant. The scalp did not show any significant abnormalities. The patient told me that she would like not to be treated for a while. I certainly will respect herdecision. I do not think that this is the most helpful decision for her cancer. The addition of atezolizumab to the chemoradiation definitely has prolonged remission time and helped patients with stage III small cell carcinoma of the lung. Again, nevertheless we will have to respect her decision. She was due for a dose of atezolizumab on 01/29/2020. Obviously we cannot administer that in the hospital. This has to be administered as an outpatient. I will let medicine take care of the patient and follow to see how she evolves. She might eventually change her mind, but for the time being, she will not be treated. As far as disposition, it seems that she might do better in a protected environment such as a senior care, but she may not accept that. We will see what the final decision is. On 01/30/20 she had an EEG showing: EEG Interpretation: This EEG is abnormal due to the presence of: 1) Mild generalized slowing. - This is a non-specific finding but is consistent with a generalized disturbance of cerebral function. It may be seen in a variety of conditions, such as toxic, metabolic, post-anoxic, multi-focal or diffuse structural abnormalities. - No electrographic seizures or non-convulsive status epilepticus were seen during this recording. On 01/30/20 Mrs Larson was seen in her hospital room. Her sister was present at bed side. Mrs Larson continued to complain of severe weakness. She had no appetite and was eating very little. She felt too weak to keep on with her treatment. She was hoping to go to a swing bed in [place] on 01/31/20. She blames every thing on her cancer treatment. I explained to her again the purpose of her treatment.She did not seem to understand. She still had the small nodules on the scalp. She told me that she was too weak to continue with her treatment. She also wanted to know what to expect if she quits her treatment. I told her that I had no way to know. Only time would tell. If the cancer is cured she will remain stable for many months and improve. Otherwise the cancer would come back and we can,if she wishes,treat her again. Her PE was unchanged. I was able to palpate the minute nodules in her scalp. If[place] goes to [place],I'll set up a return apt in about 1 month. To try to help her with her strerngth and appetite,I did prescribe a low dose of daily Prednisone 10 mg. Review of Systems Constitutional: Positive for fatigue. Negative for appetite change (She has no appetite. Cannot eat enough to sustain herself.), chills, diaphoresis, fever and unexpected weight change. HENT: Negative. Eyes: Negative. Respiratory: Positive for cough and shortness of breath (Comfortable with O2 at 2 L/min.). Negative for chest tightness, hemoptysis and wheezing. Cardiovascular: Negative. Gastrointestinal: Negative. Endocrine: Negative. Genitourinary: Negative. Skin: Negative. Neurological: Positive for extremity weakness. Hematological: Negative. Psychiatric/Behavioral: Negative. Physical / Results Current Vital Signs Temp: 99.1 F (37.3 C) BP: 144/75 Weight: 70.7 kg (155 lb 14.4 oz) SpO2: 97 % Resp: 18 Pulse: 86 O2 Device: NC - no humidity O2 Flow Rate (L/min): 2 l/min Pain Ratin Maximum Temperatures (last 24 hours) Temperature Maximum Max Temp 99.1 F (37.3 C) Intake and Output: 01/28 0700 - 01/29 0659 In: 160 [Oral:160] Out: 200 [Urine:200] Physical Exam Constitutional: She appears well-developed and well-nourished. No distress. She does appear weak. HENT: Head: Normocephalic. Mouth/Throat: Oropharynx is clear and moist. No oropharyngeal exudate. Eyes: Pupils are equal, round, and reactive to light. Conjunctivae are normal. No scleral icterus. Neck: Normal range of motion. Neck supple. No tracheal deviation present. No thyromegaly present. Cardiovascular: Normal rate, regular rhythm and normal heart sounds. No murmur heard. Pulmonary/Chest: Effort normal and breath sounds normal. No stridor. No respiratory distress. She has no wheezes. She has no rales. She exhibits no tenderness. Abdominal: Soft. Bowel sounds are normal. She exhibits no distension and no mass. There is no tenderness. There is no rebound and no guarding. No hernia. Musculoskeletal: Normal range of motion. She exhibits no edema, tenderness or deformity. Lymphadenopathy: She has no cervical adenopathy. Neurological: She is alert. No cranial nerve deficit. Coordination normal. Skin: Skin is warm and dry. No rash noted. She is not diaphoretic. No erythema. No pallor. Psychiatric: She has a normal mood and affect. Charles Ding MD - 01/30/2020 1:00 AM [facility] PATIENT NAME: ANGELA LARSON DATE OF SERVICE: 01/30/2020 AMERICO: [id number] Ms. Angela Larson is a 74-year-old female admitted on 01/27/2020 with a poor appetite and generalized weakness and also has been getting progressively weak and fatigued. IMPRESSION AND PLAN: 1. Failure to thrive and significant weakness. No clear etiology is identified other than her underlying cancer. Getting Marinol and Megace, but the patient is still not showing much improvement. 2. Personality changes. The EEG and MRI did not show any acute findings. Discussed the further plan of care with the patient and the patient's sister. Also, discussed with Dr. Wise and, if no significant improvement noted in the next few days, the patient is interested in hospice care. Shewants to at home in her own couch. 3. Hypertension. The blood pressures are well controlled. 4. History of COPD. Looking stable. Continue with the Breo Ellipta. 5. Small cell carcinoma of the right lung. She has been following up with hematology/oncology and received atezolizumab 3 weeks ago. Hematology/oncology is following and the patient is currently not interested in any further chemotherapy or other treatment unless she makes good improvement. 6. Moderate protein calorie malnutrition. Currently getting nutritional supplements. 7. Hypothyroidism. The Synthroid dose is slightly increased. Continue with levothyroxine 88 mcgdaily. 8. History of depression, on Prozac. 9. DVT prophylaxis with Lovenox. SUBJECTIVE: The patient is still feeling weak, still not ambitious and feels like she does not havemuch to go for. Otherwise, she feels like her memory is worsening and more foggy. No other acute events happened overnight. The appetite is still poor. REVIEW OF SYSTEMS: GENERAL: Generalized weakness. No fevers or chills. RESPIRATORY: No cough. CARDIOVASCULAR: No chest pain. GASTROINTESTINAL: No nausea or vomiting. EXTREMITIES: Generalized weakness. VITAL SIGNS: Reviewed. MEDICATIONS: Reviewed and adjusted. LABS AND IMAGING STUDIES: Reviewed. PHYSICAL EXAMINATION: GENERAL: The elderly female is seen lying comfortable in the bed not in any obvious distress. CARDIOVASCULAR: S1, S2 heard. No murmurs or gallops. LUNGS: Air entry is present on both sides. No wheezing or creps. ABDOMEN: Soft, flat and nontender. No organomegaly. RUBBER PRESS TENDER: Awake, alert and oriented to time, place and person. EXTREMITIES: No pedal edema. Moving all of her limbs. A slight tremor is noted on the right side of the body. DERMATOLOGICAL: Warm and moist skin noted. Charles Coreas MD Receipt: [id number] Trans ID: [id number] [facility] [employer] CST ejinder Terry MD - 01/29/2020 7:26 PM CDT Hematology/Oncology Daily Progress Note Angela Larson is a 74yr old female admitted on 01/27/2020. 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 * Plan: Continue care per medicine. HPI / History / ROS HPI Mrs. 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 Unfortunately she was found to have lymph node metastases and a biopsy showed small cell carcinoma. These were found in mediastinal lymph nodes. The biopsy of the mediastinal lymph nodes was on 06/27/2019. She wastreated with concomitant chemotherapy including carboplatin, etoposide and atezolizumab as well as radiation therapy to the mediastinum. She received 4 cycles of the chemotherapy. The last cycle was on 09/24/2019. After that, she started maintenance atezolizumab on 10/15/2019. She did receive prophylactic cranial irradiation starting 11/20/2019 with 10 fractions under the direction of Dr. Albarran. She went to the emergency room on 01/27/2020. The emergency room diagnosis was failure to thrive. She was dehydrated. She has some diarrhea. In view of her dehydration and diarrhea, she was admittedand received IV fluids. She did improve. There was evidence of malnutrition. In view of that, a nutrition consult was placed. When I saw her on 01/28/2020 she was a bit confused. Her memory is poor. She blames this on her prophylactic cranial radiation. In view of her symptomatology I did order a brain MRI scan. On 01/29/2020, the patient was seen in her hospital room. She seemed fairly comfortable. She complained again of poor memory. She also complains of lumps on her scalp. She felt that I should prescribe a cream for these lumps. I am not sure what these represent. These could just be some normal anatomical features. It is not impossible that they represent metastatic disease to the skull, but I was not convinced that these should be further evaluated at this time. I told the patient that she canuse the cream and I just mentioned to the nurse to give her some cream to put on her scalp. The patient is still alopecic due to the previous radiation therapy and chemotherapy. Her physical exam on 01/29/2020 was otherwise unremarkable. She did appear somewhat weak, but she was sitting in a chair. I did not really find any new significant changes. Her lab work on 01/29/2020 showed a white count of 6,600, hemoglobin 10.9, platelet count 260,000. Differential count normal. C hemistries, glucose 102. Sodium 133, potassium 3.4. Other values were all within normal limits. B12 level 411. I did obtain evening cortisol on the which was 3.1 mg/dL. The morning cortisol on 01/29/2020 was 7 mg/dL. I felt that these were normal. This was reassuring that she did not have autoimmune hypoadrenalism. I did order an MRI scan of the brain. This was done on 01/29/2020 and showed: 1. No acute infarct. 2. No abnormal enhancement to suggest metastatic disease. 3. Encephalomalacic changes in the left frontal lobe laterally, stable likely from prior injury or infarct. 4. Multiple foci of T2 flair signal, hyperintensity seen throughout the supratentorial/periventricular white matter. This was felt nonspecific mass, but most likely represents the sequela of chronic small vessel ischemic changes. 5. Mild mucosal thickening in the paranasal sinuses. 6. Mild generalized parenchymal volume loss. None of these changes were really significant. The scalp did not show any significant abnormalities. The patient told me that she would like not to be treated for a while. I certainly will respect herdecision. I do not think that this is the most helpful decision for her cancer. The addition of atezolizumab to the chemoradiation definitely has prolonged remission time and helped patients with stage III small cell carcinoma of the lung. Again, nevertheless we will have to respect her decision. She was due for a dose of atezolizumab on 01/29/2020. Obviously we cannot administer that in the hospital. This has to be administered as an outpatient. I will let medicine take care of the patient and follow to see how she evolves. She might eventually change her mind, but for the time being, she will not be treated. As far as disposition, it seems that she might do better in a protected environment such as a senior care, but she may not accept that. We will see what the final decision is. Receipt: [id number] [facility] ID: [id number] CRAYON GRADER CRAYON GRADER Dictated # [id number] Review of Systems Constitutional: Positive for fatigue. Negative for appetite change, chills, diaphoresis, fever and unexpected weight change. HENT: Negative. Eyes: Negative. Respiratory: Positive for shortness of breath (Comfortable with O2 at 2 L/min). Negative for cough and wheezing. Cardiovascular: Negative. Gastrointestinal: Negative. Endocrine: Negative. Genitourinary: Negative. Skin: Negative. Neurological: Positive for extremity weakness. Hematological: Negative. Psychiatric/Behavioral: Positive for confusion. Physical / Results Current Vital Signs Temp: 98.5 F (36.9 C) BP: 161/78 Weight: 70.1 kg (154 lb 8 oz) SpO2: 99 % Resp: 21 Pulse: 81 O2 Device: NC - no humidity O2 Flow Rate (L/min): 2 l/min Pain Ratin Maximum Temperatures (last 24 hours) Temperature Maximum Max Temp 99.3 F (37.4 C) Intake and Output: 01/27 0700 - 01/28 0659 In: 319 [Oral:225] Out: 700 [Urine:700] Physical Exam Constitutional: She appears well-developed and well-nourished. No distress. HENT: Head: Normocephalic. Mouth/Throat: Oropharynx is clear and moist. No oropharyngeal exudate. Eyes: Pupils are equal, round, and reactive to light. Conjunctivae are normal. No scleral icterus. Neck: Normal range of motion. No tracheal deviation present. No thyromegaly present. Cardiovascular: Normal rate, regular rhythm and normal heart sounds. No murmur heard. Pulmonary/Chest: Effort normal and breath sounds normal. No stridor. No respiratory distress. She has no wheezes. She has no rales. She exhibits no tenderness. Abdominal: Soft. Bowel sounds are normal. She exhibits no distension and no mass. There is no tenderness. There is no rebound and no guarding. No hernia. Musculoskeletal: Normal range of motion. She exhibits no edema, tenderness or deformity. Lymphadenopathy: She has no cervical adenopathy. Neurological: She is alert. No cranial nerve deficit. Coordination normal. Skin: Skin is warm and dry. No rash noted. She is not diaphoretic. No erythema. No pallor. Psychiatric: She has a normal mood and affect. Poor memory. Results for ANGELA LARSON ( ) as of 01/30/2020 09:47 Ref. Range 01/29/2020 06:28 WBC Latest Ref Range: 4.0 - 11.0 K/uL 6.6 RBC Latest Ref Range: 3.80 - 5.30 M/uL 3.80 Hemoglobin Latest Ref Range: 11.5 - 15.8 g/dL 10.9 (L) Hematocrit Latest Ref Range: 35.0 - 45.0 % 34.7 (L) MCV Latest Ref Range: 80.0 - 98.0 fL 91.3 MCH Latest Ref Range: 25.5 - 34.0 pg 28.7 MCHC Latest Ref Range: 31.5 - 36.5 g/dL 31.4 (L) RDW-CV Latest Ref Range: 11.5 - 15.5 % 13.5 RDW-SD Latest Ref Range: 35.5 - 50.0 fl 44.9 Platelet Count Latest Ref Range: 140 - 400 K/uL 260 MPV Latest Ref Range: 8.5 - 12.0 fL 8.1 (L) Seg Neut Absolute Latest Ref Range: 1.8 - 8.0 K/uL 4.9 Lymphocytes Absolute Latest Ref Range: 0.8 - 4.1 K/uL 1.0 Monocytes Absolute Latest Ref Range: 0.0 - 1.0 K/uL 0.4 Eosinophils Absolute Latest Ref Range: 0.0 - 0.7 K/uL 0.2 Basophil Absolute Latest Ref Range: 0.0 - 0.2 K/uL 0.0 Immature Granulocyte Absolute Latest Ref Range: 0.00 - 0.06 K/uL 0.01 Neutrophils Percent Latest Units: % 74.4 Neutrophils Abs. (Segs and Bands) Latest Units: /uL 4,900 Lymphocytes Percent Latest Units: % 15.4 Monocytes Percent Latest Units: % 6.2 Immature Granulocyte Percent Latest Units: % 0.2 Eosinophils Percent Latest Units: % 3.5 Basophil Percent Latest Units: % 0.3 Nucleated RBC Latest Units: /100 WBC's 0 Glucose Latest Ref Range: 70 - 100 mg/dL 102 (H) Sodium Latest Ref Range: 135 - 145 meq/L 133 (L) Potassium Latest Ref Range: 3.5 - 5.3 meq/L 3.4 (L) Chloride Latest Ref Range: 99 - 110 meq/L 102 CO2 Latest Ref Range: 20 - 29 meq/L 23 Anion Gap with K Latest Ref Range: 6 - 20 meq/L 11 BUN Latest Ref Range: 6 - 22 mg/dL 9 Creatinine Latest Ref Range: 0.60 - 1.10 mg/dL 0.79 BUN/Creatinine Ratio Latest Ref Range: 10.0 - 25.0 11.4 Calcium Latest Ref Range: 8.5 - 10.5 mg/dL 9.3 Corrected Calcium Latest Ref Range: 8.5 - 10.5 mg/dL 9.4 Phosphorus Latest Ref Range: 2.5 - 4.5 mg/dL 3.2 Magnesium Latest Ref Range: 1.8 - 2.4 mg/dL 2.0 Albumin Latest Ref Range: 3.5 - 5.0 g/dL 3.9 eGFR Latest Ref Range: >=60 mL/min/1.73m2 86 eGFR Non- Latest Ref Range: >=60 mL/min/1.73m2 71 Protime Latest Ref Range: 12.0 - 14.5 secs 14.3 INR Latest Ref Range: 2.0 - 3.5 1.1 (L) Vitamin B12 Latest Ref Range: 200-1,000 pg/mL 411 Cortisol AM Latest Ref Range: 5.0 - 22.0 ug/dL 7.0 EXAM: MRI BRAIN WITH AND WITHOUT CONTRAST INDICATION: pt with lung cancer & AMS. TECHNIQUE: MRI of the brain performed without and following IV contrast. COMPARISON(S): 11/05/2019. FINDINGS: The pituitary gland, suprasellar cistern, corpus callosum, and posterior fossa appear to be within normal limits. Bone marrow signal intensity appears to be within normal limits. No abnormal restricteddiffusion. There is no abnormal enhancement. Encephalomalacic changes in the left frontal lobe laterally likely from prior infarct, stable. Scattered multiple foci of FLAIR signal hyperintensity throughout the supratentorial white matter as well as involvement along the right side of the crista. This issimilar to the previous study dated 10/18/2019. No extra-axial fluid collection or mass. Low signal onsusceptibility- weighted imaging along left frontal lobe encephalomalacic changes likely related to old blood products or calcification. The ventricular system is unremarkable. Mild mucosal thickening of paranasal sinuses. Small amount of fluid in bilateral mastoid air cells. IMPRESSION: 1. No acute infarct. 2. No abnormal enhancement to suggest metastatic disease. 3. Encephalomalacic changes in the left frontal lobe laterally, stable. Likely from prior injury or infarct. 4. Multiple foci of T2 FLAIR signal hyperintensity seen throughout the supratentorial/periventricular white matter. This is nonspecific but most likely reflects the sequela of chronic small vessel ischemic disease. 5. Mild mucosal thickening of the paranasal sinuses. 6. Mild generalized parenchymal volume loss. [facility] Charles Coreas MD - 01/29/2020 1:00 AM [facility] PATIENT NAME: ANGELA LARSON DATE OF SERVICE: 01/29/2020 AMERICO: [id number] Ms. Angela Larson is a 74-year-old female admitted on 01/27/2020 with a poor oral intake and generalized weakness. IMPRESSION AND PLAN: 1. Generalized weakness. The patient is significantly weak and required a lot of help. The physical therapy and occupational therapy have evaluated and recommended a custodial home. No clear underlying organic etiology identified for generalized weakness. No evidence of infection is noted. 2. Small cell carcinoma of the right lung. The patient has been following up with hematology/oncology as outpatient. She received atezolizumab 3 weeks ago. Otherwise, the CT scan of the chest didnot show significant changes. He had radiation treatment done in the past as well. 3. Moderate protein calorie malnutrition. Continue with the nutritional supplements. 4. Poor appetite and poor calorie intake secondary to lung cancer and chemotherapy. The patient's oral intake is minimal in the last few days and slightly better since admission. Currently gettingMegace and Marinol. Otherwise, the cosyntropin test is negative. 5. Hypothyroidism. TSH is slightly elevated. We will increase the levothyroxine to 88 mcg dailyand will need a repeat TSH in 4 to 6 weeks. 6. DVT prophylaxis with Lovenox. 7. History of depression, on Prozac. 8. Worsening confusion and change in personality. Rule out any intracranial problems. The daughter mentioned that patient has some personality change and easily forgetful. We will get MRI of the brain to rule out any intracranial lesions, particularly the frontal regions causing any personality changes. 9. History of COPD. Looking stable. Continue with the Breo Ellipta and albuterol nebulizations as necessary. SUBJECTIVE: Patient is feeling okay. Still significantly weak and oral intake is only slightly better. Otherwise, the daughter noticed some personality changes. No other acute events happened overnight. REVIEW OF SYSTEMS: GENERAL: Generalized weakness. No fevers or chills. RESPIRATORY: No cough. CARDIOVASCULAR: No chest pain. GASTROINTESTINAL: No nausea or vomiting. EXTREMITIES: Generalized weakness. VITAL SIGNS: Reviewed. MEDICATIONS: Reviewed and adjusted. LABS AND IMAGING STUDIES: Reviewed. PHYSICAL EXAMINATION: GENERAL: Elderly female is seen sitting comfortable in chair, not in obvious distress. CARDIOVASCULAR SYSTEM: S1, S2 heard. No murmurs or gallops. LUNGS: Air entry is present on both sides. No wheezing or creps. ABDOMEN: Soft, flat, nontender. No organomegaly. CENTRAL NERVOUS SYSTEM: Awake, alert, oriented to time, place, person. EXTREMITIES: No pedal edema. Moving all her limbs. DERMATOLOGICAL: Warm and moist skin noted. TIME: The total time spent on taking care of the patient is more than 35 minutes with more than 50%spent on coordination of the care. Charles Coreas MD Receipt: [id number] Trans ID: [id number] CRAYON GRADER CST Charles Mcdermott MD - 01/28/2020 1:52 PM CDTPt is seen & examined. Admitted this am with weakness, poor oral intake. No clear etiology identified. CT chest looks same. Will continue with joslyn Alvarezamp; dave maharaj for Oncology input. documented in this encounter Plan of Treatment Date Type Specialty Care Team Description 02/15/2020 Office Visit Oncology Tejinder Wise MD [address] [place] [address] [phone] 02/29/2020 Office Visit Radiation Oncology Pineda Albarran MD [address] [place] [address] [phone] 03/12/2020 Appointment Radiology Minnie Watson, [facility] [employer] [address] [place], [place] [id number] 03/12/2020 Office Visit Interventional Radiology Minnie Watson, [facility] [address] [place], [place] [id number] Name Type Priority Associated Diagnoses Date/Ti me XRAY CHEST PORTABLE - Imaging Routine 2019 9:27 AM CDT Name Type Priority Associated Diagnoses Order S chedule XRAY CHEST PORTABLE - Imaging Routine today for 1 Occurrences sta rting 01/31/2020 unti l 01/31/2020 COMPLETE BLOOD COUNT Lab Routine Malignant neoplasm E xpected: 01/31/2020 WITH DIFFERENTIAL metastatic to (Approxim ate), intrathoracic lymph Expires: 03/02/2021 node (HCC) 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) History of DVT (deep vein thrombosis) Small cell carcinoma of lung (HCC) COMPREHENSIVE METABOLIC Lab Routine Malignant neoplas m Expected: 01/31/2020 PANEL metastatic to (Approximate), intrathoracic lymph Expires: 03/02/2021 node (HCC) 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) History of DVT (deep vein thrombosis) Small cell carcinoma of lung (HCC) LDH TOTAL Lab Routine Malignant neoplasm Expected: 01/31/2020 metastatic to (Approximate), intrathoracic lymph Expires: 03/02/2021 node (HCC) 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 Cohen documented as of this encounter Procedures Procedure Name Priority Date/Time Associated Comments Diagnosis LAB ONLY-COMPLETE BLOOD Routine 01/31/2020 7:27 Results for this COUNT WITH DIFFERENTIAL AM CDT proc edure are in the results section. MAGNESIUM Routine 01/31/2020 7:27 Results for this AM CDT procedure are i n the results section. RENAL FUNCTION PANEL Routine 01/31/2020 7:27 Res ults for this AM CDT procedure are i n the results section. LAB ONLY-COMPLETE BLOOD Routine 01/31/2020 7:27 Results for this COUNT WITH DIFFERENTIAL AM CDT proc edure are in the results section. ELECTROENCEPHALOGRAM Routine 01/30/2020 2:30 Res ults for this PM CDT procedure are i n the results section. SARS-COV-2 RNA, QUALITATIVE STAT 01/30/2020 10:01 Results for this REAL-TIME RT-PCR AM CDT procedure a re in the results section. MRI BRAIN WITH AND WITHOUT Routine 01/29/2020 6:48 Results for this CONTRAST PM CDT procedure are i n the results section. CORTROSYN STIMULATION-60 Routine 01/29/2020 1:55 Results for this MINUTE POST DOSE PM CDT procedure a re in the results section. CORTROSYN PAYTON 01/29/2020 10:53 Results for this STIMULATION-BASELINE AM CDT procedu re are in the results section. LAB ONLY-COMPLETE BLOOD Routine 01/29/2020 6:28 Results for this COUNT WITH DIFFERENTIAL AM CDT proc edure are in the results section. PROTIME/INR Routine 01/29/2020 6:28 Results for this AM CDT procedure are i n the results section. VITAMIN B12 Routine 01/29/2020 6:28 Results for this AM CDT procedure are i n the results section. CORTISOL TOTAL, A.M. Routine 01/29/2020 6:28 Res ults for this AM CDT procedure are i n the results section. MAGNESIUM Routine 01/29/2020 6:28 Results for this AM CDT procedure are i n the results section. RENAL FUNCTION PANEL Routine 01/29/2020 6:28 Res ults for this AM CDT procedure are i n the results section. LAB ONLY-COMPLETE BLOOD Routine 01/29/2020 6:28 Results for this COUNT WITH DIFFERENTIAL AM CDT proc edure are in the results section. CORTISOL TOTAL, P.M. Routine 01/28/2020 7:11 Res ults for this PM CDT procedure are i n the results section. PROTIME/INR Routine 01/28/2020 12:07 Results for this PM CDT procedure are i n the results section. CT CHEST WITHOUT CONTRAST Routine 01/28/2020 8:37 Results for this AM CDT procedure are i n the results section. TSH REFLEX STAT 01/28/2020 4:20 Results for this AM CDT procedure are i n the results section. FREE T4 STAT 01/28/2020 4:20 Results for this AM CDT procedure are i n the results section. LAB ONLY-URINE MICROSCOPIC STAT 01/27/2020 11:03 Results for this REFLEX PM CDT procedure are i n the results section. URINE DIP, REFLEX TO STAT 01/27/2020 11:03 Res ults for this MICROSCOPIC, REFLEX TO PM CDT proce dure are in CULTURE the results section. XRAY CHEST PA AND LATERAL PAYTON 01/27/2020 10:44 Results for this PM CDT procedure are i n the results section. EKG STAT 01/27/2020 10:26 Results for this PM CDT procedure are i n the results section. EKG Routine 01/27/2020 10:24 Results for this PM CDT procedure are i n the results section. LACTIC ACID REFLEX TO STAT 01/27/2020 10:04 Re sults for this REPEAT PM CDT procedure are i n the results section. LAB ONLY-COMPLETE BLOOD STAT 01/27/2020 10:04 Results for this COUNT WITH DIFFERENTIAL PM CDT proc edure are in the results section. PROTIME/INR STAT 01/27/2020 10:04 Results for this PM CDT procedure are i n the results section. MAGNESIUM STAT 01/27/2020 10:04 Results for this PM CDT procedure are i n the results section. LIPASE STAT 01/27/2020 10:04 Results for this PM CDT procedure are i n the results section. COMPREHENSIVE METABOLIC STAT 01/27/2020 10:04 Results for this PANEL PM CDT procedure are i n the results section. LAB ONLY-COMPLETE BLOOD STAT 01/27/2020 10:04 Results for this COUNT WITH DIFFERENTIAL PM CDT proc edure are in the results section. BRAIN NATRIURETIC PEPTIDE STAT 01/27/2020 10:04 Results for this PM CDT procedure are i n the results section. documented in this encounter Results LAB ONLY-COMPLETE BLOOD COUNT WITH DIFFERENTIAL (01/31/2020 7:27 AM CDT) Pathologist Sig nature WBC 5.9 4.0 - 11.0 K/uL [facility] RBC 3.99 3.80 - 5.30 [facility] M/uL [facility]IN[facility] Hemoglobin 11.3 (L) 11.5 - 15.8 [facility] g/dL [facility] Hematocrit 35.7 35.0 - 45.0 % [facility] MCV 89.5 80.0 - 98.0 fL [facility] MCH 28.3 25.5 - 34.0 pg [facility] MCHC 31.7 31.5 - 36.5 [facility] g/dL [facility] RDW-CV 13.7 11.5 - 15.5 % [facility] RDW-SD 45.1 35.5 - 50.0 fl [facility] Platelet Count 253 140 - 400 K/uL [facility] MPV 8.1 (L) 8.5 - 12.0 fL [facility] Seg Neut Absolute 4.2 1.8 - 8.0 K/uL [facility] Lymphocytes Absolute 1.1 0.8 - 4.1 K/uL [facility] Monocytes Absolute 0.5 0.0 - 1.0 K/uL [facility] Eosinophils Absolute 0.2 0.0 - 0.7 K/uL [facility] Basophil Absolute 0.0 0.0 - 0.2 K/uL [facility] Immature Granulocyte 0.01 0.00 - 0.06 [facility] Absolute K/uL CLINIC Neutrophils Abs. 4,200 /uL [facility] (Segs and Bands) [facility] Neutrophils Percent 70.8 % [facility] Lymphocytes Percent 17.7 % [facility] Monocytes Percent 7.6 % [facility] Immature Granulocyte 0.2 % [facility] Percent [facility]INIC Eosinophils Percent 3.2 % [facility] Basophil Percent 0.5 % [facility] Nucleated RBC 0 /100 WBC's [facility] Specimen Blood Performing Organization Address [facility] Phone Number [address] [phone] MAGNESIUM (01/31/2020 7:27 AM CDT) Pathologist Sig nature Magnesium 1.8 1.8 - 2.4 mg/dL [facility] Specimen Blood Performing Organization Address [facility] Phone Number [address] [phone] RENAL FUNCTION PANEL (01/31/2020 7:27 AM CDT) Pathologist Sig nature Glucose 97 70 - 100 mg/dL [facility] BUN 11 6 - 22 mg/dL [facility] Creatinine 0.81 0.60 - 1.10 [facility] mg/dL [facility] BUN/Creatinine Ratio 13.6 10.0 - 25.0 [facility] Sodium 134 (L) 135 - 145 meq/L [facility] Potassium 3.7 3.5 - 5.3 meq/L [facility] Chloride 101 99 - 110 meq/L [facility] CO2 28 20 - 29 meq/L [facility] Anion Gap with K 9 6 - 20 meq/L [facility] Calcium 9.4 8.5 - 10.5 mg/dL [facility] Phosphorus 3.8 2.5 - 4.5 mg/dL [facility] Albumin 3.9 3.5 - 5.0 g/dL [facility] Corrected Calcium 9.5 8.5 - 10.5 mg/dL [facility] Age 74 Years [facility] eGFR Non- 69 >=60 [facility] Uzbek mL/min/1.73m2 CLINIC eGFR 84 >=60 [facility] mL/min/1.73m2 [facility] Specimen Blood Performing Organization Address City/[facility] Phone Number [facility] [address] [place] [address] ELECTROENCEPHALOGRAM [facility]; Routine with Video; 30 Minutes (01/30/2020 2:30 PM CDT) Narrative Performed At Lily Gonzales MD 01/30/20 202:31 PM [facility] ROUTINE EEG Identifying Information: Name: Angela Larson : 1945 Interpreting Physician: Lily miller MD Clinical History: Angela Larson is an 74yr female for which a routine EEG was ordered on for further evaluation of alt ered mental status. EEG date: 01/30/20 Technical Summary: 20 channels of continuous EEG were recor ded in a digital format on a patient who is reported to be awake during the recording. The background rhythm consists of 20-40 microvolt activity in the theta frequency range approximately 7 Hz that was maximal over the posterior head regions and reactive to eye opening and closure. During the recording: No focal slowing was seen. No epileptiform discharges or seizure s were detected. The EKG monitoring channel did not detec t any significant rhythm abnormalities. EEG Interpretation: This EEG is abnormal due to the presence of: 1) Mild generalized slowing. - This is a non-specific finding but is consistent with a generalized disturbance of cerebral func tion. It may be seen in a variety of conditions, such as toxic, me tabolic, post-anoxic, multi-focal or diffuse structural abnorm alities. - No electrographic seizures or non-conv ulsive status epilepticus were seen during this recording. Clinical correlation is recommended. Performing Organization Address City/State/Zipcode Phone Number [facility] [employer] [place] SARS-COV-2 RNA, QUALITATIVE REAL-TIME RT-PCR (01/30/2020 10:01 AM CDT) SARS CoV RNA, RT Not Detected Not Detected [facility] Specimen Respiratory Narrative Performed At This test was performed by polymerase chain reaction ( PCR) [facility] on the [employer] MDX instrument. This assay is for in vitro diagnostic use under FDA Emergency Use Authorization only. Optimal performance of this test requires appropriate specimen collection, storage, and transport to the [facility] site. Detection of SARS-CoV-2 RNA may be affected by sample collection methods, patient factors (eg, presence of symptoms), and/or stage of infection. False-negative results may arise from degradation of v iral RNA during shipping/storage. Results should be interpreted by a trained professiona toña in conjunction with the patient s history and clinical signs and symptoms, and epidemiological risk factors. Negative results do not preclude infection with the SARS-CoV-2 virus and should not be the sole basis of p atient treatment/management or public health decision. Follow up testing should be performed according to the current [place] recommendations. Performing Organization Address City/State/Zipcode Phone Number [facility] [address] [place] [address] [phone] MRI BRAIN WITH AND WITHOUT CONTRAST (01/29/2020 6:48 PM CDT) Specimen Narrative Performed At [facility] Patient Name: ANGELA LARSON Date of :1945 Procedure: MRI BRAIN WITH AND WITHOUT C ONTRAST Date of Service: 01/29/2020 EXAM: MRI BRAIN WITH AND WITHOUT CONTRAS T INDICATION: pt with lung cancer & AMS. TECHNIQUE: MRI of the brain performed wi thout and following IV contrast. COMPARISON(S): 11/05/2019. FINDINGS: The pituitary gland, suprasellar cistern, corpus callo sum, and posterior fossa appear to be within normal limits. Bone marrow s ignal intensity appears to be within normal limits. No abnormal restri cted diffusion. There is no abnormal enhancement. Encephalomalacic jorge nges in the left frontal lobe laterally likely from prior infarct, stab le. Scattered multiple foci of FLAIR signal hyperintensity throughou t the supratentorial white matter as well as involvement azael ng the right side of the crista. This is similar to the previous study colleen ed 10/18/2019. No extra-axial fluid collection or mass. Low signal on susceptibility-weighted imaging along left frontal lob e encephalomalacic changes likely related to old blood products or calcif ication. The ventricular system is unremarkable. Mild mucosal thick ening of paranasal sinuses. Small amount of fluid in bilate ral mastoid air cells. IMPRESSION: 1. No acute infarct. 2. No abnormal enhancement to suggest me tastatic disease. 3. Encephalomalacic changes in the left frontal lobe l aterally, stable. Likely from prior injury or infarct. 4. Multiple foci of T2 FLAIR signal hyperintensity see n throughout the supratentorial/periventricular white matter. This is n onspecific but most likely reflects the sequela of chronic small vess el ischemic disease. 5. Mild mucosal thickening of the parana dagoberto sinuses. 6. Mild generalized parenchymal volume l oss. Edited by: jennifer 01/29/2020 8:59 PM CDT Finalized by: Sudeep Baldwin MD on 2019 9:02 PM CDT Patient/Procedure Information: [facility] MRN/[place]: [id number] Order Number: [id number] Accession Number: [id number] Ordering Provider: CHARLES COREAS Authorizing Provider: HCARLES COREAS Procedure Note Interface, Radiantres - 01/29/2020 9:04 PM CDT Patient Name: ANGELA LARSNO Date of : 1945 Procedure: MRI BRAIN WITH AND WITHOUT C ONTRAST Date of Service: 01/29/2020 EXAM: MRI BRAIN WITH AND WITHOUT CONTRAS T INDICATION: pt with lung cancer & AMS. TECHNIQUE: MRI of the brain performed wi thout and following IV contrast. COMPARISON(S): 11/05/2019. FINDINGS: The pituitary gland, suprasellar cistern , corpus callosum, and posterior fossa appear to be within normal limits. Bone marrow signal intensity appears to be within normal limits. No abnormal restricted diffusion. There is no abnormal enhancement. Enceph alomalacic changes in the left frontal lobe laterally likely from prior infarct, stable. Scattered multiple foci of FLAIR signal hyperintensity throughout the supratentorial white matter as well as involvement sara g the right side of the crista. This is similar to the previous study dated 10/18/2019. No extra-axial fluid collection or mass. Low signal on susceptibility-weighted imaging along left frontal lobe encephalomalacic fernandez es likely related to old blood products or calcification. The ventricular system is unremarkable. Mild mucosal thickening of paranasal sinuses. Small amount of fluid in bilateral mastoid air cells. IMPRESSION: 1. No acute infarct. 2. No abnormal enhancement to suggest me tastatic disease. 3. Encephalomalacic changes in the left frontal lobe laterally, stable. Likely from prior injury or infarct. 4. Multiple foci of T2 FLAIR signal hype rintensity seen throughout the supratentorial/periventricular white matter. This is nonspecific but most likely reflects the sequela of chronic small vessel ischemic disease. 5. Mild mucosal thickening of the parana dagoberto sinuses. 6. Mild generalized parenchymal volume l oss. Edited by: jennifer 01/29/2020 8:59 PM CDT Finalized by: Sudeep Baldwin MD on 2019 9:02 PM CDT Patient/Procedure Information: [facility] MRN/[place]: [id number] Order Number: [id number] Accession Number: [id number] Ordering Provider: CHARLES COREAS Authorizing Provider: CHARLES COREAS Performing Organization Address [facility] Phone Number [id number] CORTROSYN STIMULATION-60 MINUTE POST DOSE (01/29/2020 1:55 PM CDT) Pathologist Sig nature Cortisol Stim 60 min 24.3 ug/dL [facility] CLI MARIANELA post dose Specimen Blood Performing Organization Address [facility] Phone Number [address] [address] CORTROSYN STIMULATION-BASELINE (01/29/2020 10:53 AM CDT) Pathologist Sig nature Cortisol Stim Baseline 7.0 ug/dL [facility] C LINIC Specimen Blood Performing Organization Address [facility] Phone Number [address] [address] LAB ONLY-COMPLETE BLOOD COUNT WITH DIFFERENTIAL (01/29/2020 6:28 AM CDT) Pathologist Sig nature WBC 6.6 4.0 - 11.0 K/uL [facility] RBC 3.80 3.80 - 5.30 [facility] M/uL CLINIC Hemoglobin 10.9 (L) 11.5 - 15.8 [facility] g/dL [facility] Hematocrit 34.7 (L) 35.0 - 45.0 % [facility] MCV 91.3 80.0 - 98.0 fL [facility] MCH 28.7 25.5 - 34.0 pg [facility] MCHC 31.4 (L) 31.5 - 36.5 [facility] g/dL [facility] RDW-CV 13.5 11.5 - 15.5 % [facility] RDW-SD 44.9 35.5 - 50.0 [facility] Platelet Count 260 140 - 400 K/uL [facility] MPV 8.1 (L) 8.5 - 12.0 fL [facility] Seg Neut Absolute 4.9 1.8 - 8.0 K/uL [facility] Lymphocytes Absolute 1.0 0.8 - 4.1 K/uL [facility] Monocytes Absolute 0.4 0.0 - 1.0 K/uL [facility] Eosinophils Absolute 0.2 0.0 - 0.7 K/uL [facility] Basophil Absolute 0.0 0.0 - 0.2 K/uL [facility] Immature Granulocyte 0.01 0.00 - 0.06 [facility] Absolute K/uL CLINIC Neutrophils Abs. 4,900 /uL [facility] (Segs and Bands) [facility] Neutrophils Percent 74.4 % [facility] Lymphocytes Percent 15.4 % [facility] Monocytes Percent 6.2 % [facility] Immature Granulocyte 0.2 % [facility] Percent CLINIC Eosinophils Percent 3.5 % [facility] Basophil Percent 0.3 % [facility] Nucleated RBC 0 /100 WBC's [facility] Specimen Blood Performing Organization Address [facility] Phone Number [address] [address] [phone] VITAMIN B12 (01/29/2020 6:28 AM CDT) Pathologist Sig nature Vitamin B12 411 200-1,000 pg/mL [facility] Specimen Blood Performing Organization Address [facility] Phone Number [address] [address] CORTISOL TOTAL A.M. (01/29/2020 6:28 AM CDT) Pathologist Sig nature Cortisol AM 7.0 5.0 - 22.0 ug/dL [facility] Specimen Blood Performing Organization Address [facility] Phone Number [address] [address] [phone] MAGNESIUM (01/29/2020 6:28 AM CDT) Pathologist Sig nature Magnesium 2.0 1.8 - 2.4 mg/dL [facility] Specimen Blood Performing Organization Address [facility] Phone Number [address] [address] [phone] RENAL FUNCTION PANEL (01/29/2020 6:28 AM CDT) Pathologist Sig nature Glucose 102 (H) 70 - 100 mg/dL [facility] BUN 9 6 - 22 mg/dL [facility] Creatinine 0.79 0.60 - 1.10 [facility] mg/[facility] BUN/Creatinine Ratio 11.4 10.0 - 25.0 [facility] Sodium 133 (L) 135 - 145 meq/L [facility] Potassium 3.4 (L) 3.5 - 5.3 meq/L [facility] Chloride 102 99 - 110 meq/L [facility] CO2 23 20 - 29 meq/L [facility] Anion Gap with K 11 6 - 20 meq/L [facility] Calcium 9.3 8.5 - 10.5 mg/dL [facility] Phosphorus 3.2 2.5 - 4.5 mg/dL [facility] Albumin 3.9 3.5 - 5.0 g/dL [facility] Corrected Calcium 9.4 8.5 - 10.5 mg/dL [facility] Age 74 Years [facility] eGFR Non- 71 >=60 [facility] Uzbek mL/min/1.73m2 [facility] eGFR 86 >=60 [facility] mL/min/1.73m2 CLINIC Specimen Blood Performing Organization Address City/[facility] Phone Number [address] [address] PROTIME/INR (01/29/2020 6:28 AM CDT) Pathologist Sig nature Protime 14.3 12.0 - 14.5 secs [facility] INR 1.1 (L) 2.0 - 3.5 [facility] Specimen Blood Narrative Performed At Normal INR reference range (patients not on oral [facility] anticoagulants)0.9-1.1. INR Standard Intensity = (2.0 - 3.0) INR Higher Intensity = (2.5 - 3.5) Performing Organization Address [facility] Phone Number [address] [address] CORTISOL TOTAL, P.M. (01/28/2020 7:11 PM CDT) Pathologist Sig nature Cortisol PM 3.1 3.0 - 15.0 ug/dL [facility] Specimen Blood Performing Organization Address [facility] Phone Number [address] [address] [phone] PROTIME/INR (01/28/2020 12:07 PM CDT) Pathologist Sig nature Protime 14.9 (H) 12.0 - 14.5 secs [facility] INR 1.2 (L) 2.0 - 3.5 [facility] Specimen Blood Narrative Performed At Normal INR reference range (patients not on oral [facility] anticoagulants)0.9-1.1. INR Standard Intensity = (2.0 - 3.0) INR Higher Intensity = (2.5 - 3.5) Performing Organization Address [facility] Phone Number [address] [address] [address] CHEST WITHOUT CONTRAST (01/28/2020 8:37 AM CDT) Specimen Narrative Performed At PS360 Patient Name: ANGELA LARSON Date of :1945 Procedure: CT CHEST WITHOUT CONTRAST Date of Service: 01/28/2020 EXAM: CT CHEST WITHOUT CONTRAST INDICATION:Small cell lung cancer, monit or COMPARISON(S): Plain films previous day, prior PET 09/[address] 05/25/2019 TECHNIQUE: CT chest without contrast with coronal and sagittal reformats. MIP reformats. FINDINGS: Lung: Somewhat ill-defined masslike opacity left upper lobe at location of patient's known cancer with posttreatment changes i s present. This also extends towards the left hilum. On axial image the area of ill-defined mass somewhat masslike density is present measuring 2.7 x 1.3 cm and on prior this measured approximately 2 x 1. 6 cm. Interval change could be posttreatment changes given the overal l appearance with recurrence a possible but less likely consideration. O therwise scattered areas of probable atelectasis and/or eleazar e scarring. Large airways: Airway is patent. Vessels: Evaluation limited without cont rast. Heart: No pericardial effusion. Stable lipomatous hype rtrophy of the intra-atrial septum Lymph Nodes: Improved mediastinal lymphadenopathy. Amber or precarinal lymph node measured 1.8 cm short axis di mension currently 0.8 cm. IMPRESSION: 1.Ill-defined masslike opacity left upper lobe ext ending towards left hilum minimal change overall probably posttreatme nt changes at location of patient's known cancer. 2. Improved mediastinal lymphadenopathy. Finalized by: Jarad Fu MD on 01/28/2020 10:58 AM CDT Patient/Procedure Information: [facility] MRN/[place]: [id number] Order Number: [id number] Accession Number: [id number] Ordering Provider: JULES RODRIGUEZ Authorizing Provider: JULES RODRIGUEZ Procedure Note Interface, Radiantres - 01/28/2020 11:00 AM CDT Patient Name: ANGELA LARSON Date of : 1945 Procedure: CT CHEST WITHOUT CONTRAST Date of Service: 01/28/2020 EXAM: CT CHEST WITHOUT CONTRAST INDICATION:Small cell lung cancer, monit or COMPARISON(S): Plain films previous day, prior PET 10/12/[address] 05/25/2019 TECHNIQUE: CT chest without contrast wit h coronal and sagittal reformats. MIP reformats. FINDINGS: Lung: Somewhat ill-defined masslike opac ity left upper lobe at location of patient's known cancer with posttreatment changes is present. This also extends towards the left hilum. On axial image the area of ill-defined mass somewhat masslike densi ty is present measuring 2.7 x 1.3 cm and on prior this measured approximately 2 x 1.6 cm. Interval change could be posttreatment changes given the overall appearance with recurrence a possible but less likely co nsideration. Otherwise scattered areas of probable atelectasis and/or some scarring. Large airways: Airway is patent. Vessels: Evaluation limited without cont rast. Heart: No pericardial effusion. Stable l ipomatous hypertrophy of the intra- atrial septum Lymph Nodes: Improved mediastinal lympha denopathy. Prior precarinal lymph node measured 1.8 cm short axis dimension currently 0.8 cm. IMPRESSION: 1. Ill-defined masslike opacity left up per lobe extending towards left hilum minimal change overall probably posttreatment changes at location of patient's known cancer. 2. Improved mediastinal lymphadenopathy. Finalized by: Jarad Fu MD on 01/28/2020 10:58 AM CDT Patient/Procedure Information: [facility] MRN/[place]: [id number] Order Number: [id number] Accession Number: [id number] Ordering Provider: JULES RODRIGUEZ Authorizing Provider: JULES RODRIGUEZ Performing Organization Address [facility]/Zipcode Phone Number [id number] FREE T4 (01/28/2020 4:20 AM CDT) Pathologist Sig nature T4 Free 1.0 0.7 - 1.5 ng/dL [facility] Specimen Blood Performing Organization Address [facility] Phone Number [address] [address] TSH REFLEX (01/28/2020 4:20 AM CDT) Pathologist Sig nature TSH 6.75 (H) 0.40 - 5.00 uIU/mL [facility] CLINI C Specimen Blood Performing Organization Address [facility] Phone Number [address] [address] [phone] LAB ONLY-URINE MICROSCOPIC REFLEX (01/27/2020 11:03 PM CDT) WBC Urine 0-5 /hpf Negative, 0-5 [place] I-94 /hpf CLINIC RBC Urine 0-2 /hpf Negative, 0-2 [place] I-94 /hpf CLINIC Squamous Epithelial Few (11-20) Negative, Occ [place] [facility] Cells /lpf (0-10) /lpf, Few CLINIC (11-20) /lpf Bacteria Occ (0-10) Negative [place] [address] /hpf (A) CLINIC Urothelial (Trans Rare (0-2) Rare (0-2) /hpf, [place] [facility] Epithelial) Cells /hpf Negative CLINIC Hyaline Cast 0-2 /lpf 0-2 /lpf [place] [address] CLINIC Specimen Urine Narrative Performed At The presence of moderate or many squamous epithelial c ells is [address] suggestive of possible contamination dur ing collection. Culture not performed - reflex criteria not met. Culture is only performed when the urine macroscopic c olor is reported as [place], or whentwoor more of th e following criteria are met: Positive Nitrite, Positive Leukocyte Esterase, WBC's > 5 cells/hpf. Performing Organization Address [facility] Phone Number [address] [place] [address] URINE DIP, REFLEX TO MICROSCOPIC, REFLEX TO CULTURE (01/27/2020 11:03 PM CDT) Color Urine Yellow [place], Dark [place] [address] Yellow, Straw, CLINIC Yellow, Colorless Clarity Urine Clear Clear [address] Glucose Urine Negative Negative [address] Bilirubin Urine Negative Negative [address] Ketones Urine 40 mg/dL (A) Negative, 5 [place] [address] mg/dL, 10 mg/dL CLINIC Specific [place] 1.015 1.002 - 1.[address] Blood Urine Negative Negative [address] PH Urine 6.0 5.0, 5.5, 6.0, [place] [address] 6.5, 7.0, 7.5, CLINIC 8.0 Protein Urine Trace (10-20) Negative [place] [address] mg/dL (A) [facility] Urobilinogen 2 mg/dL (A) < 2 mg/dL [address] Nitrite Negative Negative [address] Leukocyte Esterase Moderate (2+) Negative [place] [address] Urine (A) CLINIC Specimen Urine Narrative Performed At Microscopic Exam Reflexed [address] Performing Organization Address [facility] Phone Number [place] [address] CLINIC [address] [place] [address], [place] [address] XRAY CHEST PA AND LATERAL (01/27/2020 10:44 PM CDT) Specimen Narrative Performed At PS360 Patient Name: ANGELA LARSON Date of :1945 Procedure: XRAY CHEST PA AND LATERAL Date of Service: 01/27/2020 EXAM: XRAY CHEST PA AND LATERAL INDICATION:weakness; weight loss COMPARISON: Multiple prior chest radiographs including but not limited to 11/05/2019. PET/CT dated 06/06/2019. FINDINGS: SUPPORT DEVICES AND SURGICAL MATERIAL: C holecystectomy. CARDIAC/MEDIASTINAL CONTOURS: Normal size for techniqu e. Atheromatous plaques in the aorta. PLEURA/LUNGS: Unchanged chronic platelike opacities in the left upper lung and left costophrenic angle. Bronchial wall thick ening. No pneumothorax or significant pleural fluid. Slight elev ation/eventration of the right hemidiaphragm. ADDITIONAL FINDINGS: Degenerative changes in the axial /appendicular skeleton. IMPRESSION: Chronic left upper lobe subsegmental opacity may repre sent post treatment related changes secondary to radiation and p rior neoplasm. Would be difficult to categorically exclude disease re sidua/recurrence. Continued surveillance is necessary. Finalized by: Praveen Turcios MD on 01/15 3:23 AM CDT Patient/Procedure Information: [facility] MRN/[place]: [id number] Order Number: [id number] Accession Number: [id number] Ordering Provider: KUMAR HOPE Authorizing Provider: KUMAR HOPE Procedure Note Interface, Radiantres - 01/28/2020 3:25 AM CDT Patient Name: ANGELA LARSON Date of : 1945 Procedure: XRAY CHEST PA AND LATERAL Date of Service: 01/27/2020 EXAM: XRAY CHEST PA AND LATERAL INDICATION:weakness; weight loss COMPARISON: Multiple prior chest radiogr aphs including but not limited to 11/05/2019. PET/CT dated 06/06/2019. FINDINGS: SUPPORT DEVICES AND SURGICAL MATERIAL: C holecystectomy. CARDIAC/MEDIASTINAL CONTOURS: Normal siz e for technique. Atheromatous plaques in the aorta. PLEURA/LUNGS: Unchanged chronic platelik e opacities in the left upper lung and left costophrenic angle. Bronchial wall thickening. No pneumothorax or significant pleural fluid. Slight elevation/eventration of the right hemidiaphragm. ADDITIONAL FINDINGS: Degenerative change s in the axial/appendicular skeleton. IMPRESSION: Chronic left upper lobe subsegmental opa city may represent post treatment related changes secondary to radiation and prior neoplasm. Would be difficult to categorically exclude disease residua/recurrence. Continued surveillance is necessary. Finalized by: Praveen Turcios MD on 01/15 3:23 AM CDT Patient/Procedure Information: [facility] MRN/[place]: [id number] Order Number: [id number] Accession Number: [id number] Ordering Provider: KUMAR HOPE Authorizing Provider: KUMAR HOPE Performing Organization Address [facility] Phone Number [id number] EKG (01/27/2020 10:26 PM CDT)Only the most recent of2 resultswithin the time period is included. Pathologist Sig nature EKG WAVEFORM TRACEMASTKANG [place]B Normal sinus rhythm Incomplete right bundle branch block Prolonged QT interval or tu fusion, consider myocardial disease, electrolyte imbalance, or drug effects Abnormal ECG Ventricular Rate: 85 BPM Atrial Rate: 85 BPM P-R Interval: 198 ms QRS Duration: 96 ms Q-T Interval: 426 ms QTc Calculation(Bazett): 506 ms Calculated P [place]: 55 degrees Calculated R [place]: 49 degrees Calculated T [place]: 57 degrees Specimen Narrative Performed At This result has an attachment that is no t available. Performing Organization Address [facility] Phone Number [facility] MAGNES[facility] (01/27/2020 10:04 PM CDT) Pathologist Sig nature Magnesium 1.6 (L) 1.8 - 2.4 mg/dL [address] Specimen Blood Performing Organization Address [facility] Phone Number [address] [place] [address], [place] [address] PROTIME/INR (01/27/2020 10:04 PM CDT) Pathologist Sig nature Protime 14.9 (H) 12.0 - 14.[address] INR 1.2 (L) 2.0 - 3.[address] Specimen Blood Narrative Performed At Normal INR reference range (patients not on oral [address] anticoagulants)0.9-1.1. INR Standard Intensity = (2.0 - 3.0) INR Higher Intensity = (2.5 - 3.5) Performing Organization Address [facility] Phone Number [address] [place] [address] LACTIC ACID REFLEX TO REPEAT (01/27/2020 10:04 PM CDT) Pathologist Sig nature Lactic Acid 0.5 0.5 - 2.2 mmol/L [place] [facility] Specimen Blood Performing Organization Address [facility] Phone Number [place] [address] [facility]IN[facility] [address] [place] [address] BRAIN NATRIURETIC PEPTIDE (01/27/2020 10:04 PM CDT) Pathologist Sig [facility] BNP 66 0 - 100 pg/mL [place] [address] CLINIC Specimen Blood Performing Organization Address [facility] Phone Number [place] [address] [facility]INIC [address] [place] [address] COMPREHENSIVE METABOLIC PANEL (01/27/2020 10:04 PM CDT) Pathologist Sig [facility] Glucose 95 70 - 100 mg/dL [address] BUN 7 6 - 22 mg/dL [address] Creatinine 0.78 0.60 - 1.[address] mg/dL BUN/Creatinine Ratio 9.0 (L) 10.0 - 25.[address] Sodium 133 (L) 135 - 145 meq/L [address] Potassium 3.6 3.5 - 5.3 meq/L [address] Chloride 100 99 - 110 meq/L [address] CO2 21 20 - 29 meq/L [address] Anion Gap with K 16 6 - 20 meq/L [address] Calcium 9.0 8.5 - 10.5 [place] [address] CLINIC mg/dL Protein Total 6.3 6.0 - 8.2 g/dL [address] Albumin 3.7 3.5 - 5.0 g/dL [address] Alkaline Phosphatase 78 30 - 150 U/L [place] [address] CLINIC AST - SGOT 18 0 - 35 U/L [address] ALT - SGPT 16 0 - 55 U/L [place] [address] CLINIC Bilirubin Total 0.4 0.2 - 1.2 mg/dL [place] [address] CLINIC Corrected Calcium 9.2 8.5 - 10.5 [place] [address] CLINIC mg/dL Age 74 Years [place] [address] CLINIC eGFR Non- 72 >=60 [place] [address] CLINIC Uzbek mL/min/1.73m2 eGFR 87 >=[address] mL/min/1.73m2 Specimen Blood Performing Organization Address City/State/Zipcode Phone Number [address] [place] [address] LAB ONLY-COMPLETE BLOOD COUNT WITH DIFFERENTIAL (01/27/2020 10:04 PM CDT) [facility] WBC 7.7 4.0 - 11.0 K/uL [address] RBC 3.78 (L) 3.80 - 5.[address] M/uL Hemoglobin 10.7 (L) 11.5 - 15.[address] g/dL Hematocrit 33.5 (L) 35.0 - 45.0 % [address] MCV 88.6 80.0 - 98.[address] MCH 28.3 25.5 - 34.[address] MCHC 31.9 31.5 - 36.[address] g/dL RDW-CV 13.0 11.5 - 15.5 % [address] RDW-SD 42.2 35.5 - 50.[address] Platelet Count 233 140 - 400 K/uL [address] MPV 8.2 (L) 8.5 - 12.[address] Seg Neut Absolute 6.0 1.8 - 8.0 K/uL [address] Lymphocytes Absolute 1.0 0.8 - 4.1 K/uL [place] [id number] [facility] Monocytes Absolute 0.6 0.0 - 1.0 K/uL [address] Eosinophils Absolute 0.1 0.0 - 0.7 K/uL [place] [address] [facility] Basophil Absolute 0.0 0.0 - 0.2 K/uL [place] [address] [facility] Immature Granulocyte 0.02 0.00 - 0.06 [place] [address] [facility] Absolute K/uL Neutrophils Abs. 6,000 /uL [place] [address] [facility] (Segs and Bands) Neutrophils Percent 78.0 % [place] [address] [facility] Lymphocytes Percent 12.3 % [address] Monocytes Percent 7.1 % [address] Immature Granulocyte 0.3 % [address] Percent Eosinophils Percent 1.8 % [place] [address] [facility] Basophil Percent 0.5 % [address] Nucleated RBC 0 /[address] Specimen Blood Performing Organization Address [facility]/Zipcode Phone Number [address] [place] [address], [place] [address] LIPASE (01/27/2020 10:04 PM CDT) Pathologist [facility] Lipase 20 5 - 80 U/L [address] Specimen Blood Performing Organization Address [facility] Phone Number [address] [place] [address], [place] [address] documented in this encounter Visit Diagnoses Diagnosis Failure to thrive in adult - Primary Adult failure to thrive 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) Dehydration Diarrhea, unspecified type Primary malignant neoplasm of bronchus o f left upper lobe (HCC) Malignant neoplasm of upper lobe, bronch us or lung COPD with asthma (HCC) Chronic obstructive asthma, unspecified History of DVT (deep vein thrombosis) Personal history of venous thrombosis an d embolism Small cell carcinoma of lung (HCC) Malignant neoplasm of bronchus and lung, unspecified site Abdominal aortic aneurysm (AAA) without rupture (HCC) Lung cancer (HCC) Malignant neoplasm of bronchus and lung, unspecified site Weakness Other malaise and fatigue documented in this encounter Discharge Diagnoses Not on filedocumented in this encounter Administered Medications Medication Order MAR Action Action Date Dose Rate Site aspirin (ECOTRIN) enteric coated Given 01/31/2020 8:30 AM CDT 3 25 mg tablet 325 mg 325 mg, Oral, DAILY, First dose on Tue01/28/20 at 0900, Until Discontinued, Tablet should be swallowed whole and not be divided, crushed or chewed., Given 01/30/2020 10:08 AM CDT 325 mg Given 01/29/2020 8:54 AM CDT 325 mg dronabinol (MARINOL) capsule 5 mg Given 01/31/2020 6:14 AM CDT 5 mg 5 mg, Oral, Two times a day before meals, First dose on Tue01/30/20 at 1700, Until Discontinued Given 01/30/2020 5:18 PM CDT 5 mg enoxaparin (LOVENOX) subcutaneous injection Given 01/30/2020 8:50 PM CDT 40 mg solution 40 mg 40 mg, Subcutaneous, Bedtime, First dose on Tue01/28/20 at 2100, Until Discontinued, To avoid the loss of drug when using the 30 mg and 40 mg prefilled syringes, do not expel the air bubble from the syringe before the injection. For ADULT patients: Administration should be alternated between the left and right anterolateral and left and right posterolateral abdominal wall. The whole length of the needle should be introduced into a skin fold held between the thumb and forefinger; the skin fold should be held throughout the injection. To minimize bruising, do not rub the injection site after completion of the injection. For PEDIATRIC patients: Administration should be alternated between appropriate sites for patient age/weight (infants/small children = upper thigh; older children/adolescents = left and right anterolateral and left and right posterolateral abdominal wall). During administration to infants/smaller children sometimes the whole length of the needle is not "introduced" during the injection. Administer injection into a skin fold held between the thumb and forefinger; the skin fold should be held throughout the injection. To minimize bruising, do not rub the injection site after completion of the injection., Given 01/29/2020 8:52 PM CDT 40 mg Given 01/28/2020 8:38 PM CDT 40 mg FLUoxetine (PROzac) capsule 40 mg Given 01/31/2020 8:30 AM CDT 40 mg 40 mg, Oral, DAILY, First dose on Tue01/28/20 at 1100, Until Discontinued Given 01/30/2020 10:06 AM CDT 40 mg Given 01/29/2020 8:54 AM CDT 40 mg fluticasone-vilanterol (BREO ELLIPTA) 100-25 Given 9:21 AM CDT 1 puff mcg/puff inhaler 1 puff 1 puff, Inhalation, Daily, First dose on Tue01/28/20 at 0900, Until Discontinued, Rinse mouth after use. Formulary Substitute for home Advair, Given 01/30/2020 8:20 AM CDT 1 puff Given 01/29/2020 9:17 AM CDT 1 puff levothyroxine tablet 88 mcg Given 01/31/2020 6:14 AM CDT 88 mcg 88 mcg, Oral, DAILY, First dose on Tue01/30/20 at 0700, Until Discontinued Given 01/30/2020 6:33 AM CDT 88 mcg megestrol acetate (MEGACE) oral suspension Given 01/31/2020 8:30 AM CDT 400 mg (40 mg/mL) 400 mg 400 mg, Oral, DAILY, First dose on Tue01/28/20 at 1100, Until Discontinued, 10 mL, This medication is a low risk cytotoxic drug. Wear 2 pairs of chemo gloves for administration. If unable to administer dose intact - contact pharmacy for other administration options. Dispose of empty packages in the yellow cytotoxic waste. Dispose of unused or partial packages in the black waste containers., Given 01/30/2020 11:58 AM CDT 400 mg Given 01/29/2020 9:06 AM CDT 400 mg ondansetron (ZOFRAN ODT) dispersible tab let 4 mg 4 mg, Oral, Every four hours prn, Starti ng Tue01/28/20 at 0428, Until Discontinued, nausea, vomiting, Use FIRST. If ineffect jamari after 30 minutes use ondansetron IV, ondansetron (ZOFRAN) injection solution 4 mg 4 mg, IV, Every four hours prn, Starting Tue01/28/20 at 0428, Until Discontinued, nausea, vomiting, 2 mL, Use SECOND. If i neffective after 30 minutes and ondansetron ODT used, call physician for alternative . If preference is to further dilute for IV administration: First draw up patient-sp ecific dose, then dilute to 10 mL with 0.9% sodium chloride., predniSONE tablet 10 mg Given 01/31/2020 8:30 AM CDT 10 mg 10 mg, Oral, Daily, First dose on Fauzia 01/31/20 at 0900, Until Discontinued sodium chloride 0.9% flush (adult) 10 mL Given 01/31/2020 8:45 AM CDT 10 mL 10 mL, IV, Two times a day and prn, First dose on Tue01/27/20 at 2120, Until Discontinued, 10 mL, Flush IV line as scheduled and as often as necessary before and after meds., Given 01/30/2020 8:50 PM CDT 10 mL Given 01/30/2020 11:58 AM CDT 10 mL vitamin C (ascorbic acid) chewable tablet Given 01/31/2020 8:30 AM CDT 500 mg 500 mg 500 mg, Oral, DAILY, First dose on Tue01/28/20 at 0900, Until Discontinued Given 01/30/2020 10:06 AM CDT 500 mg Given 01/29/2020 8:54 AM CDT 500 mg vitamin D3 (cholecalciferol) tablet Given 01/31/2020 8:30 AM CD T 1,000 Units 1,000 Units 1,000 Units, Oral, DAILY, First dose on Tue01/28/20 at 0900, Until Discontinued Given 01/30/2020 10:06 AM CDT 1,000 Units Given 01/29/2020 8:54 AM CDT 1,000 Units Medication Order MAR Action Action Date Dose Rate Site cosyntropin (CORTROSYN) 0.25 mg Given 01/29/2020 12:19 PM CDT 0. 25 mg injection 0.25 mg 0.25 mg, IV, One time, 1 dose, Tue01/29/20 at 1000, Draw a baseline random cortisol level, give cosyntropin 250 mcg IV push and then repeat random cortisol levels 60 min post cosyntropin. Dilute 0.25 mg vial with 1 mL NS. After reconstitution, administer dose IV push over 2 minutes., dronabinol (MARINOL) capsule 2.5 mg Given 01/30/2020 6:32 AM CDT 2.5 mg 2.5 mg, Oral, Two times a day before meals, First dose on Tue01/28/20 at 1700, Until Discontinued Given 01/29/2020 4:45 PM CDT 2.5 mg Given 01/29/2020 7:24 AM CDT 2.5 mg gadobutrol (GADAVIST) 1 MMOL/ML solution 7.5 Given 0 6:35 PM CDT 7 mL mL 7.5 mL, IV, Now imaging, 1 dose, Starting Tue01/29/20 at 1839, Until Tue01/29/20 at 1835, 7.5 mL levothyroxine tablet 75 mcg Given 01/29/2020 7:05 AM CDT 75 mcg 75 mcg, Oral, DAILY, First dose on Tue01/28/20 at 0700, Until Discontinued Given 01/28/2020 7:16 AM CDT 75 mcg magnesium sulfate in dextrose 5% IV solution Given 01/28/2020 1 :05 AM CDT 1 g (premix) 1 g 1 g, IV, Now, 1 dose, Tue01/28/20 at 0015, 100 mL potassium chloride oral solution 10% 40 mEq Given 01/29/2020 4:17 PM CDT 40 mEq 40 mEq, Oral, One time, 1 dose, [facility] 01/29/20 at 1550, 30 mL, Do not administer full strength. Dilute each 15 mL of 10% solution with at least 90 mL of liquid., sodium chloride 0.9% (bolus) IV Given 01/27/2020 9:50 PM CD T 1,000 mL 999 mL/hr solution 1,000 mL 1,000 mL, IV, at 999 mL/hr, Now, 1 dose, [place] 01/27/20 at 2120, 1,000 mL sodium chloride 0.9% (bolus) IV Given 01/28/2020 12:03 AM CD T 1,000 mL 999 mL/hr solution 1,000 mL 1,000 mL, IV, at 999 mL/hr, Now, 1 dose, [place] 01/27/20 at 2355, 1,000 mL documented in this encounter
[2020-02-06] MEDS: Acetaminophen 325 MG Tab PO PRN (16:10)
[2020-02-07] MEDS: Levothyroxine 75 MCG Tab PO SCH (05:52)
[2020-02-07] MEDS: Dronabinol 2.5 MG Cap PO SCH ×2 (07:53→17:50)
[2020-02-07] MEDS: Formoterol/Mometasone 200-5 MCG 8.8 GM Inhaler IH SCH ×2 (09:09→20:31)
[2020-02-07] MEDS: Megestrol Susp 40 MG/ML ML (240 ML Bottle) PO SCH (09:09)
[2020-02-07] MEDS: Aspirin 325 MG Tab.EC PO SCH (09:10)
[2020-02-07] MEDS: FLUoxetine 20 MG Cap PO SCH (09:10)
[2020-02-07] MEDS: predniSONE 10 MG Tab PO SCH (09:10)
[2020-02-07] MEDS: Cholecalciferol (Vitamin D3) 25 MCG Tab PO SCH (09:10)
[2020-02-07] MEDS: Ascorbic Acid 500 MG Tab PO SCH (09:10)
[2020-02-07] MEDS: Multivitamins with Iron/Calcium/Folic Acid/Minerals Tab PO SCH (09:10)
[2020-02-07] MEDS: Albuterol 0.083% 2.5 MG/3 ML Neb Soln NEB PRN (09:15)
[2020-02-08] MEDS: Levothyroxine 75 MCG Tab PO SCH (05:44)
[2020-02-08] MEDS: Dronabinol 2.5 MG Cap PO SCH ×2 (06:29→17:05)
[2020-02-08] MEDS: Formoterol/Mometasone 200-5 MCG 8.8 GM Inhaler IH SCH ×2 (09:27→20:09)
[2020-02-08] MEDS: Megestrol Susp 40 MG/ML ML (240 ML Bottle) PO SCH (09:28)
[2020-02-08] MEDS: Aspirin 325 MG Tab.EC PO SCH (09:28)
[2020-02-08] MEDS: predniSONE 10 MG Tab PO SCH (09:29)
[2020-02-08] MEDS: FLUoxetine 20 MG Cap PO SCH (09:30)
[2020-02-08] MEDS: Cholecalciferol (Vitamin D3) 25 MCG Tab PO SCH (09:30)
[2020-02-08] MEDS: Multivitamins with Iron/Calcium/Folic Acid/Minerals Tab PO SCH (09:30)
[2020-02-08] MEDS: Ascorbic Acid 500 MG Tab PO SCH (09:32)
[2020-02-09] MEDS: Levothyroxine 75 MCG Tab PO SCH (06:06)
[2020-02-09] MEDS: Dronabinol 2.5 MG Cap PO SCH ×2 (06:29→17:26)
[2020-02-09] MEDS: Formoterol/Mometasone 200-5 MCG 8.8 GM Inhaler IH SCH ×2 (09:04→21:02)
[2020-02-09] MEDS: Megestrol Susp 40 MG/ML ML (240 ML Bottle) PO SCH (09:04)
[2020-02-09] MEDS: Aspirin 325 MG Tab.EC PO SCH (09:04)
[2020-02-09] MEDS: FLUoxetine 20 MG Cap PO SCH (09:05)
[2020-02-09] MEDS: Multivitamins with Iron/Calcium/Folic Acid/Minerals Tab PO SCH (09:05)
[2020-02-09] MEDS: Cholecalciferol (Vitamin D3) 25 MCG Tab PO SCH (09:05)
[2020-02-09] MEDS: predniSONE 10 MG Tab PO SCH (09:05)
[2020-02-09] MEDS: Ascorbic Acid 500 MG Tab PO SCH (09:09)
[2020-02-10] MEDS: Levothyroxine 75 MCG Tab PO SCH (05:26)
[2020-02-10] MEDS: Dronabinol 2.5 MG Cap PO SCH ×2 (06:35→17:06)
[2020-02-10] MEDS: Megestrol Susp 40 MG/ML ML (240 ML Bottle) PO SCH (08:22)
[2020-02-10] MEDS: Formoterol/Mometasone 200-5 MCG 8.8 GM Inhaler IH SCH ×2 (08:23→20:45)
[2020-02-10] MEDS: FLUoxetine 20 MG Cap PO SCH (08:24)
[2020-02-10] MEDS: predniSONE 10 MG Tab PO SCH (08:24)
[2020-02-10] MEDS: Ascorbic Acid 500 MG Tab PO SCH (08:24)
[2020-02-10] MEDS: Aspirin 325 MG Tab.EC PO SCH (08:24)
[2020-02-10] MEDS: Cholecalciferol (Vitamin D3) 25 MCG Tab PO SCH (08:25)
[2020-02-10] MEDS: Multivitamins with Iron/Calcium/Folic Acid/Minerals Tab PO SCH (08:25)
[2020-02-11] MEDS: Levothyroxine 75 MCG Tab PO SCH (05:34)
[2020-02-11] MEDS: Dronabinol 2.5 MG Cap PO SCH ×2 (06:29→17:09)
[2020-02-11] MEDS: Multivitamins with Iron/Calcium/Folic Acid/Minerals Tab PO SCH (09:08)
[2020-02-11] MEDS: Formoterol/Mometasone 200-5 MCG 8.8 GM Inhaler IH SCH ×2 (09:08→20:26)
[2020-02-11] MEDS: Aspirin 325 MG Tab.EC PO SCH (09:09)
[2020-02-11] MEDS: predniSONE 10 MG Tab PO SCH (09:09)
[2020-02-11] MEDS: Ascorbic Acid 500 MG Tab PO SCH (09:09)
[2020-02-11] MEDS: Megestrol Susp 40 MG/ML ML (240 ML Bottle) PO SCH (09:09)
[2020-02-11] MEDS: FLUoxetine 20 MG Cap PO SCH (09:09)
[2020-02-11] MEDS: Cholecalciferol (Vitamin D3) 25 MCG Tab PO SCH (09:09)
[2020-02-12] MEDS: Levothyroxine 75 MCG Tab PO SCH (05:27)
[2020-02-12] MEDS: Dronabinol 2.5 MG Cap PO SCH ×3 (05:28→17:24)
[2020-02-12] MEDS: Formoterol/Mometasone 200-5 MCG 8.8 GM Inhaler IH SCH ×2 (08:10→20:37)
[2020-02-12] MEDS: Aspirin 325 MG Tab.EC PO SCH (08:10)
[2020-02-12] MEDS: Megestrol Susp 40 MG/ML ML (240 ML Bottle) PO SCH (08:11)
[2020-02-12] MEDS: FLUoxetine 20 MG Cap PO SCH (08:11)
[2020-02-12] MEDS: predniSONE 10 MG Tab PO SCH (08:11)
[2020-02-12] MEDS: Ascorbic Acid 500 MG Tab PO SCH (08:12)
[2020-02-12] MEDS: Multivitamins with Iron/Calcium/Folic Acid/Minerals Tab PO SCH (08:12)
[2020-02-12] MEDS: Cholecalciferol (Vitamin D3) 25 MCG Tab PO SCH (08:12)
--- NOTE | 2020-02-12 08:40 | PCM.PN ---
- General Info Date of Service: 02/12/20 Admission Dx/Problem (Free Text): Patient states she has little short of breath. She denies cough, chest pain, fevers, chills, leg swelling. - Patient Data Vitals - Most Recent: Last Vital Signs Temp 98.2 F 02/12/20 07:00 Pulse 80 02/12/20 07:00 Resp 16 02/12/20 07:00 BP 132/54 L 02/12/20 07:00 Pulse Ox 98 02/12/20 07:00 Weight - Most Recent: 151 lb 4.8 oz Med Orders - Current: Current Medications Acetaminophen (Tylenol) 650 mg PO Q4H PRN PRN Reason: MILD PAIN Last Admin: 02/06/20 16:10 Dose: 650 mg Documented by: Albuterol (Proventil Neb Soln) 2.5 mg NEB Q4H PRN PRN Reason: Shortness of Breath Last Admin: 02/07/20 09:15 Dose: 2.5 mg Documented by: Ascorbic Acid (Vitamin C) 500 mg PO DAILY [facility] Last Admin: 02/12/20 08:12 Dose: 500 mg Documented by: Aspirin (Ecotrin) 325 mg PO DAILY [facility] Last Admin: 02/12/20 08:10 Dose: 325 mg Documented by: Cholecalciferol (Vitamin D3) 25 mcg PO DAILY [facility] Last Admin: 02/12/20 08:12 Dose: 25 mcg Documented by: Dronabinol (Marinol) 5 mg PO BIDAC [facility] Last Admin: 02/12/20 06:35 Dose: 5 mg Documented by: Fluoxetine HCl (Prozac) 40 mg PO DAILY [facility] Last Admin: 02/12/20 08:11 Dose: 40 mg Documented by: Levothyroxine Sodium (Levothyroxine) 75 mcg PO DAILY@0600 [facility] Last Admin: 02/12/20 05:27 Dose: 75 mcg Documented by: Megestrol Acetate (Megace 40 Mg/Ml Susp) 400 mg PO DAILY [facility] Last Admin: 02/12/20 08:11 Dose: 400 mg Documented by: Mometasone Furoate/Formoterol Fumar (Dulera 200-5 Mcg) 2 puff IH BID [facility] Last Admin: 02/12/20 08:10 Dose: 2 puff Documented by: Multivitamins/Minerals (Thera M Plus) 1 tab PO DAILY [facility] Last Admin: 02/12/20 08:12 Dose: 1 tab Documented by: Prednisone (Prednisone) 10 mg PO DAILY [facility] Last Admin: 02/12/20 08:11 Dose: 10 mg Documented by: Discontinued Medications Quetiapine Fumarate (Seroquel) 50 mg PO BEDTIME [facility] Last Admin: 02/03/20 21:00 Dose: 50 mg Documented by: Quetiapine Fumarate (Seroquel) 25 mg PO DAILY@1200 [facility] Last Admin: 02/04/20 10:03 Dose: 25 mg Documented by: - Exam General: Alert, Oriented, Cooperative Lungs: Clear to Auscultation, Normal Respiratory Effort Cardiovascular: Regular Rate, Regular Rhythm, No Murmurs Extremities: No Pedal Edema Sepsis Event Note - Evaluation Sepsis Screening Result: No Definite Risk - Focused Exam Vital Signs: Vital Signs Temp Pulse Resp BP Pulse Ox Pulse Ox 02/12/20 07:00 98.2 F 80 16 132/54 L 98 02/12/20 05:31 98 02/11/20 22:35 98 Date Exam was Performed: 02/12/20 Time Exam was Performed: 08:39 - Problem List & Annotations (1) Cachexia SNOMED Code(s): 704229632 Code(s): R64 - CACHEXIA Status: Acute Current Visit: Yes (2) Lung cancer SNOMED Code(s): 939175621 Code(s): C34.90 - MALIGNANT NEOPLASM OF UNSP PART OF UNSP BRONCHUS OR LUNG Status: Acute Current Visit: Yes Qualifiers: Laterality: left Lung location: upper lobe of lung Qualified Code(s): C34.12 - Malignant neoplasm of upper lobe, left bronchus or lung (3) Weakness SNOMED Code(s): 17535114 Code(s): R53.1 - WEAKNESS Status: Acute Current Visit: Yes (4) COPD (chronic obstructive pulmonary disease) SNOMED Code(s): 73226688 Code(s): J44.9 - CHRONIC OBSTRUCTIVE PULMONARY DISEASE, UNSPECIFIED Status: Chronic Current Visit: Yes Qualifiers: COPD type: emphysema (5) Hypothyroidism SNOMED Code(s): 58949006 Code(s): E03.9 - HYPOTHYROIDISM, UNSPECIFIED Status: Chronic Current Visit: Yes (6) MDD (major depressive disorder) SNOMED Code(s): 757838827 Code(s): F32.9 - MAJOR DEPRESSIVE DISORDER, SINGLE EPISODE, UNSPECIFIED Status: Chronic Current Visit: Yes (7) Metastatic cancer to brain Status: Acute Current Visit: No - Problem List Review Problem List Initiated/Reviewed/Updated: Yes - Plan Plan:: 1. Continue current care. 2. Patient states she wants go home. PT/OT and family think she is weaker and they're looking for [facility] placement which is going on currently.
[2020-02-13] MEDS: Levothyroxine 75 MCG Tab PO SCH (05:27)
[2020-02-13] MEDS: Dronabinol 2.5 MG Cap PO SCH ×3 (05:32→18:05)
--- NOTE | 2020-02-13 07:54 | PCM.PN ---
- General Info Date of Service: 02/13/20 Admission Dx/Problem (Free Text): Discuss with the patient about her depression. She is currently on 40 mg of Prozac a day. She states the medicine is meeting her needs per she said many years ago she had some suicidal thoughts and was in [facility]. She says it wasn't her idea was against her will. But since then she's been doing fine. She denies depression, sadness, anxiety, suicidal ideation, concentration problems or memory problems. She believes her medicine is working very good for her. - Patient Data Vitals - Most Recent: Last Vital Signs Temp 98.2 F 02/12/20 07:00 Pulse 80 02/12/20 07:00 Resp 16 02/12/20 07:00 BP 132/54 L 02/12/20 07:00 Pulse Ox 98 02/12/20 07:00 Weight - Most Recent: 151 lb 4.8 oz I&O - Last 24 Hours: Intake & Output 02/12/20 02/13/20 02/13/20 22:59 06:59 14:59 Intake Total 200 Balance 200 Med Orders - Current: Current Medications Acetaminophen (Tylenol) 650 mg PO Q4H PRN PRN Reason: MILD PAIN Last Admin: 02/06/20 16:10 Dose: 650 mg Documented by: Albuterol (Proventil Neb Soln) 2.5 mg NEB Q4H PRN PRN Reason: Shortness of Breath Last Admin: 02/07/20 09:15 Dose: 2.5 mg Documented by: Ascorbic Acid (Vitamin C) 500 mg PO DAILY [facility] Last Admin: 02/12/20 08:12 Dose: 500 mg Documented by: Aspirin (Ecotrin) 325 mg PO DAILY [facility] Last Admin: 02/12/20 08:10 Dose: 325 mg Documented by: Cholecalciferol (Vitamin D3) 25 mcg PO DAILY [facility] Last Admin: 02/12/20 08:12 Dose: 25 mcg Documented by: Dronabinol (Marinol) 5 mg PO BIDAC [facility] Last Admin: 02/13/20 06:48 Dose: Not Given Documented by: Fluoxetine HCl (Prozac) 40 mg PO DAILY [facility] Last Admin: 02/12/20 08:11 Dose: 40 mg Documented by: Levothyroxine Sodium (Levothyroxine) 75 mcg PO DAILY@0600 [facility] Last Admin: 02/13/20 05:27 Dose: 75 mcg Documented by: Megestrol Acetate (Megace 40 Mg/Ml Susp) 400 mg PO DAILY [facility] Last Admin: 02/12/20 08:11 Dose: 400 mg Documented by: Mometasone Furoate/Formoterol Fumar (Dulera 200-5 Mcg) 2 puff IH BID [facility] Last Admin: 02/12/20 20:37 Dose: 2 puff Documented by: Multivitamins/Minerals (Thera M Plus) 1 tab PO DAILY [facility] Last Admin: 02/12/20 08:12 Dose: 1 tab Documented by: Prednisone (Prednisone) 10 mg PO DAILY [facility] Last Admin: 02/12/20 08:11 Dose: 10 mg Documented by: Discontinued Medications Quetiapine Fumarate (Seroquel) 50 mg PO BEDTIME [facility] Last Admin: 02/03/20 21:00 Dose: 50 mg Documented by: Quetiapine Fumarate (Seroquel) 25 mg PO DAILY@1200 [facility] Last Admin: 02/04/20 10:03 Dose: 25 mg Documented by: - Exam Psy/Mental Status: Alert, Normal Affect, Normal Mood. No: Labile Mood, Anxious, Depressed, Agitated, Suicidal Ideation, Homicidal Ideation, Hallucinations, Withdrawal Symptoms Sepsis Event Note - Evaluation Sepsis Screening Result: No Definite Risk - Focused Exam Date Exam was Performed: 02/13/20 Time Exam was Performed: 07:52 - Problem List & Annotations (1) Cachexia SNOMED Code(s): 899470159 Code(s): R64 - CACHEXIA Status: Acute Current Visit: Yes (2) Lung cancer SNOMED Code(s): 650938742 Code(s): C34.90 - MALIGNANT NEOPLASM OF UNSP PART OF UNSP BRONCHUS OR LUNG Status: Acute Current Visit: Yes Qualifiers: Laterality: left Lung location: upper lobe of lung Qualified Code(s): C34.12 - Malignant neoplasm of upper lobe, left bronchus or lung (3) Weakness SNOMED Code(s): 97855184 Code(s): R53.1 - WEAKNESS Status: Acute Current Visit: Yes (4) COPD (chronic obstructive pulmonary disease) SNOMED Code(s): 24699604 Code(s): J44.9 - CHRONIC OBSTRUCTIVE PULMONARY DISEASE, UNSPECIFIED Status: Chronic Current Visit: Yes Qualifiers: COPD type: emphysema (5) Hypothyroidism SNOMED Code(s): 40911260 Code(s): E03.9 - HYPOTHYROIDISM, UNSPECIFIED Status: Chronic Current Visit: Yes (6) MDD (major depressive disorder) SNOMED Code(s): 820121465 Code(s): F32.9 - MAJOR DEPRESSIVE DISORDER, SINGLE EPISODE, UNSPECIFIED Status: Chronic Current Visit: Yes Qualifiers: Active/Remission status: in full remission (7) Metastatic cancer to brain Status: Acute Current Visit: No - Problem List Review Problem List Initiated/Reviewed/Updated: Yes - Plan Plan:: 1. Continue current care. 2. Patient states she wants go home. PT/OT and family think she is weaker and they're looking for correction placement which is going on currently.
[2020-02-13] MEDS: Formoterol/Mometasone 200-5 MCG 8.8 GM Inhaler IH SCH ×2 (08:24→20:22)
[2020-02-13] MEDS: Megestrol Susp 40 MG/ML ML (240 ML Bottle) PO SCH (08:24)
[2020-02-13] MEDS: FLUoxetine 20 MG Cap PO SCH (08:25)
[2020-02-13] MEDS: Ascorbic Acid 500 MG Tab PO SCH (08:25)
[2020-02-13] MEDS: predniSONE 10 MG Tab PO SCH (08:25)
[2020-02-13] MEDS: Cholecalciferol (Vitamin D3) 25 MCG Tab PO SCH (08:25)
[2020-02-13] MEDS: Multivitamins with Iron/Calcium/Folic Acid/Minerals Tab PO SCH (08:25)
[2020-02-13] MEDS: Aspirin 325 MG Tab.EC PO SCH (08:25)
[2020-02-14] MEDS: Dronabinol 2.5 MG Cap PO SCH ×3 (06:16→17:55)
[2020-02-14] MEDS: Levothyroxine 75 MCG Tab PO SCH (06:16)
[2020-02-14] MEDS: Formoterol/Mometasone 200-5 MCG 8.8 GM Inhaler IH SCH ×2 (09:31→20:33)
[2020-02-14] MEDS: Multivitamins with Iron/Calcium/Folic Acid/Minerals Tab PO SCH (09:31)
[2020-02-14] MEDS: FLUoxetine 20 MG Cap PO SCH (09:31)
[2020-02-14] MEDS: predniSONE 10 MG Tab PO SCH (09:31)
[2020-02-14] MEDS: Ascorbic Acid 500 MG Tab PO SCH (09:31)
[2020-02-14] MEDS: Aspirin 325 MG Tab.EC PO SCH (09:31)
[2020-02-14] MEDS: Cholecalciferol (Vitamin D3) 25 MCG Tab PO SCH (09:31)
[2020-02-14] MEDS: Megestrol Susp 40 MG/ML ML (240 ML Bottle) PO SCH (09:35)
[2020-02-15] MEDS: Dronabinol 2.5 MG Cap PO SCH ×2 (06:49→18:33)
[2020-02-15] MEDS: Levothyroxine 75 MCG Tab PO SCH (06:49)
[2020-02-15] MEDS: Formoterol/Mometasone 200-5 MCG 8.8 GM Inhaler IH SCH ×2 (08:46→21:03)
[2020-02-15] MEDS: Aspirin 325 MG Tab.EC PO SCH (08:47)
[2020-02-15] MEDS: Megestrol Susp 40 MG/ML ML (240 ML Bottle) PO SCH (08:47)
[2020-02-15] MEDS: Multivitamins with Iron/Calcium/Folic Acid/Minerals Tab PO SCH (08:48)
[2020-02-15] MEDS: predniSONE 10 MG Tab PO SCH (08:48)
[2020-02-15] MEDS: Ascorbic Acid 500 MG Tab PO SCH (08:48)
[2020-02-15] MEDS: Cholecalciferol (Vitamin D3) 25 MCG Tab PO SCH (08:48)
[2020-02-15] MEDS: FLUoxetine 20 MG Cap PO SCH (08:48)
[2020-02-16] MEDS: Levothyroxine 75 MCG Tab PO SCH (06:31)
[2020-02-16] MEDS: Dronabinol 2.5 MG Cap PO SCH ×2 (06:31→17:21)
[2020-02-16] MEDS: Megestrol Susp 40 MG/ML ML (240 ML Bottle) PO SCH (08:23)
[2020-02-16] MEDS: Formoterol/Mometasone 200-5 MCG 8.8 GM Inhaler IH SCH ×2 (08:23→20:38)
[2020-02-16] MEDS: Multivitamins with Iron/Calcium/Folic Acid/Minerals Tab PO SCH (08:25)
[2020-02-16] MEDS: predniSONE 10 MG Tab PO SCH (08:25)
[2020-02-16] MEDS: Aspirin 325 MG Tab.EC PO SCH (08:25)
[2020-02-16] MEDS: Ascorbic Acid 500 MG Tab PO SCH (08:25)
[2020-02-16] MEDS: FLUoxetine 20 MG Cap PO SCH (08:25)
[2020-02-16] MEDS: Cholecalciferol (Vitamin D3) 25 MCG Tab PO SCH (08:25)
[2020-02-17] MEDS: Dronabinol 2.5 MG Cap PO SCH ×2 (06:35→17:36)
[2020-02-17] MEDS: Levothyroxine 75 MCG Tab PO SCH (06:36)
[2020-02-17] MEDS: Ascorbic Acid 500 MG Tab PO SCH (08:18)
[2020-02-17] MEDS: Megestrol Susp 40 MG/ML ML (240 ML Bottle) PO SCH (08:18)
[2020-02-17] MEDS: Formoterol/Mometasone 200-5 MCG 8.8 GM Inhaler IH SCH ×2 (08:18→22:40)
[2020-02-17] MEDS: Aspirin 325 MG Tab.EC PO SCH (08:19)
[2020-02-17] MEDS: FLUoxetine 20 MG Cap PO SCH (08:19)
[2020-02-17] MEDS: Cholecalciferol (Vitamin D3) 25 MCG Tab PO SCH (08:19)
[2020-02-17] MEDS: predniSONE 10 MG Tab PO SCH (08:19)
[2020-02-17] MEDS: Multivitamins with Iron/Calcium/Folic Acid/Minerals Tab PO SCH (08:19)
[2020-02-17] MEDS ORDERED: Morphine Oral Concentrate 20 MG/ML 30 ML Bottle SL PRN (17:04)
[2020-02-18] MEDS: Levothyroxine 75 MCG Tab PO SCH (05:51)
[2020-02-18] MEDS: Dronabinol 2.5 MG Cap PO SCH ×2 (06:30→17:40)
[2020-02-18] MEDS: Aspirin 325 MG Tab.EC PO SCH (08:37)
[2020-02-18] MEDS: Megestrol Susp 40 MG/ML ML (240 ML Bottle) PO SCH (08:37)
[2020-02-18] MEDS: Formoterol/Mometasone 200-5 MCG 8.8 GM Inhaler IH SCH ×2 (08:37→20:01)
[2020-02-18] MEDS: FLUoxetine 20 MG Cap PO SCH (08:38)
[2020-02-18] MEDS: Cholecalciferol (Vitamin D3) 25 MCG Tab PO SCH (08:38)
[2020-02-18] MEDS: Multivitamins with Iron/Calcium/Folic Acid/Minerals Tab PO SCH (08:38)
[2020-02-18] MEDS: Ascorbic Acid 500 MG Tab PO SCH (08:38)
[2020-02-18] MEDS: predniSONE 10 MG Tab PO SCH (08:38)
[2020-02-19] MEDS: Levothyroxine 75 MCG Tab PO SCH (05:30)
[2020-02-19] MEDS: Dronabinol 2.5 MG Cap PO SCH (06:29)
[2020-02-19] MEDS: Formoterol/Mometasone 200-5 MCG 8.8 GM Inhaler IH SCH (08:30)
[2020-02-19] MEDS: Aspirin 325 MG Tab.EC PO SCH (08:30)
[2020-02-19] MEDS: predniSONE 10 MG Tab PO SCH (08:30)
[2020-02-19] MEDS: Multivitamins with Iron/Calcium/Folic Acid/Minerals Tab PO SCH (08:30)
[2020-02-19] MEDS: Megestrol Susp 40 MG/ML ML (240 ML Bottle) PO SCH (08:30)
[2020-02-19] MEDS: Ascorbic Acid 500 MG Tab PO SCH (08:30)
[2020-02-19] MEDS: FLUoxetine 20 MG Cap PO SCH (08:30)
[2020-02-19] MEDS: Cholecalciferol (Vitamin D3) 25 MCG Tab PO SCH (08:31)
--- NOTE | 2020-02-19 13:44 | PCM.PN ---
- General Info Date of Service: 02/19/20 Subjective Update: Angela was sitting up in her wheelchair, had finished her breakfast, confused as to day of week as well as month. Had issue over the weekend that she was trying to eat a dessert with a spoon through the cellophane, nursing had to help remove it so she could eat it. Her cognition has definitely worsened since I last saw her, not able to make executive decisions at this point. Also had some paranoid delusions when family was visiting with her, per Jemma at Care conference today, wondering if we can add or change her depression medication. - Patient Data Vitals - Most Recent: Last Vital Signs Temp 98.6 F 02/19/20 08:00 Pulse 78 02/19/20 08:00 Resp 18 02/19/20 08:00 BP 157/80 H 02/19/20 08:00 Pulse Ox 98 02/19/20 08:00 Weight - Most Recent: 150 lb Med Orders - Current: Current Medications Acetaminophen (Tylenol) 650 mg PO Q4H PRN PRN Reason: MILD PAIN Last Admin: 02/06/20 16:10 Dose: 650 mg Documented by: Albuterol (Proventil Neb Soln) 2.5 mg NEB Q4H PRN PRN Reason: Shortness of Breath Last Admin: 02/07/20 09:15 Dose: 2.5 mg Documented by: Ascorbic Acid (Vitamin C) 500 mg PO DAILY [facility] Last Admin: 02/19/20 08:30 Dose: 500 mg Documented by: Aspirin (Ecotrin) 325 mg PO DAILY [facility] Last Admin: 02/19/20 08:30 Dose: 325 mg Documented by: Cholecalciferol (Vitamin D3) 25 mcg PO DAILY [facility] Last Admin: 02/19/20 08:31 Dose: 25 mcg Documented by: Dronabinol (Marinol) 5 mg PO BIDAC [facility] Last Admin: 02/19/20 06:29 Dose: 5 mg Documented by: Fluoxetine HCl (Prozac) 40 mg PO DAILY [facility] Last Admin: 02/19/20 08:30 Dose: 40 mg Documented by: Levothyroxine Sodium (Levothyroxine) 75 mcg PO DAILY@0600 [facility] Last Admin: 02/19/20 05:30 Dose: 75 mcg Documented by: Lorazepam (Ativan) 0.25 mg PO Q6H PRN PRN Reason: Agitation Megestrol Acetate (Megace 40 Mg/Ml Susp) 400 mg PO DAILY [facility] Last Admin: 02/19/20 08:30 Dose: 400 mg Documented by: Mometasone Furoate/Formoterol Fumar (Dulera 200-5 Mcg) 2 puff IH BID [facility] Last Admin: 02/19/20 08:30 Dose: 2 puff Documented by: Morphine Sulfate (Morphine 20 Mg/Ml Soln) 5 mg SL Q4H PRN PRN Reason: Shortness of Breath Multivitamins/Minerals (Thera M Plus) 1 tab PO DAILY [facility] Last Admin: 02/19/20 08:30 Dose: 1 tab Documented by: Prednisone (Prednisone) 10 mg PO DAILY [facility] Last Admin: 02/19/20 08:30 Dose: 10 mg Documented by: Discontinued Medications Quetiapine Fumarate (Seroquel) 50 mg PO BEDTIME [facility] Last Admin: 02/03/20 21:00 Dose: 50 mg Documented by: Quetiapine Fumarate (Seroquel) 25 mg PO DAILY@1200 [facility] Last Admin: 02/04/20 10:03 Dose: 25 mg Documented by: - Exam General: Alert (confused), Cooperative, No Acute Distress Lungs: Normal Respiratory Effort, Decreased Breath Sounds (bibasilar), Crackles (throughout). No: Wheezing Cardiovascular: Regular Rate, Regular Rhythm GI/Abdominal Exam: Normal Bowel Sounds, Soft, Non-Tender, No Distention Extremities: No Pedal Edema Neurological: No New Focal Deficit Psy/Mental Status: Labile Mood Sepsis Event Note - Evaluation Sepsis Screening Result: No Definite Risk - Focused Exam Vital Signs: Vital Signs Temp Pulse Resp BP Pulse Ox 02/19/20 08:00 98.6 F 78 18 157/80 H 98 Date Exam was Performed: 02/19/20 Time Exam was Performed: 13:38 - Problem List & Annotations (1) Comfort measures only status SNOMED Code(s): 29638734820366 Code(s): Z51.5 - ENCOUNTER FOR PALLIATIVE CARE Status: Acute Current Visit: Yes (2) Weakness SNOMED Code(s): 08063185 Code(s): R53.1 - WEAKNESS Status: Acute Current Visit: Yes (3) COPD (chronic obstructive pulmonary disease) SNOMED Code(s): 64675533 Code(s): J44.9 - CHRONIC OBSTRUCTIVE PULMONARY DISEASE, UNSPECIFIED Status: Chronic Current Visit: Yes Qualifiers: COPD type: emphysema (4) Lung cancer SNOMED Code(s): 135283588 Code(s): C34.90 - MALIGNANT NEOPLASM OF UNSP PART OF UNSP BRONCHUS OR LUNG Status: Acute Current Visit: Yes Qualifiers: Laterality: left Lung location: upper lobe of lung Qualified Code(s): C34.12 - Malignant neoplasm of upper lobe, left bronchus or lung (5) Metastatic cancer to brain Status: Acute Current Visit: No (6) MDD (major depressive disorder) SNOMED Code(s): 998293983 Code(s): F32.9 - MAJOR DEPRESSIVE DISORDER, SINGLE EPISODE, UNSPECIFIED St atus: Chronic Current Visit: Yes Qualifiers: Active/Remission status: in full remission (7) Hypothyroidism SNOMED Code(s): 10602336 Code(s): E03.9 - HYPOTHYROIDISM, UNSPECIFIED Status: Chronic Current Visit: Yes - Problem List Review Problem List Initiated/Reviewed/Updated: Yes - Plan Plan:: 1. Comfort measures. 2. Waiting for acceptance at [facility], care conference today with Jemma, her daughter and Saundra with [facility]; Tracey, charge nurse, Karla, Discharge planning and myself. Discussed with pharmacy she is at the max dose of her Lexapro, with her paranoid delusions will add a lower dose of Seroquel 25 mg at bedtime, as the 50 mg dose she came on from [place], sedated her for over 24 hours. Will discontinue her vitamin supplements, add Senna for constipation since Morphine was added on Tuesday. Also discontinued Dulera and started Pulmicort nebs. She is eating well, on Megace and Marinol for appetite, will discontinue the Marinol.
[2020-02-19] MEDS: Budesonide 0.5 MG/2 ML Neb Susp NEB SCH (20:48)
[2020-02-19] MEDS ORDERED: QUEtiapine 25 MG Tab PO SCH (21:00)
[2020-02-20] MEDS: Levothyroxine 75 MCG Tab PO SCH (06:06)
[2020-02-20] MEDS: Budesonide 0.5 MG/2 ML Neb Susp NEB SCH ×2 (06:07→20:51)
[2020-02-20] MEDS: predniSONE 10 MG Tab PO SCH (08:15)
[2020-02-20] MEDS: FLUoxetine 20 MG Cap PO SCH (08:15)
[2020-02-20] MEDS: Megestrol Susp 40 MG/ML ML (240 ML Bottle) PO SCH (08:15)
[2020-02-20] MEDS: Acetaminophen 325 MG Tab PO PRN (21:08)
[2020-02-21] MEDS: Levothyroxine 75 MCG Tab PO SCH (05:14)
[2020-02-21] MEDS: Budesonide 0.5 MG/2 ML Neb Susp NEB SCH ×2 (06:21→22:00)
[2020-02-21] MEDS: FLUoxetine 20 MG Cap PO SCH (08:58)
[2020-02-21] MEDS: Megestrol Susp 40 MG/ML ML (240 ML Bottle) PO SCH (08:59)
[2020-02-21] MEDS: Dexamethasone 4 MG Tab PO SCH (08:59)
[2020-02-22] MEDS: Levothyroxine 75 MCG Tab PO SCH (05:52)
[2020-02-22] MEDS: Budesonide 0.5 MG/2 ML Neb Susp NEB SCH ×2 (06:27→21:10)
[2020-02-22] MEDS: Dexamethasone 4 MG Tab PO SCH ×2 (09:25→11:55)
[2020-02-22] MEDS: Megestrol Susp 40 MG/ML ML (240 ML Bottle) PO SCH ×2 (09:25→11:55)
[2020-02-22] MEDS: FLUoxetine 20 MG Cap PO SCH ×2 (09:25→11:55)
[2020-02-22] MEDS ORDERED: Morphine 10 MG/0.5 ML Oral Syringe SL PRN (10:00)
[2020-02-22] MEDS: LORazepam 0.5 MG Tab PO PRN ×2 (11:52→21:34)
[2020-02-22] MEDS: Morphine 10 MG/0.5 ML Oral Syringe SL PRN (21:34)
[2020-02-23] MEDS: Levothyroxine 75 MCG Tab PO SCH (05:38)
[2020-02-23] MEDS: Budesonide 0.5 MG/2 ML Neb Susp NEB SCH ×2 (06:48→21:19)
[2020-02-23] MEDS: Dexamethasone 4 MG Tab PO SCH (08:35)
[2020-02-23] MEDS: Megestrol Susp 40 MG/ML ML (240 ML Bottle) PO SCH (08:38)
[2020-02-23] MEDS: FLUoxetine 20 MG Cap PO SCH (08:39)
[2020-02-23] MEDS: LORazepam 0.5 MG Tab PO PRN ×2 (11:01→21:46)
[2020-02-23] MEDS: Morphine 10 MG/0.5 ML Oral Syringe SL PRN ×2 (11:03→21:46)
[2020-02-24] MEDS: Budesonide 0.5 MG/2 ML Neb Susp NEB SCH ×2 (06:17→21:20)
[2020-02-24] MEDS: Levothyroxine 75 MCG Tab PO SCH (06:17)
[2020-02-24] MEDS: Megestrol Susp 40 MG/ML ML (240 ML Bottle) PO SCH (08:27)
[2020-02-24] MEDS: Dexamethasone 4 MG Tab PO SCH (08:27)
[2020-02-24] MEDS: FLUoxetine 20 MG Cap PO SCH (08:27)
[2020-02-24] MEDS: Morphine 10 MG/0.5 ML Oral Syringe SL PRN ×2 (10:40→15:47)
[2020-02-24] MEDS: LORazepam 0.5 MG Tab PO PRN ×2 (10:41→21:24)
[2020-02-25] MEDS: Morphine 10 MG/0.5 ML Oral Syringe SL PRN (02:38)
[2020-02-25] MEDS: LORazepam 0.5 MG Tab PO PRN (04:57)
[2020-02-25] MEDS: Levothyroxine 75 MCG Tab PO SCH (08:20)
[2020-02-25] MEDS: Budesonide 0.5 MG/2 ML Neb Susp NEB SCH (08:20)
[2020-02-25] MEDS: Dexamethasone 4 MG Tab PO SCH (08:20)
[2020-02-25] MEDS: Megestrol Susp 40 MG/ML ML (240 ML Bottle) PO SCH (08:21)
[2020-02-25] MEDS: FLUoxetine 20 MG Cap PO SCH (08:21)
[2020-02-25] MEDS ORDERED: Tuberculin, PPD 5 Units/0.1 ML 1 ML MDV IDERM ONE (09:00)
--- NOTE | 2020-02-25 10:57 | PCM.DCSUM1 ---
Discharge Summary - Hospital Course HPI Initial Comments: Angela is a 74 yo with lung cancer,admitted for rehab in [facility]. She has had poor appetite, cachexia, after chemo, and is very weak. She also has a h/o COPD, MDD, AAA, hypothyroidism, and a h.o small bowel obstruction. Diagnosis: Stroke: No - Discharge Data Discharge Date: 02/25/20 ([facility]) Discharge Disposition: DC/Tfer to Hospice-Med Fac 51 Condition: Stable - Referral to Home Health Date of Face to Face Encounter: 02/25/20 Reason for Homebound Status: custodial facility Primary Care Physician: Lv Deshpande MD Skilled Need: Hospice care - Discharge Diagnosis/Problem(s) (1) Comfort measures only status SNOMED Code(s): 46367309799052 ICD Code: Z51.5 - ENCOUNTER FOR PALLIATIVE CARE Status: Acute Current Visit: Yes (2) Weakness SNOMED Code(s): 33021651 ICD Code: R53.1 - WEAKNESS Status: Acute Current Visit: Yes (3) COPD (chronic obstructive pulmonary disease) SNOMED Code(s): 36179379 ICD Code: J44.9 - CHRONIC OBSTRUCTIVE PULMONARY DISEASE, UNSPECIFIED Status: Chronic Current Visit: Yes Qualifiers: COPD type: emphysema (4) Lung cancer SNOMED Code(s): 530473774 ICD Code: C34.90 - MALIGNANT NEOPLASM OF UNSP PART OF UNSP BRONCHUS OR LUNG Status: Acute Current Visit: Yes Qualifiers: Laterality: left Lung location: upper lobe of lung Qualified Code(s): C34.12 - Malignant neoplasm of upper lobe, left bronchus or lung (5) Metastatic cancer to brain Status: Acute Current Visit: No (6) MDD (major depressive disorder) SNOMED Code(s): 653298872 ICD Code: F32.9 - MAJOR DEPRESSIVE DISORDER, SINGLE EPISODE, UNSPECIFIED Status: Chronic Current Visit: Yes Qualifiers: Active/Remission status: in full remission (7) Hypothyroidism SNOMED Code(s): 99539262 ICD Code: E03.9 - HYPOTHYROIDISM, UNSPECIFIED Status: Chronic Current Visit: Yes - Patient Summary/Data Consults: Consultations 01/31/20 13:14 OT Evaluation and Treatment [CONS] Routine Please Evaluate and Treat. OT Reason for Consult: ADL's This query below is only for informational purposes and is not editable. PT Evaluation and Treatment [CONS] Routine Please Evaluate and Treat. PT Reason for Consult: Ambulation This query below is only for informational purposes and is not editable. Hospital Course: Angela was admitted to swing bed for therapies for generalized weakness, she initially did not participate in PT/OT in part she had got 1 dose of Seroquel that was prescribed from [place], she slept for almost 48 hours, Seroquel was held after that initially dose. She was able to participate in PT/OT after that but had good and bad days. Care conference was discussed that she would need to go either Assisted Living or [facility] as her progression was slow. Family decided to make her comfort measures only as her confusion was worsening and some days unable to do therapies on 02/14. Last care conference 02/18, Jemma her daughter asked for her Prozac to be increased after some comments Angela had made to her sister, some paranoid delusions. Tried lower dose of the Seroquel at bedtime that night and she was chewing her Levothyroxine when they gave medications next morning. We increased her Prozac to 60 mg daily. Also had discontinued her Prednisone and switched to Dexamethasone in case she is having any cerebral edema from her brain mets. Also reviewed medication list with [facility], Hospice Nurse who will be admitting the patient today once she is admitted to [facility]. We discontinued her supplements, Marinol, Dulera. Added Senna, Pulmicort nebs bid. Kept her Albuterol nebs, Megace, Levothyroxine, Ativan as need agitation/anxiety and Morphine as needed air hunger, comfort measures. PPD placed today prior to discharge. - Patient Instructions Diet: Regular Diet as Tolerated Other/Special Instructions: Transfer to [facility]-Hospice care - Discharge Plan *PRESCRIPTION DRUG MONITORING PROGRAM REVIEWED*: Yes *COPY OF PRESCRIPTION DRUG MONITORING REPORT IN PATIENT [place]IB[place]: Not Applicable Prescriptions/Med Rec: FLUoxetine HCl [Fluoxetine HCl] 60 mg PO DAILY 14 Days #42 capsule LORazepam [Lorazepam] 0.25 mg PO Q6H PRN 14 Days #56 tablet PRN Reason: Anxiety Home Medications: Home Meds Acetaminophen [Tylenol] 650 mg PO Q4H PRN 11/13/18 [History] Levothyroxine 75 mcg PO DAILY 01/31/20 [History] Megestrol [Megace 40 MG/ML Susp] 400 mg PO DAILY 01/31/20 [History] Albuterol [Proventil Neb Soln] 2.5 mg NEB Q4H PRN neb 02/25/20 [Rx] Budesonide [Pulmicort] 0.5 mg NEB BIDRT neb 02/25/20 [Rx] Docusate Sodium/Sennosides [Senna Plus] 1 tab PO BID PRN tablet 02/25/20 [Rx] FLUoxetine HCl [Fluoxetine HCl] 60 mg PO DAILY 14 Days #42 capsule 02/25/20 [Rx] LORazepam [Lorazepam] 0.25 mg PO Q6H PRN 14 Days #56 tablet 02/25/20 [Rx] Morphine [Morphine 10 MG/0.5 ML Oral Syringe] 5 mg SL Q2H PRN syringe 02/25/20 [Rx] dexAMETHasone [Dexamethasone] 4 mg PO DAILY tablet 02/25/20 [Rx] Oxygen Therapy Mode: Nasal Cannula Oxygen Flow Rate (L/min): 2 - Discharge Summary/Plan Comment DC Time >30 min.: No - General Info Date of Service: 02/25/20 Subjective Update: Angela more confused, trying to eat her jelly with a fork this morning, did not want bread for it when asked. She hadn't touched her oatmeal yet. Denied any complaints, no pain, shortness of breath. PPD placed this morning. Functional Status: Denies: New Symptoms - Patient Data Vitals - Most Recent: Last Vital Signs Temp 98.2 F 02/25/20 08:00 Pulse 92 02/25/20 08:00 Resp 20 02/25/20 08:00 BP 137/96 H 02/25/20 08:00 Pulse Ox 97 02/25/20 08:00 Weight - Most Recent: 150 lb Med Orders - Current: Current Medications Acetaminophen (Tylenol) 650 mg PO Q4H PRN PRN Reason: MILD PAIN Last Admin: 02/20/20 21:08 Dose: 650 mg Documented by: Albuterol (Proventil Neb Soln) 2.5 mg NEB Q4H PRN PRN Reason: Shortness of Breath Last Admin: 02/07/20 09:15 Dose: 2.5 mg Documented by: Budesonide (Pulmicort) 0.5 mg NEB BIDRT [facility] Last Admin: 02/25/20 08:20 Dose: 0.5 mg Documented by: Dexamethasone (Dexamethasone) 4 mg PO DAILY [facility] Last Admin: 02/25/20 08:20 Dose: 4 mg Documented by: Fluoxetine HCl (Prozac) 60 mg PO DAILY [facility] Last Admin: 02/25/20 08:21 Dose: 60 mg Documented by: Levothyroxine Sodium (Levothyroxine) 75 mcg PO DAILY@0600 [facility] Last Admin: 02/25/20 08:20 Dose: 75 mcg Documented by: Lorazepam (Ativan) 0.25 mg PO Q6H PRN PRN Reason: Agitation Last Admin: 02/25/20 04:57 Dose: 0.25 mg Documented by: Megestrol Acetate (Megace 40 Mg/Ml Susp) 400 mg PO DAILY [facility] Last Admin: 02/25/20 08:21 Dose: 400 mg Documented by: Morphine Sulfate (Morphine 10 Mg/0.5 Ml Oral Syringe) 5 mg SL Q2H PRN PRN Reason: Shortness of Breath Last Admin: 02/25/20 02:38 Dose: 5 mg Documented by: Senna/Docusate Sodium (Senna Plus) 1 tab PO BID PRN PRN Reason: Constipation Discontinued Medications Ascorbic Acid (Vitamin C) 500 mg PO DAILY [facility] Last Admin: 02/19/20 08:30 Dose: 500 mg Documented by: Aspirin (Ecotrin) 325 mg PO DAILY [facility] Last Admin: 02/19/20 08:30 Dose: 325 mg Documented by: Cholecalciferol (Vitamin D3) 25 mcg PO DAILY [facility] Last Admin: 02/19/20 08:31 Dose: 25 mcg Documented by: Dronabinol (Marinol) 5 mg PO BIDAC [facility] Last Admin: 02/19/20 06:29 Dose: 5 mg Documented by: Fluoxetine HCl (Prozac) 40 mg PO DAILY [facility] Last Admin: 02/20/20 08:15 Dose: 40 mg Documented by: Mometasone Furoate/Formoterol Fumar (Dulera 200-5 Mcg) 2 puff IH BID [facility] Last Admin: 02/19/20 08:30 Dose: 2 puff Documented by: Morphine Sulfate (Morphine 20 Mg/Ml Soln) 5 mg SL Q4H PRN PRN Reason: Shortness of Breath Morphine Sulfate (Morphine 10 Mg/0.5 Ml Oral Syringe) 5 mg SL Q4H PRN PRN Reason: Shortness of Breath Last Admin: 02/22/20 09:27 Dose: 5 mg Documented by: Multivitamins/Minerals (Thera M Plus) 1 tab PO DAILY [facility] Last Admin: 02/19/20 08:30 Dose: 1 tab Documented by: Prednisone (Prednisone) 10 mg PO DAILY [facility] Last Admin: 02/20/20 08:15 Dose: 10 mg Documented by: Quetiapine Fumarate (Seroquel) 50 mg PO BEDTIME [facility] Last Admin: 02/03/20 21:00 Dose: 50 mg Documented by: Quetiapine Fumarate (Seroquel) 25 mg PO DAILY@1200 [facility] Last Admin: 02/04/20 10:03 Dose: 25 mg Documented by: Quetiapine Fumarate (Seroquel) 25 mg PO BEDTIME [facility] Last Admin: 02/19/20 20:48 Dose: 25 mg Documented by: Tuberculin PPD (Aplisol) 5 unit IDERM ONETIME ONE Stop: 02/25/20 09:01 Last Admin: 02/25/20 08:30 Dose: 5 unit Documented by: - Exam General: Reports: Alert, Cooperative (very confused,), No Acute Distress Lungs: Reports: Normal Respiratory Effort, Crackles (throughout ). Denies: Wheezing Cardiovascular: Reports: Regular Rate, Regular Rhythm GI/Abdominal Exam: Normal Bowel Sounds, Soft, Non-Tender, No Distention Extremities: No Pedal Edema Psy/Mental Status: Reports: Other (Pleasantly confused)
== END 2020-02-25 10:10 | disposition hospice, inpatient (51) | DRG 948 ==
LOC: FB.MS 01-31 11:31
PROVIDERS: ADMIT Family Medicine; ATTEND Family Medicine
DX: R53.1 Weakness (principal); C34.12 Malignant neoplasm of upper lobe, left bronchus or lung; C79.31 Secondary malignant neoplasm of brain; R64 Cachexia; Z51.5 Encounter for palliative care; M19.90 Unspecified osteoarthritis, unspecified site; J43.9 Emphysema, unspecified; Z66 Do not resuscitate; F32.9 Major depressive disorder, single episode, unspecified; H54.7 Unspecified visual loss; I71.9 Aortic aneurysm of unspecified site, without rupture; E03.9 Hypothyroidism, unspecified; Z79.890 Hormone replacement therapy; Z79.899 Other long term (current) drug therapy; Z88.0 Allergy status to penicillin; Z91.048 Other nonmedicinal substance allergy status; Z88.2 Allergy status to sulfonamides; Z88.1 Allergy status to other antibiotic agents; Z79.82 Long term (current) use of aspirin; Z87.01 Personal history of pneumonia (recurrent); Z90.49 Acquired absence of other specified parts of digestive tract; Z87.891 Personal history of nicotine dependence; Z68.26 Body mass index [BMI] 26.0-26.9, adult
CPT/HCPCS: 36415; 80053; 83615; 84443; 85025; 86580; 94640; 94760; 97116-GP; 97162-GP; 97165-GO; 97530-GO; 97530-GP; 97535-GO; A9270-GY; J7512; J8540